=== PATIENT | female | born 1945 | race Caucasian/White ===

== ENCOUNTER 2017-07-11 11:38 | Emergency (ER) | payer MEDICARE, BC ==
[~2017-07-11] VITALS: Ht 154.9 cm; Wt 63.5 kg
--- NOTE | 2017-07-11 12:08 | ED Abdominal Pain ---
General Chief Complaint: Abdominal/GI Problems Stated Complaint: VOMITING/STOMACH PAIN Source of Information: Patient, Family (daughter) Exam Limitations: No Limitations History of Present Illness Time Seen By Provider: 11:56 Initial Comments Patient has ER by private conveyance with her daughter and a chief complaint that just yesterday she was feeling fine but this morning she woke up and started having a severe sudden onset of pain in her right upper quadrant radiating down to her right lower quadrant. She says that this also brought on nausea because of the severe pain and she vomited yellow liquid but no blood in it. She's had no diarrhea she had a small bowel movement this morning and yesterday as well. She does have problems with chronic constipation but no irritable bowel or inflammatory bowel disease. She's had colonoscopies in the past where they found polyps but because of her emphysema they're not offering her colonoscopies electively anymore. She is not sure she's had diverticulosis. She says she had pain similar to this several years ago that was colitis and she had spent 3 days in the hospital getting IV antibiotics for it. She denies any fevers chills or rash. She does not have shortness of breath although she is feeling a burning sensation in her mid chest that she equates with heartburn after she threw up. Patient still smokes but does not have any history of heart disease. Allergies and Home Medications Allergies Coded Allergies: atropine (Verified Allergy, Unknown, 07/11/17) codeine (Verified Allergy, Unknown, 07/11/17) diphenoxylate (Verified Allergy, Unknown, 07/11/17) meperidine (Verified Allergy, Unknown, 07/11/17) Home Medications Budesonide/Formoterol Fumarate 10.2 Gm Hfa.aer.ad, 2 PUFF IH BID, (Reported) Omeprazole 20 Mg Capsule.dr, 20 MG PO, (Reported) Review of Systems Constitutional: No chills, No fever, No malaise EENTM: No Blurred Vision, No Double Vision Respiratory: Denies Cough, Denies Shortness of Air Cardiovascular: See HPI, Chest Pain (burning midline), Denies Edema, Denies Palpitations, Denies Syncope Gastrointestinal: Denies Abdomen Distended, Abdominal Pain, Constipated, Denies Diarrhea, Denies Difficulty Swallowing, Nausea, Vomiting Genitourinary: Denies Burning, Denies Discharge Musculoskeletal: No back pain, No joint pain Skin: No pruritus, No rash Psychiatric/Neurological: Denies Headache, Denies Numbness, Denies Paresthesia Past Ujcckdi-Uytaqo-Ecswro Hx Patient Social History Alcohol Use: Regular Use Alcohol Beverage of Choice: Beer Recreational Drug Use: No Smoking Status: Current Everyday Smoker Type Used: Cigarettes Recent Foreign Travel: No Contact w/Someone Who Travel: No Recent Hopitalizations: No Physical Abuse: No Sexual Abuse: No Mistreated: No Fear: No Seasonal Allergies Seasonal Allergies: No Surgeries History of Surgeries: Yes (hemrroid) Surgeries: Section Respiratory History of Respiratory Disorde: Yes Respiratory Disorders: Emphysema Currently Using CPAP: No Cardiovascular History of Cardiac Disorders: No Neurological History of Neurological Disord: No Genitourinary History of Genitourinary Disor: No Gastrointestinal History of Gastrointestinal Di: Yes Gastrointestinal Disorders: Colitis Musculoskeletal History of Musculoskeletal Dis: No Endocrine History of Endocrine Disorders: No HEENT History of HEENT Disorders: No Cancer History of Cancer: No Psychosocial History of Psychiatric Problem: No Suicide Risk Score: 0 Blood Transfusions History of Blood Disorders: No Physical Exam Vital Signs VS - Last 72 Hours, by Label 07/11/17 11:58 Temp 97.2 Pulse 53 Resp 20 B/P (MAP) 146/93 (110) Pulse Ox 99 Capillary Refill : General Appearance: WD/WN, moderate distress HEENT: PERRL/EOMI, normal ENT inspection, TMs normal, pharynx normal Neck: full range of motion, normal inspection Respiratory: chest non-tender, lungs clear, normal breath sounds, no respiratory distress, no accessory muscle use Cardiovascular: normal peripheral pulses, regular rate, rhythm, no edema, no murmur Peripheral Pulses: 2+ Radial Pulses (R), 2+ Radial Pulses (L) Gastrointestinal: normal bowel sounds, no organomegaly, no pulsatile mass, guarding, No rebound, tenderness (diffuse tenderness on the right side than left but none over McBurney's point, no rebound tenderness and negative for Barger sign.) Extremities: normal range of motion, non-tender, normal inspection, no pedal edema, normal capillary refill Back: normal inspection, CVA tenderness (L) (mild) Neurologic/Psychiatric: alert, normal mood/affect, oriented x 3 Skin: normal color, warm/dry Progress/Results/Core Measures Results/Orders Lab Results Laboratory Tests Test 12/24/17 11:54 07/11/17 13:58 Range/Units White Blood Count 11.1 H 4.3-11.0 10^3/uL Red Blood Count 5.99 H 4.35-5.85 10^6/uL Hemoglobin 14.9 11.5-16.0 G/DL Hematocrit 46 35-52 % Mean Corpuscular Volume 77 L 80-99 FL Mean Corpuscular Hemoglobin 25 25-34 PG Mean Corpuscular Hemoglobin Concent 33 32-36 G/DL Red Cell Distribution Width 20.1 H 10.0-14.5 % Platelet Count 732 H 130-400 10^3/uL Mean Platelet Volume 10.9 H 7.4-10.4 FL Neutrophils (%) (Auto) 52 42-75 % Lymphocytes (%) (Auto) 34 12-44 % Monocytes (%) (Auto) 12 0-12 % Eosinophils (%) (Auto) 2 0-10 % Basophils (%) (Auto) 1 0-10 % Neutrophils # (Auto) 5.7 1.8-7.8 X 10^3 Lymphocytes # (Auto) 3.7 1.0-4.0 X 10^3 Monocytes # (Auto) 1.3 H 0.0-1.0 X 10^3 Eosinophils # (Auto) 0.2 0.0-0.3 10^3/uL Basophils # (Auto) 0.1 0.0-0.1 10^3/uL Sodium Level 140 135-145 MMOL/L Potassium Level 3.9 3.6-5.0 MMOL/L Chloride Level 104 98-107 MMOL/L Carbon Dioxide Level 21 21-32 MMOL/L Anion Gap 15 H 5-14 MMOL/L Blood Urea Nitrogen 15 7-18 MG/DL Creatinine 0.75 0.60-1.30 MG/DL Estimat Glomerular Filtration Rate > 60 BUN/Creatinine Ratio 20 Glucose Level 102 70-105 MG/DL Calcium Level 9.7 8.5-10.1 MG/DL Magnesium Level 2.0 1.8-2.4 MG/DL Total Bilirubin 1.7 H 0.1-1.0 MG/DL Aspartate Amino Transf (AST/SGOT) 19 5-34 U/L Alanine Aminotransferase (ALT/SGPT) 15 0-55 U/L Alkaline Phosphatase 66 40-136 U/L Troponin I < 0.30 <0.30 NG/ML C-Reactive Protein High Sensitivity 0.12 0.00-0.50 MG/DL Total Protein 7.5 6.4-8.2 GM/DL Albumin 4.3 3.2-4.5 GM/DL Lipase 29 8-78 U/L Urine Color YELLOW Urine Clarity CLEAR Urine pH 6.5 5-9 Urine Specific [place] 1.010 L 1.016-1.022 Urine Protein 1+ H NEGATIVE Urine Glucose (UA) NEGATIVE NEGATIVE Urine Ketones 3+ H NEGATIVE Urine Nitrite NEGATIVE NEGATIVE Urine Bilirubin NEGATIVE NEGATIVE Urine Urobilinogen NORMAL NORMAL MG/DL Urine Leukocyte Esterase 1+ H NEGATIVE Urine RBC (Auto) NEGATIVE NEGATIVE Urine RBC NONE /HPF Urine WBC 5-10 H /HPF Urine Squamous Epithelial Cells 10-25 H /HPF Urine Crystals NONE /LPF Urine Bacteria TRACE /HPF Urine Casts NONE /LPF Urine Mucus NEGATIVE /LPF Urine Culture Indicated NO My Orders Orders - DOUG KAUR Ct Abd/Pelv W (Appendicitis) (07/11/17 12:08) Saline Lock/Iv-Start (07/11/17 12:08) Cbc With Automated Diff (07/11/17 12:08) Comprehensive Metabolic Panel (07/11/17 12:08) Hs C Reactive Protein (07/11/17 12:08) Lipase (07/11/17 12:08) Magnesium (07/11/17 12:08) Troponin I (07/11/17 12:08) Ua Culture If Indicated (07/11/17 12:08) Chest 1 View, Ap/Pa Only (07/11/17 12:08) Ekg Tracing (07/11/17 12:08) Fentanyl Injection (Sublimaze Injection (07/11/17 12:15) Ondansetron Injection (Zofran Injectio (07/11/17 12:15) Iohexol Injection (Omnipaque 350 Mg/Ml 1 (07/11/17 12:15) Ns (Ivpb) (Sodium Chloride 0.9% Ivpb Bag (07/11/17 12:15) Fentanyl Injection (Sublimaze Injection (07/11/17 13:45) Lidocaine 2% Viscous 15 Ml (Xylocaine Vi (07/11/17 14:15) Famotidine Tablet (Pepcid Tablet) (07/11/17 14:13) Antacid Suspension (Mylanta Suspension (07/11/17 14:15) Medications Given in ED Current Medications Medications Dose Ordered Sig/Aubrie Route Start Time Stop Time Status Last Admin Dose Admin Al Hydrox/Mg Hydrox/Simethicone 30 ml ONCE ONCE PO 07/11/17 14:15 07/11/17 14:16 DC 07/11/17 14:24 30 ML Fentanyl Citrate 50 mcg ONCE ONCE IVP 07/11/17 12:15 07/11/17 12:16 DC 07/11/17 12:40 50 MCG Fentanyl Citrate 50 mcg ONCE ONCE IVP 07/11/17 13:45 07/11/17 13:46 DC 07/11/17 13:39 50 MCG Iohexol 100 ml ONCE ONCE IV 07/11/17 12:15 07/11/17 12:23 DC 07/11/17 12:48 100 ML Lidocaine HCl 15 ml ONCE ONCE PO 07/11/17 14:15 07/11/17 14:16 DC 07/11/17 14:24 15 ML Ondansetron HCl 4 mg ONCE ONCE IVP 07/11/17 12:15 07/11/17 12:16 DC 07/11/17 12:40 4 MG Sodium Chloride 100 ml ONCE ONCE IV 07/11/17 12:15 07/11/17 12:23 DC 07/11/17 12:48 80 ML Vital Signs/I&O Vital Sign - Last 12Hours 07/11/17 11:58 Temp 97.2 Pulse 53 Resp 20 B/P (MAP) 146/93 (110) Pulse Ox 99 Progress Note #1: Time: 12:16 Progress Note Colitis/diverticulitis certainly could be in the differential. Appendicitis possible. She has no mesenteric signs. It is not a tearing sensation like a AAA and she does not seem to be a vasculopath despite being a smoker. It's all certain that the burning sensation she feels the middle of her chest probably more due to the after effects of having just vomited however we will go ahead and obtain an EKG and troponin given her age with for any cardiac involvement. She denies any prior cardiac history. Other possibilities would be a urinary tract infection or pyelonephritis or if we see a lot of blood in the UA we may think about a kidney stone given the severity of her pain and left CVA TTPerc. Progress Note #2: Time: 14:[address], x-ray unremarkable. Her CBC may show some hemoconcentration versus a mild nonspecific white count that is probably due just to her recent nausea and retching. Her nausea is better now that she's had some Zofran. She still having some pain but is improved after 100 g of fentanyl. Her CT may show a little ileus but this could be treated outpatient with some GI rest. We'll give her a GI cocktail to see if that helps the burning pain. Progress Note #3: Time: 15:21 Progress Note Urinalysis shows contamination versus possible UTI. We'll go ahead and treat her with an antibiotic however because of her symptoms seemed more upper and epigastric in nature and improved significantly after the GI cocktail we will treat her also with Carafate and have her set up with her primary care physician to do an upper endoscopy. We'll also send her some Bristow in case she has breakthrough pain. ECG Initial ECG Impression Date: Jul 11, 2017 Initial ECG Impression Time: 12:19 Initial ECG Rate: 51 Initial ECG Rhythm: Normal Sinus Initial ECG Intervals: Normal Initial ECG Impression: Nonspecific Changes (right bundle-branch block) Initial ECG Comparisson: Unchanged Comment No ST elevation or depression. Diagnostic Imaging Diagonstic Imaging: Xray Plain Films/CT/US/NM/MRI: chest (1v) Comments VIA [facility]. [place], [place] NAME: KACEY ANTONY [facility] REC#: [id number] PT STATUS: REG ER : 1945 PHYSICIAN: DOUG KAUR MD ADMIT DATE: 07/11/17/ER Draft Date of Exam:07/11/17 CHEST 1 VIEW, AP/PA ONLY Indication: Abdominal pain with nausea and vomiting Comparison: None Findings: Single frontal view of the chest is obtained. Heart size is normal. The pulmonary vessels appear unremarkable. There is moderate hiatal hernia. There is moderate elevation of the right hemidiaphragm. The lungs are clear. Impression: 1. Hiatal hernia and elevation of the right hemidiaphragm. 2. No additional significant abnormalities demonstrated. Dictated on workstation # [id number] Dict: 07/11/17 1304 Trans: 07/11/17 1307 [facility] [id number] Interpreted by: SHANDA CESAR DO Electronically signed by: Reviewed: Reviewed by Me Diagonstic Imaging: CT Plain Films/CT/US/NM/MRI: abdomen, pelvis Comments VIA [facility]. [place], [place] NAME: KACEY ANTONY [facility] REC#: [id number] PT STATUS: REG ER : 1945 PHYSICIAN: DOUG KAUR MD ADMIT DATE: 07/11/17/ER Draft Date of Exam:07/11/17 CT ABD/PELV W (APPENDICITIS) PROCEDURE: CT abdomen and pelvis with contrast, rule out appendicitis. TECHNIQUE: Multiple contiguous axial images were obtained through the abdomen and pelvis after the administration of intravenous contrast. INDICATION: Right lower quadrant pain. COMPARISON: None. FINDINGS: There is minimal atelectasis in the lung bases. There is a moderate hiatal hernia. There is an ill-defined low-density lesion in the inferior posterior left hepatic lobe measuring about 7 mm. This is too small to adequately characterize but probably represents a benign hemangioma. Portal vein enhances. The gallbladder appears unremarkable. The pancreas, spleen and adrenal glands appear unremarkable. Kidneys appear unremarkable. Ureters and bladder appear unremarkable. Uterus and adnexa appear unremarkable. There is diverticulosis without evidence of diverticulitis. Appendix appears normal. There is moderate amount of stool in the colon. There is some mildly distended fluid-filled small bowel in the mid and left upper abdomen which may be related to an ileus or enteritis. There is no free fluid, free air or adenopathy demonstrated. There is atherosclerosis of the abdominal aorta without aneurysm. No acute osseous abnormality is demonstrated. IMPRESSION: 1. There is some mild distended loops of small bowel in the mid and upper abdomen which is nonspecific but may be related to an enteritis or ileus. 2. Diverticulosis without evidence of diverticulitis. Appendix appears normal. 3. There is an indeterminate 7 mm low-density lesion in the liver, too small to characterize but probably a benign hemangioma. 4. Hiatal hernia. 5. No additional significant abnormality is demonstrated. Dictated on workstation # [id number] Dict: 07/11/17 1317 Trans: 07/11/17 1332 [facility] [id number] Interpreted by: SHANDA CESAR DO Electronically signed by: Reviewed: Reviewed by Me Departure Impression Impression: Primary Impression: Urinary tract infection Qualified Codes: N30.00 - Acute cystitis without hematuria Additional Impression: Epigastric abdominal pain Disposition: HOME, SELF-CARE Condition: Improved Departure-Patient Inst. Decision time for Depature: 15:22 Referrals: JULIO CESAR HAJI MD (PCP/Family) Primary Care Physician Patient Instructions: Urinary Tract Infection, Adult (DC) Add. Discharge Instructions: Drink plenty of fluids to flush her kidneys and we will culture urine and if the antibiotic that we have chosen for you is inappropriate we'll call you in 2- 3 days and change it up for you. Take the Keflex one capsule twice a day with food for 7 days. Your epigastric pain improved after you had a GI cocktail which may indicate ulcers or other disease of the stomach. We are going to put you on Carafate 1 tablet 4 times a day and I wanted to continue taking the omeprazole daily like you have been. Call your primary care physician Dr. Haji as soon as he is in the clinic and get set up to see him for a workup of your epigastric pain possibly to include an upper GI endoscopy. If you're having pain it's okay to use Tylenol 1000 mg every 8 hours as needed. Please avoid using NSAIDs such as ibuprofen, Motrin, Naprosyn, Aleve. If you have breakthrough pain you may use 1-2 Bristow every 6 hours as needed to control the pain. All discharge instructions reviewed with patient and/or family. Voiced understanding. Scripts Sucralfate (Carafate) 1 Gm Tablet 1 GM PO QID for 14 Days, #60 TAB 0 Refills Prov: DOUG KAUR 07/11/17 Cephalexin (Cephalexin) 500 Mg Tablet 500 MG PO BID for 7 Days, #14 TAB 0 Refills Prov: DOUG KAUR 07/11/17 Hydrocodone/Acetaminophen (Hydrocodon-Acetaminoph 7.5-325) 1 Each Tablet 1-2 EACH PO Q6H Y for BREAKTHROUGH PAIN, #20 TAB 0 Refills Prov: DOUG KAUR 07/11/17 Copy Copies To 1: JULIO CESAR HAJI MD, TITUS J Jul 11, 2017 12:08
[2017-07-11] MEDS ORDERED: OMEP20CA12 PO (12:09)
[2017-07-11] MEDS ORDERED: BUDE10.2 IH (12:09)
[2017-07-11] MEDS ORDERED: ONDANSETRON 4 MG/2 ML (SDV) Z0FRAN IVP ONE (12:15)
[2017-07-11] MEDS ORDERED: fentaNYL INJECTION 100 MCG/2 ML AMP IVP ONE ×2 (12:15→13:45)
[2017-07-11] MEDS ORDERED: IOHEXOL 350 MG/ML 100 ML (OMNIPAQUE 350) VIAL IV ONE (12:15)
[2017-07-11] MEDS ORDERED: NS 100 ML (IVPB) BAG IV ONE (12:15)
[2017-07-11 12:18] LABS: BASOPHILS # (AUTO) 0.1 10^3/uL (0.0-0.1); BASOPHILS % (AUTO) 1 % (0-10); EOSINOPHILS # (AUTO) 0.2 10^3/uL (0.0-0.3); EOSINOPHILS % (AUTO) 2 % (0-10); LYMPHOCYTES # (AUTO) 3.7 X 10^3 (1.0-4.0); LYMPHOCYTES % (AUTO) 34 % (12-44); MEAN CORPUSCULAR HEMOGLOBIN 25 PG (25-34); MEAN CORPUSCULAR HGB CONC 33 G/DL (32-36); MEAN CORPUSCULAR VOLUME 77 FL (80-99); MEAN PLATELET VOLUME 10.9 FL (7.4-10.4); MONOCYTES # (AUTO) 1.3 X 10^3 (0.0-1.0); MONOCYTES % (AUTO) 12 % (0-12); NEUTROPHILS # (AUTO) 5.7 X 10^3 (1.8-7.8); NEUTROPHILS % (AUTO) 52 % (42-75); PLATELET COUNT 732 10^3/uL (130-400); RED BLOOD COUNT 5.99 10^6/uL (4.35-5.85); RED CELL DISTRIBUTION WIDTH 20.1 % (10.0-14.5); WHITE BLOOD COUNT 11.1 10^3/uL (4.3-11.0)
[2017-07-11 12:33] LABS: ALANINE AMINOTRANSFERASE 15 U/L (0-55); ALBUMIN 4.3 GM/DL (3.2-4.5); ANION GAP 15 MMOL/L (5-14); ASPARTATE AMINO TRANSFERASE 19 U/L (5-34); BILIRUBIN,TOTAL 1.7 MG/DL (0.1-1.0); BLOOD UREA NITROGEN 15 MG/DL (7-18); BUN/CREATININE RATIO 20; CALCIUM 9.7 MG/DL (8.5-10.1); CARBON DIOXIDE 21 MMOL/L (21-32); CHLORIDE 104 MMOL/L (98-107); CREATININE SERUM 0.75 MG/DL (0.60-1.30); GFR ESTIMATED > 60; GLUCOSE 102 MG/DL (70-105); LIPASE 29 U/L (8-78); POTASSIUM 3.9 MMOL/L (3.6-5.0); SODIUM 140 MMOL/L (135-145); TOTAL PROTEIN 7.5 GM/DL (6.4-8.2); hs C REACTIVE PROTEIN 0.12 MG/DL (0.00-0.50)
[2017-07-11 12:39] LABS: TROPONIN I < 0.30 NG/ML (<0.30)
--- NOTE | 2017-07-11 13:08 | Diagnostic Imaging Report ---
Indication: Abdominal pain with nausea and vomiting Comparison: None Findings: Single frontal view of the chest is obtained. Heart size is normal. The pulmonary vessels appear unremarkable. There is moderate hiatal hernia. There is moderate elevation of the right hemidiaphragm. The lungs are clear. Impression: 1. Hiatal hernia and elevation of the right hemidiaphragm. 2. No additional significant abnormalities demonstrated. Dictated by: Dictated on workstation # [id number]
--- NOTE | 2017-07-11 13:33 | Diagnostic Imaging Report ---
PROCEDURE: CT abdomen and pelvis with contrast, rule out appendicitis. TECHNIQUE: Multiple contiguous axial images were obtained through the abdomen and pelvis after the administration of intravenous contrast. INDICATION: Right lower quadrant pain. COMPARISON: None. FINDINGS: There is minimal atelectasis in the lung bases. There is a moderate hiatal hernia. There is an ill-defined low-density lesion in the inferior posterior left hepatic lobe measuring about 7 mm. This is too small to adequately characterize but probably represents a benign hemangioma. Portal vein enhances. The gallbladder appears unremarkable. The pancreas, spleen and adrenal glands appear unremarkable. Kidneys appear unremarkable. Ureters and bladder appear unremarkable. Uterus and adnexa appear unremarkable. There is diverticulosis without evidence of diverticulitis. Appendix appears normal. There is moderate amount of stool in the colon. There is some mildly distended fluid-filled small bowel in the mid and left upper abdomen which may be related to an ileus or enteritis. There is no free fluid, free air or adenopathy demonstrated. There is atherosclerosis of the abdominal aorta without aneurysm. No acute osseous abnormality is demonstrated. IMPRESSION: 1. There is some mild distended loops of small bowel in the mid and upper abdomen which is nonspecific but may be related to an enteritis or ileus. 2. Diverticulosis without evidence of diverticulitis. Appendix appears normal. 3. There is an indeterminate 7 mm low-density lesion in the liver, too small to characterize but probably a benign hemangioma. 4. Hiatal hernia. 5. No additional significant abnormality is demonstrated. Dictated by: Dictated on workstation # [id number]
[2017-07-11 14:06] LABS: BILIRUBIN,URINE NEGATIVE (NEGATIVE); KETONES,URINE 3+ (NEGATIVE); LEUKOCYTE ESTERASE ,URINE 1+ (NEGATIVE); NITRITE,URINE NEGATIVE (NEGATIVE); PH,URINE 6.5 (5-9); PROTEIN,URINE 1+ (NEGATIVE); UROBILINOGEN,URINE NORMAL (NORMAL)
[2017-07-11] MEDS ORDERED: FAMOTIDINE 20 MG (PEPCID) TABLET PO STA (14:13)
[2017-07-11] MEDS ORDERED: LIDOCAINE 2% VISCOUS 15 ML UDC PO ONE (14:15)
[2017-07-11] MEDS ORDERED: ANTACID SUSP 30 ML UDC (MYLANTA) PO ONE (14:15)
[2017-07-11] MEDS ORDERED: CEPH500T PO (15:25)
[2017-07-11] MEDS ORDERED: SUCR1TAB36 PO (15:25)
[2017-07-11] MEDS ORDERED: HYDR-3816 PO (15:25)
[2017-07-11] MEDS ORDERED: HYDROcodone/APAP 7.5 MG/325 MG (LORTAB, LORCET PLUS) TABLET PO ONE (15:30)
[2017-07-11 15:35] VITALS: BP 162/78
== END 2017-07-11 15:35 | disposition home or self-care (01) ==
LOC: ER 11:42
DX: N39.0 Urinary tract infection, site not specified (principal); J43.9 Emphysema, unspecified; F17.210 Nicotine dependence, cigarettes, uncomplicated; Z87.59 Personal history of other complications of pregnancy, childbirth and the puerperium; Z87.19 Personal history of other diseases of the digestive system
CPT/HCPCS: 36415; 71010; 74177; 80053; 81000; 83690; 83735; 84484; 85025; 86141; 93005

== ENCOUNTER 2017-07-14 10:11 | Emergency (ER) | payer MEDICARE, BC ==
[~2017-07-14] VITALS: Ht 154.9 cm; Wt 63.5 kg
[~2017-07-14 10:11] MED LIST: BUDE10.2 IH; CEPH500T PO; HYDR-3816 PO; OMEP20CA12 PO; SUCR1TAB36 PO
[2017-07-14] MEDS ORDERED: NS IV 1000 ML 1,000 ML IV SCH (10:45)
[2017-07-14] MEDS ORDERED: ONDANSETRON 4 MG/2 ML (SDV) Z0FRAN IVP ONE (11:15)
[2017-07-14 11:22] LABS: BASOPHILS % (AUTO) 0 % (0-10); EOSINOPHILS # (AUTO) 0.1 10^3/uL (0.0-0.3); EOSINOPHILS % (AUTO) 1 % (0-10); LYMPHOCYTES # (AUTO) 1.3 X 10^3 (1.0-4.0); LYMPHOCYTES % (AUTO) 12 % (12-44); MEAN CORPUSCULAR HEMOGLOBIN 25 PG (25-34); MEAN CORPUSCULAR HGB CONC 33 G/DL (32-36); MEAN CORPUSCULAR VOLUME 75 FL (80-99); MEAN PLATELET VOLUME 11.1 FL (7.4-10.4); MONOCYTES # (AUTO) 2.3 X 10^3 (0.0-1.0); MONOCYTES % (AUTO) 21 % (0-12); NEUTROPHILS % (AUTO) 66 % (42-75); PLATELET COUNT 722 10^3/uL (130-400); RED BLOOD COUNT 6.75 10^6/uL (4.35-5.85); RED CELL DISTRIBUTION WIDTH 21.1 % (10.0-14.5); WHITE BLOOD COUNT 10.7 10^3/uL (4.3-11.0)
[2017-07-14 11:26] LABS: KETONES,URINE 3+ (NEGATIVE); LEUKOCYTE ESTERASE ,URINE 2+ (NEGATIVE); NITRITE,URINE NEGATIVE (NEGATIVE); PH,URINE 5 (5-9); PROTEIN,URINE 2+ (NEGATIVE); UROBILINOGEN,URINE 1 MG/DL (NORMAL)
[2017-07-14 11:36] LABS: BILIRUBIN,URINE 2+ (NEGATIVE); WBC,URINE 25-50 /HPF
[2017-07-14 11:37] LABS: SQUAMOUS EPITHELIAL CELL,UR 25-50 /HPF
[2017-07-14 11:44] LABS: BILIRUBIN,TOTAL 1.4 MG/DL (0.1-1.0); CALCIUM 10.3 MG/DL (8.5-10.1); CREATININE SERUM 1.04 MG/DL (0.60-1.30); POTASSIUM 4.5 MMOL/L (3.6-5.0); TOTAL PROTEIN 7.9 GM/DL (6.4-8.2)
[2017-07-14] MEDS ORDERED: NS IV 500 ML 500 ML IV SCH (11:45)
[2017-07-14] MEDS ORDERED: cefTRIAXone INJECTION 1,000 MG in NS (IVPB) 50 ML IV ONE (11:45)
[2017-07-14 11:49] LABS: BAND NEUTROPHILS 14 %; BASOPHILS % (MANUAL) 0 %; EOSINOPHILS % (MANUAL) 0 %; LYMPHOCYTES % (MANUAL) 15 %; NEUTROPHILS % (MANUAL) 52 %
[2017-07-14 11:50] LABS: ANISOCYTOSIS SLIGHT; MICROCYTOSIS SLIGHT
--- NOTE | 2017-07-14 11:56 | ED GI ---
General Chief Complaint: Abdominal/GI Problems Stated Complaint: N/V/D Nursing Triage Note: PT. WAS HERE ON WEDNESDAY BUT IS NOT GETTING BETTER. STATES SHE CAN'T TAKE HER MEDS THAT WERE PRESCRIBED FOR HER BECAUSE SHE CAN'T PUT ANYTHING ON HER STOMACH. C/O EMESIS EVERY 3-4 HRS. C/O SEVERE ABD PAIN. Sepsis Screen: Possible Sepsis Risk Source of Information: Patient Exam Limitations: No Limitations History of Present Illness Time Seen By Provider: 11:54 Initial Comments To ER with reports of nausea vomiting diarrhea and abdominal pain. She was seen here on 07/11 for the same. She did have a CT scan done and was diagnosed with a bladder infection. She has been unable to take the oral antibiotics because of nausea and vomiting. She complains of diffuse crampy abdominal pain. She's not had a bowel movement in 4 days but she is passing gas most recently this morning. No fevers or chills. She is unable to eat or drink because of the nausea Timing/Duration: 3-4 Days Severity/Quality: Moderate, Cramping Radiation: No Radiation, Back Activities at Onset: None Associated Symptoms: Nausea/Vomiting Allergies and Home Medications Allergies Coded Allergies: atropine (Verified Allergy, Unknown, 07/11/17) codeine (Verified Allergy, Unknown, 07/11/17) diphenoxylate (Verified Allergy, Unknown, 07/11/17) meperidine (Verified Allergy, Unknown, 07/11/17) Home Medications Budesonide/Formoterol Fumarate 10.2 Gm Hfa.aer.ad, 2 PUFF IH BID, (Reported) Cephalexin 500 Mg Tablet, 500 MG PO BID for 7 Days, #14 Ref 0 Prescribed by: DOUG KAUR on 07/11/17 1525 Hydrocodone/Acetaminophen 1 Each Tablet, 1-2 EACH PO Q6H PRN for BREAKTHROUGH PAIN, #20 Ref 0 Prescribed by: DOUG KAUR on 07/11/17 1525 Omeprazole 20 Mg Capsule.dr, 20 MG PO, (Reported) Sucralfate 1 Gm Tablet, 1 GM PO QID for 14 Days, #60 Ref 0 Prescribed by: DOUG KAUR on 07/11/17 1525 Review of Systems Constitutional: see HPI, No chills EENTM: No Symptoms Reported Respiratory: No Symptoms Reported Cardiovascular: No Symptoms Reported Gastrointestinal: See HPI, Abdominal Pain, Diarrhea, Nausea Genitourinary: No Symptoms Reported Musculoskeletal: no symptoms reported Skin: no symptoms reported Psychiatric/Neurological: No Symptoms Reported Endocrine: No Symptoms Reported Hematologic/Lymphatic: No Symptoms Reported Past Hsghgzv-Deuptn-Zpyozl Hx Patient Social History Alcohol Beverage of Choice: Beer Type Used: Cigarettes Recent Foreign Travel: No Contact w/Someone Who Travel: No Recent Infectious Disease Expo: No Recent Hopitalizations: No Seasonal Allergies Seasonal Allergies: No Surgeries History of Surgeries: Yes (hemrroid) Surgeries: Section Respiratory History of Respiratory Disorde: Yes Respiratory Disorders: Emphysema Currently Using CPAP: No Cardiovascular History of Cardiac Disorders: No Neurological History of Neurological Disord: No Genitourinary History of Genitourinary Disor: No Gastrointestinal History of Gastrointestinal Di: Yes Gastrointestinal Disorders: Colitis Musculoskeletal History of Musculoskeletal Dis: No Endocrine History of Endocrine Disorders: No HEENT History of HEENT Disorders: No Cancer History of Cancer: No Psychosocial History of Psychiatric Problem: No Blood Transfusions History of Blood Disorders: No Physical Exam Vital Signs VS - Last 72 Hours, by Label 07/14/17 10:35 Temp 98.1 Pulse 102 Resp 18 B/P (MAP) 149/79 (102) Pulse Ox 95 O2 Delivery Room Air Capillary Refill : Less Than 3 Seconds General Appearance: WD/WN, no apparent distress HEENT: PERRL/EOMI, normal ENT inspection Neck: non-tender, full range of motion Respiratory: normal breath sounds, no respiratory distress, no accessory muscle use Cardiovascular: regular rate, rhythm, no murmur Gastrointestinal: normal bowel sounds (hyperactive), non tender, soft, tenderness (diffuse crampy abdominal pain) Extremities: normal range of motion, non-tender Neurologic/Psychiatric: alert, normal mood/affect, oriented x 3 Skin: normal color, warm/dry Progress/Results/Core Measures Results/Orders Lab Results Laboratory Tests Test 07/14/17 11:12 07/14/17 11:19 Range/Units White Blood Count 10.7 4.3-11.0 10^3/uL Red Blood Count 6.75 H 4.35-5.85 10^6/uL Hemoglobin 16.6 H 11.5-16.0 G/DL Hematocrit 51 35-52 % Mean Corpuscular Volume 75 L 80-99 FL Mean Corpuscular Hemoglobin 25 25-34 PG Mean Corpuscular Hemoglobin Concent 33 32-36 G/DL Red Cell Distribution Width 21.1 H 10.0-14.5 % Platelet Count 722 H 130-400 10^3/uL Mean Platelet Volume 11.1 H 7.4-10.4 FL Neutrophils (%) (Auto) 66 42-75 % Lymphocytes (%) (Auto) 12 12-44 % Monocytes (%) (Auto) 21 H 0-12 % Eosinophils (%) (Auto) 1 0-10 % Basophils (%) (Auto) 0 0-10 % Neutrophils # (Auto) 7.0 1.8-7.8 X 10^3 Lymphocytes # (Auto) 1.3 1.0-4.0 X 10^3 Monocytes # (Auto) 2.3 H 0.0-1.0 X 10^3 Eosinophils # (Auto) 0.1 0.0-0.3 10^3/uL Basophils # (Auto) 0.0 0.0-0.1 10^3/uL Neutrophils % (Manual) 52 % Lymphocytes % (Manual) 15 % Monocytes % (Manual) 19 % Eosinophils % (Manual) 0 % Basophils % (Manual) 0 % Band Neutrophils 14 % Anisocytosis SLIGHT Microcytosis SLIGHT Sodium Level 137 135-145 MMOL/L Potassium Level 4.5 3.6-5.0 MMOL/L Chloride Level 100 98-107 MMOL/L Carbon Dioxide Level 22 21-32 MMOL/L Anion Gap 15 H 5-14 MMOL/L Blood Urea Nitrogen 36 H 7-18 MG/DL Creatinine 1.04 0.60-1.30 MG/DL Estimat Glomerular Filtration Rate 52 BUN/Creatinine Ratio 35 Glucose Level 126 H 70-105 MG/DL Calcium Level 10.3 H 8.5-10.1 MG/DL Total Bilirubin 1.4 H 0.1-1.0 MG/DL Aspartate Amino Transf (AST/SGOT) 15 5-34 U/L Alanine Aminotransferase (ALT/SGPT) 11 0-55 U/L Alkaline Phosphatase 57 40-136 U/L Total Protein 7.9 6.4-8.2 GM/DL Albumin 4.0 3.2-4.5 GM/DL Urine Color YELLOW Urine Clarity SLIGHTLY CLOUDY Urine pH 5 5-9 Urine Specific [place] 1.025 H 1.016-1.022 Urine Protein 2+ H NEGATIVE Urine Glucose (UA) NEGATIVE NEGATIVE Urine Ketones 3+ H NEGATIVE Urine Nitrite NEGATIVE NEGATIVE Urine Bilirubin 2+ H NEGATIVE Urine Urobilinogen 1 NORMAL MG/DL Urine Leukocyte Esterase 2+ H NEGATIVE Urine RBC (Auto) NEGATIVE NEGATIVE Urine RBC RARE /HPF Urine WBC 25-50 H /HPF Urine Squamous Epithelial Cells 25-50 H /HPF Urine Crystals NONE /LPF Urine Bacteria MODERATE H /HPF Urine Casts PRESENT /LPF Urine Hyaline Casts 5-10 H /LPF Urine Mucus NEGATIVE /LPF Urine Culture Indicated YES My Orders Orders - SHANICE AGUIAR APRN Cbc With Automated Diff (07/14/17 10:41) Comprehensive Metabolic Panel (07/14/17 10:41) Ua Culture If Indicated (07/14/17 10:41) Saline Lock/Iv-Start (07/14/17 10:42) Ns Iv 1000 Ml (Sodium Chloride 0.9%) (07/14/17 10:45) Ondansetron Injection (Zofran Injectio (07/14/17 11:15) Manual Differential (07/14/17 11:12) Urine Culture (07/14/17 11:19) Ceftriaxone Injection (Rocephin Injectio (07/14/17 11:45) Ns Iv 500 Ml (Sodium Chloride 0.9%) (07/14/17 11:45) Hyoscyamine Sl Tablet (Levsin Sl Tablet) (07/14/17 12:00) Medications Given in ED Current Medications Medications Dose Ordered Sig/Aubrie Route Start Time Stop Time Status Last Admin Dose Admin Ceftriaxone Sodium 1000 mg/ Sodium Chloride 50 ml @ 100 mls/hr ONCE ONCE IV 07/14/17 11:45 07/14/17 12:14 DC 07/14/17 12:13 100 MLS/HR Hyoscyamine Sulfate 0.25 mg ONCE ONCE PO 07/14/17 12:00 07/14/17 12:01 DC 07/14/17 12:12 0.25 MG Ondansetron HCl 4 mg ONCE ONCE IVP 07/14/17 11:15 07/14/17 11:16 DC 07/14/17 12:11 4 MG Vital Signs/I&O Vital Sign - Last 12Hours 07/14/17 10:35 Temp 98.1 Pulse 102 Resp 18 B/P (MAP) 149/79 (102) Pulse Ox 95 O2 Delivery Room Air Blood Pressure Mean: 102 Diagnostic Imaging Diagonstic Imaging: CT Comments CT FROM 07/11/17 NAME: KACEY ANTONY [facility] REC#: [id number] PHYSICIAN: DOUG KAUR MD CC: SHANDA CESAR DO; DOUG KAUR Page 2 of 2 RADIOLOGY REPORT VIA [facility], [facility]. [place], [place] CC: SHANDA CESAR DO; DOUG KAUR Page 1 of 2 RADIOLOGY REPORT IMPRESSION: 1. There is some mild distended loops of small bowel in the mid and upper abdomen which is nonspecific but may be related to an enteritis or ileus. 2. Diverticulosis without evidence of diverticulitis. Appendix appears normal. 3. There is an indeterminate 7 mm low-density lesion in the liver, too small to characterize but probably a benign hemangioma. 4. Hiatal hernia. 5. No additional significant abnormality is demonstrated. Dictated by: Dictated on workstation # [id number] Dict: 07/11/17 1317 Trans: 07/11/17 1539 Interpreted by: SHANDA CESAR DO Electronically signed by: SHANDA CESAR DO 07/11/17 1539 Departure Communication (Admissions) Progress Notes I discussed the case with Dr. Chris Haji. He recommends IV fluids in the emergency room, Rocephin, prescription for Zofran and discharged to home to continue oral antibiotics. He will follow up with her in the clinic later this week. Impression Impression: Primary Impression: Nausea and vomiting Additional Impression: Urinary tract infection Disposition: 01 HOME, SELF-CARE Condition: Stable Departure-Patient Inst. Decision time for Depature: 12:21 Referrals: CHRIS HAJI MD (PCP/Family) Primary Care Physician Patient Instructions: Urinary Tract Infection, Adult (DC) Add. Discharge Instructions: 1. Drink only clear liquids and have nothing to eat and her nausea is improved. This would include Gatorade, chicken broth, Jell-O. Return to ER for any high fevers or other concerns. Take nausea medication as needed control nausea and start your antibiotics tomorrow. All discharge instructions reviewed with patient and/or family. Voiced understanding. Scripts Ondansetron (Zofran Odt) 8 Mg Tab.rapdis 8 MG PO Q6H Y for NAUSEA/VOMITING-1ST LINE, #10 TAB Prov: SHANICE AGUIAR APRN 07/14/17 Copy Copies To 1: CHRIS HAJI MD, PETER J APRN Jul 14, 2017 11:56
[2017-07-14] MEDS ORDERED: HYOSCYAMINE 0.125 MG (LEVSIN) TAB PO ONE (12:00)
[2017-07-14] MEDS ORDERED: ONDA8TAB9 PO (12:23)
[2017-07-14 12:52] VITALS: BP 109/62
== END 2017-07-14 12:54 | disposition home or self-care (01) ==
LOC: EDUNIT# 10:11 → ER 10:13
DX: N39.0 Urinary tract infection, site not specified (principal); R11.2 Nausea with vomiting, unspecified; J43.9 Emphysema, unspecified; Z87.59 Personal history of other complications of pregnancy, childbirth and the puerperium; Z87.19 Personal history of other diseases of the digestive system
CPT/HCPCS: 36415; 80053; 81000; 85007; 85027; 87088; 96361; 96365; 96375

== ENCOUNTER → 2018-01-26 | Outpatient (CLI) | payer MEDICARE ==
[~2018-01-26] MED LIST changes: +HYDR-34 PO; -HYDR-3816 PO; +ONDA8TAB9 PO
[2018-01-26 13:24] LABS: CREATININE SERUM 1.26 MG/DL (0.60-1.30)
== END ==
LOC: LAB 12:45
PROVIDERS: ATTEND Internal Medicine Gastroenterology
DX: R10.11 Right upper quadrant pain (principal); R10.12 Left upper quadrant pain; R10.31 Right lower quadrant pain; R10.32 Left lower quadrant pain
CPT/HCPCS: 36415; 82565; 84520

== ENCOUNTER → 2018-01-27 | Outpatient (CLI) | payer MEDICARE ==
[~2018-01-27] MED LIST changes: +IOHEXOL 350 MG/ML 100 ML (OMNIPAQUE 350) VIAL IV ONE; +NS 250 ML (IVPB) BAG IV ONE
--- NOTE | 2018-01-27 13:17 | Diagnostic Imaging Report ---
PROCEDURE: CT abdomen and pelvis with contrast. TECHNIQUE: Multiple contiguous axial images were obtained through the abdomen and pelvis after administration of intravenous contrast. INDICATION: Diarrhea. FINDINGS: The previous CT abdomen/pelvis exam of 07/11/2017 did note fluid-filled segments of small bowel. It is not certain whether this finding was secondary to an ileus or enteritis. On this study, the dilated fluid-filled segments of small bowel are not as conspicuous as on the prior study. However, there are a few dilated fluid-filled segments of small bowel still present low in the pelvis. This appearance is nonspecific but could be secondary to enteritis. The appendix was visualized and is not abnormally thickened. There are numerous diverticula involving the sigmoid and descending colon, but there is no clear evidence for acute diverticulitis. There is no pelvic mass or free fluid collection evident. The urinary bladder and uterus are grossly unremarkable. The liver, spleen, pancreas, adrenals, aorta, and inferior vena cava show no sign of an acute abnormality. The stomach is filled with fluid and consequently difficult to assess. The large hiatal hernia seen previously is again evident and does not appear to have changed significantly. The lung bases are generally clear aside from mild compressive atelectasis due to the elevated right hemidiaphragm. The bone windows show no evidence for a fracture or for a destructive lesion. IMPRESSION: 1. There are a few fluid-filled segments of small bowel low in the pelvis. These findings are nonspecific but could be secondary to enteritis. 2. There is no acute pelvic abnormality noted otherwise. 3. The large hiatal hernia seen previously is again evident and no different. Dictated by: Dictated on workstation # [id number]
== END ==
LOC: RAD 07:57
PROVIDERS: ATTEND Internal Medicine Gastroenterology
DX: K44.9 Diaphragmatic hernia without obstruction or gangrene (principal); R19.7 Diarrhea, unspecified
CPT/HCPCS: 74177

== ENCOUNTER 2018-03-24 23:55 | Inpatient (IN) | payer MEDICARE ==
[~2018-03-24] VITALS: Ht 157.5 cm; Wt 62.3 kg
[~2018-03-24 23:55] MED LIST changes: -IOHEXOL 350 MG/ML 100 ML (OMNIPAQUE 350) VIAL IV ONE; -NS 250 ML (IVPB) BAG IV ONE
[2018-03-25] MEDS ORDERED: ONDANSETRON 4 MG/2 ML (SDV) Z0FRAN ONE (00:06)
[2018-03-25] MEDS ORDERED: NS IV 1000 ML 1,000 ML IV ONE (00:06)
[2018-03-25] MEDS ORDERED: ONDANSETRON 4 MG/2 ML (SDV) Z0FRAN IVP ONE (00:15)
[2018-03-25] MEDS: LIDOCAINE 2% VISCOUS 15 ML UDC PO ONE ×2 (00:15→00:23)
[2018-03-25] MEDS: ANTACID SUSP 30 ML UDC (MYLANTA) PO ONE ×2 (00:15→00:23)
[2018-03-25] MEDS ORDERED: raNItidine INJECTION 50 MG in NS (IVPB) 50 ML IV ONE (00:15)
[2018-03-25 00:21] LABS: BASOPHILS # (AUTO) 0.1 10^3/uL (0.0-0.1); BASOPHILS % (AUTO) 1 % (0-10); EOSINOPHILS # (AUTO) 0.2 10^3/uL (0.0-0.3); EOSINOPHILS % (AUTO) 2 % (0-10); HEMATOCRIT 52 % (35-52); LYMPHOCYTES % (AUTO) 15 % (12-44); MEAN CORPUSCULAR HEMOGLOBIN 26 PG (25-34); MEAN CORPUSCULAR HGB CONC 33 G/DL (32-36); MEAN CORPUSCULAR VOLUME 79 FL (80-99); MEAN PLATELET VOLUME 11.1 FL (7.4-10.4); MONOCYTES # (AUTO) 0.9 X 10^3 (0.0-1.0); MONOCYTES % (AUTO) 7 % (0-12); NEUTROPHILS # (AUTO) 10.4 X 10^3 (1.8-7.8); NEUTROPHILS % (AUTO) 76 % (42-75); PLATELET COUNT 710 10^3/uL (130-400); RED BLOOD COUNT 6.52 10^6/uL (4.35-5.85); RED CELL DISTRIBUTION WIDTH 19.9 % (10.0-14.5); WHITE BLOOD COUNT 13.6 10^3/uL (4.3-11.0)
[2018-03-25 00:35] LABS: ALBUMIN 4.3 GM/DL (3.2-4.5); BILIRUBIN,TOTAL 0.9 MG/DL (0.1-1.0); CALCIUM 10.3 MG/DL (8.5-10.1); CREATININE SERUM 1.02 MG/DL (0.60-1.30); MAGNESIUM 2.3 MG/DL (1.8-2.4); POTASSIUM 3.8 MMOL/L (3.6-5.0); TOTAL PROTEIN 7.5 GM/DL (6.4-8.2)
[2018-03-25 00:53] LABS: CLARITY,URINE CLEAR; COLOR,URINE YELLOW; GLUCOSE, URINE (UA) NEGATIVE (NEGATIVE); KETONES,URINE 1+ (NEGATIVE); LEUKOCYTE ESTERASE ,URINE 2+ (NEGATIVE); NITRITE,URINE NEGATIVE (NEGATIVE); PH,URINE 5 (5-9); PROTEIN,URINE 2+ (NEGATIVE); UROBILINOGEN,URINE 1 MG/DL (NORMAL)
[2018-03-25 00:55] LABS: BACTERIA,URINE MODERATE /HPF; BILIRUBIN,URINE 1+ (NEGATIVE); SQUAMOUS EPITHELIAL CELL,UR 0-2 /HPF; WBC,URINE 0-2 /HPF
[2018-03-25] MEDS ORDERED: PROMETHAZINE INJ 25 MG/ML (PHENERGAN) AMP IVP ONE (01:00)
[2018-03-25] MEDS ORDERED: fentaNYL INJECTION 100 MCG/2 ML AMP IVP ONE (01:00)
--- NOTE | 2018-03-25 02:46 | ED Abdominal Pain ---
General Chief Complaint: Abdominal/GI Problems Stated Complaint: ABD PAIN Nursing Triage Note: PT TO ROOM #7 [facility]IA [facility]. A&OX4. CO ABD PAIN WITH N/V/D. PT REPORTS SHE BEGAN TO HAVE ABD EARLY EVENING (03/24/18) WHICH PROGRESSIVELY GOT WORSE RESULTING IN N/V/D. [facility] REPORTS PT HAD REPETITIVE EMESIS IN TRANSIT EQUALLY TO 200 ML YELLOW VOMIT. PT NOTED TO BE GUARD ABD IN PAIN. PT REPORTS 30 DAYS PRIOR (02/22/18) PT HAD ABD SURGICAL LAP TO REMOVE ADHESIONS FOUND ON HER SMALL INTESTINE. EMS PLACED 20G IV TO LT AC IN TRANSIT TO ED AND REPORTS BS OF 136. Sepsis Screen: No Definite Risk Source of Information: Patient, EMS Exam Limitations: No Limitations History of Present Illness Date Seen by Provider: Mar 25, 2018 Time Seen by Provider: 23:56 Initial Comments This 73-year-old woman presents to the emergency room via EMS with a intense nausea and vomiting and upper abdominal pain. She received Zofran 4 mg by EMS. She has approximately 200 mL of brown emesis in an emesis bag. Fingerstick blood sugar was 136. Patient reports she had surgery for adhesional lysis performed at [facility] by Dr. Guy one month ago. She has also seen Dr. Ford for GI problems. Dr. Chris Haji is her primary care provider. She denies any fever. She has had multiple bowel movements at home today which were loose. Patient notes she has a large hiatal hernia. She had similar pain on the prior visit which resolved with GI cocktail. Allergies and Home Medications Allergies Coded Allergies: atropine (Verified Allergy, Unknown, 07/11/17) codeine (Verified Allergy, Unknown, 07/11/17) diphenoxylate (Verified Allergy, Unknown, 07/11/17) meperidine (Verified Allergy, Unknown, 07/11/17) Home Medications Budesonide/Formoterol Fumarate 10.2 Gm Hfa.aer.ad, 2 PUFF IH BID, (Reported) Cephalexin 500 Mg Tablet, 500 MG PO BID Prescribed by: DOUG KAUR on 07/11/17 1525 Hydrocodone Bit/Acetaminophen 1 Each Tablet, 1-2 EACH PO Q6H PRN for BREAKTHROUGH PAIN Prescribed by: DOUG KAUR on 07/11/17 1525 Ondansetron 8 Mg Tab.rapdis, 8 MG PO Q6H PRN for NAUSEA/VOMITING-1ST LINE Prescribed by: SHANICE AGUIAR on 07/14/17 1223 Sucralfate 1 Gm Tablet, 1 GM PO QID Prescribed by: DOUG KAUR on 07/11/17 1525 Patient Home Medication List Home Medication List Reviewed: Yes Review of Systems Review of Systems Constitutional: no symptoms reported EENTM: No Symptoms Reported Respiratory: No Symptoms Reported Cardiovascular: No Symptoms Reported Gastrointestinal: See HPI Genitourinary: No Symptoms Reported Musculoskeletal: no symptoms reported Skin: no symptoms reported Psychiatric/Neurological: No Symptoms Reported Endocrine: No Symptoms Reported Hematologic/Lymphatic: No Symptoms Reported Past Rgwpglz-Wdohgv-Xwsxqs Hx Patient Social History Alcohol Use: Occasionally Uses Number of Drinks Today: AA Alcohol Beverage of Choice: Beer Recreational Drug Use: No Smoking Status: Current Everyday Smoker Type Used: Cigarettes 2nd Hand Smoke Exposure: Yes Recent Foreign Travel: No Contact w/Someone Who Travel: No Recent Infectious Disease Expo: No Recent Hopitalizations: No Physical Abuse: No Sexual Abuse: No Seasonal Allergies Seasonal Allergies: No Past Medical History Surgeries: Yes (hemrroid,DNC,CERCLAGE) Abdominal (adhesiolysis), Section Respiratory: Yes COPD, Emphysema Currently Using CPAP: No Cardiac: No Neurological: No Genitourinary: No Gastrointestinal: Yes Colitis, Hiatal Hernia Musculoskeletal: No Endocrine: No HEENT: No Cancer: No Psychosocial: No Integumentary: No Blood Disorders: No Physical Exam Vital Signs Vital Signs - First Documented 03/24/18 03/25/18 23:55 00:58 Temp 98.4 Pulse 87 Resp 18 B/P (MAP) 137/83 (101) Pulse Ox 95 O2 Delivery Room Air O2 Flow Rate 2.00 Capillary Refill : Less Than 3 Seconds Height/Weight/BMI Height: 5'2.00" Weight: 137lbs. oz. 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4-10.4 FL Neutrophils (%) (Auto) 76 H 42-75 % Lymphocytes (%) (Auto) 15 12-44 % Monocytes (%) (Auto) 7 0-12 % Eosinophils (%) (Auto) 2 0-10 % Basophils (%) (Auto) 1 0-10 % Neutrophils # (Auto) 10.4 H 1.8-7.8 X 10^3 Lymphocytes # (Auto) 2.0 1.0-4.0 X 10^3 Monocytes # (Auto) 0.9 0.0-1.0 X 10^3 Eosinophils # (Auto) 0.2 0.0-0.3 10^3/uL Basophils # (Auto) 0.1 0.0-0.1 10^3/uL Sodium Level 139 135-145 MMOL/L Potassium Level 3.8 3.6-5.0 MMOL/L Chloride Level 104 98-107 MMOL/L Carbon Dioxide Level 22 21-32 MMOL/L Anion Gap 13 5-14 MMOL/L Blood Urea Nitrogen 15 7-18 MG/DL Creatinine 1.02 0.60-1.30 MG/DL Estimat Glomerular Filtration Rate 53 BUN/Creatinine Ratio 15 Glucose Level 137 H 70-105 MG/DL Calcium Level 10.3 H 8.5-10.1 MG/DL Corrected Calcium 10.1 8.5-10.1 MG/DL Magnesium Level 2.3 1.8-2.4 MG/DL Total Bilirubin 0.9 0.1-1.0 MG/DL Aspartate Amino Transf (AST/SGOT) 19 5-34 U/L Alanine Aminotransferase (ALT/SGPT) 17 0-55 U/L Alkaline Phosphatase 71 40-136 U/L Total Protein 7.5 6.4-8.2 GM/DL Albumin 4.3 3.2-4.5 GM/DL Lipase 29 8-78 U/L Urine Color YELLOW Urine Clarity CLEAR Urine pH 5 5-9 Urine Specific [place] 1.030 H 1.016-1.022 Urine Protein 2+ H NEGATIVE Urine Glucose (UA) NEGATIVE NEGATIVE Urine Ketones 1+ H NEGATIVE Urine Nitrite NEGATIVE NEGATIVE Urine Bilirubin 1+ H NEGATIVE Urine Urobilinogen 1 NORMAL MG/DL Urine Leukocyte Esterase 2+ H NEGATIVE Urine RBC (Auto) 1+ H NEGATIVE Urine RBC NONE /HPF Urine WBC 0-2 /HPF Urine Squamous Epithelial Cells 0-2 /HPF Urine Crystals NONE /LPF Urine Bacteria MODERATE H /HPF Urine Casts NONE /LPF Urine Mucus NEGATIVE /LPF Urine Culture Indicated YES My Orders Orders - HELLEN ANDERSON MD Saline Lock/Iv-Start (03/25/18 00:06) Cbc With Automated Diff (03/25/18 00:06) Comprehensive Metabolic Panel (03/25/18 00:06) Lipase (03/25/18 00:06) Magnesium (03/25/18 00:06) Ua Culture If Indicated (03/25/18 00:06) Saline Lock/Iv-Start (03/25/18 00:06) Ns Iv 1000 Ml (Sodium Chloride 0.9%) (03/25/18 00:06) Ondansetron Injection (Zofran Injectio (03/25/18 00:15) Ranitidine Injection (Zantac Injection) (03/25/18 00:15) Lidocaine 2% Viscous 15 Ml (Xylocaine Vi (03/25/18 00:15) Antacid Suspension (Mylanta Suspension (03/25/18 00:15) Ondansetron Injection (Zofran Injectio (03/25/18 00:06) Fentanyl Injection (Sublimaze Injection (03/25/18 01:00) Promethazine Injection (Phenergan Injec (03/25/18 01:00) Urine Culture (03/25/18 00:44) Ct Abdomen/Pelvis W (03/25/18 01:04) Medications Given in ED Current Medications Medications Dose Ordered Sig/Aubrie Route Start Time Stop Time Status Last Admin Dose Admin Fentanyl Citrate 50 mcg ONCE ONCE IVP 03/25/18 01:00 03/25/18 01:01 DC 03/25/18 00:51 50 MCG Ondansetron HCl 4 mg ONCE ONCE IVP 03/25/18 00:15 03/25/18 00:16 DC 03/25/18 00:10 4 MG Promethazine HCl 25 mg ONCE ONCE IVP 03/25/18 01:00 03/25/18 01:01 DC 03/25/18 00:51 25 MG Ranitidine HCl 50 mg/Sodium Chloride 52 ml @ 156 mls/hr ONCE ONCE IV 03/25/18 00:15 03/25/18 00:34 DC 03/25/18 00:23 156 MLS/HR Sodium Chloride 1,000 ml @ 0 mls/hr Q0M ONCE IV 03/25/18 00:06 03/25/18 00:09 DC 03/25/18 00:22 0 MLS/HR Vital Signs/I&O 03/24/18 03/25/18 23:55 00:58 Temp 98.4 Pulse 87 Resp 18 B/P (MAP) 137/83 (101) Pulse Ox 95 96 O2 Delivery Room Air Nasal Cannula O2 Flow Rate 2.00 03/25/18 00:00 Intake Total 0 ml Balance 0 ml Blood Pressure Mean: 101 Progress Progress Note : Progress Note Patient was given an additional 4 mg of Zofran. She then wanted to try a GI cocktail. However, her vomiting became refractory and she could not drink the GI cocktail. She was further treated with Phenergan. Fentanyl was used for pain control. Ranitidine was given for an antacid therapy. Patient was found to have a leukocytosis in the context of continued abdominal pain and refractory nausea and vomiting. CT scan was pursued. She was found to have a high-grade small bowel obstruction on CT imaging. She was given Rocephin for suspected urinary tract infection. Dr. Montero was consulted for surgical evaluation. Diagnostic Imaging Diagonstic Imaging: CT Plain Films/CT/US/NM/MRI: abdomen, pelvis Comments CT abdomen and pelvis viewed by me and stat rad report reviewed. There is a high-grade small bowel obstruction with probable transition near the terminal ileum. Appendix is normal. Elevation of the right hemidiaphragm. Large hiatal hernia. Marked sigmoid diverticulosis without diverticulitis. Trace fluid in the right subdiaphragmatic space in the pelvic cul-de-sac. Departure Communication (Admissions) Time/Spoke to Admitting Phy: 02:56 Dr. Chris Haji Time/Spoke to Consulting Phy: 02:55 Dr. Montero Impression Primary Impression: Small bowel obstruction Additional Impressions: Nausea and vomiting Qualified Codes: R11.2 - Nausea with vomiting, unspecified Abdominal pain Qualified Codes: R10.84 - Generalized abdominal pain Urinary tract infection Qualified Codes: N39.0 - Urinary tract infection, site not specified Hiatal hernia Disposition: ADMITTED INPATIENT Condition: Improved Admissions Decision to Admit Reason: Admit from ER (General) Decision to Admit/Date: Mar 25, 2018 Time/Decision to Admit Time: 02:50 Departure-Patient Inst. Referrals: CHRIS HAJI MD (PCP/Family) Primary Care Physician HELLEN ANDERSON MD Mar 25, 2018 02:46
[2018-03-25] MEDS ORDERED: cefTRIAXone FOR IV USE 1,000 MG in NS (IVPB) 50 ML IV ONE (03:15)
[2018-03-25] MEDS ORDERED: D5 1/2 NS W/KCL 20 MEQ/L 1,000 ML IV ONE (04:36)
[2018-03-25] MEDS: D5 1/2 NS W/KCL 20 MEQ/L 1,000 ML IV SCH ×3 (04:36→23:47)
[2018-03-25] MEDS ORDERED: fentaNYL INJECTION 100 MCG/2 ML AMP IV PRN (05:15)
[2018-03-25] MEDS ORDERED: ONDANSETRON 4 MG/2 ML (SDV) Z0FRAN IV PRN (05:15)
[2018-03-25] MEDS ORDERED: PROMETHAZINE INJ 25 MG/ML (PHENERGAN) AMP IV PRN (05:15)
--- NOTE | 2018-03-25 06:47 | Diagnostic Imaging Report ---
PROCEDURE: CT abdomen and pelvis with contrast. TECHNIQUE: Multiple contiguous axial images were obtained through the abdomen and pelvis after administration of intravenous contrast. INDICATION: Abdominal pain COMPARISON STUDY: CT scan from January the . FINDINGS: Large hiatal hernia is present. There is marked elevation of the right diaphragm. No infiltrates are present in the lung bases. There is a small right subdiaphragmatic effusion. The liver, gallbladder, spleen, pancreas, adrenal glands and kidneys appear normal. Small bowel loops are markedly dilated fluid-filled. Distal small bowel is decompressed. Small bowel loops measure up to 4 cm in size. No mass is present. The appendix appears normal. Small amount of ascites is present. The uterus is atrophied. Urinary bladder appears normal. A few colonic diverticula are present. IMPRESSION: 1. There is a distal small bowel obstruction. 2. Diverticulosis without inflammation. 3. There is a right subdiaphragmatic effusion and ascites in the pelvis. 4. There is a large hiatal hernia. 5. The right diaphragm is markedly elevated with questionable diaphragmatic paralysis. Findings agree with [facility] report. Dictated by: Dictated on workstation # [id number]
--- NOTE | 2018-03-25 07:05 | History & Physical ---
History of Present Illness History of Present Illness Reason for visit/HPI 73 yo F with history of diaphragmatic hernia, COPD, GERD admitted for a small bowel obstruction. She reports onset was last evening with vomiting and everytime she vomited she would have diarrhea. Of note she had lysis of adhesions surgery with Dr. Guy at [place] about 1 month ago. Pt has had loose bowel movements in the last 24hours. Abdominal pain and nausea did not go away with zofran in the ER. CT scan was done demonstrating the small bowel obstruction. Pt was admitted for further evaluation. Pt was given rocephin in ER to cover for possible UTI. Culture was sent. Dr. Montero was consulted for the admitting diagnosis of small bowel obstruction. Pt this AM reports she is doing much better; nausea nearly gone and abdominal pain significantly improved. She is disappointed though because the lysis surgery was suppose to resolve her GI issues along with Linzess. This is her first bout of SBO but wonders if all the other abdominal issues she has been seeing Dr. Patel about were also SBO. No history of Diabetes Mellitus. No fevers. Date of Admission Mar 25, 2018 at 03:04 Date Seen by Provider: Mar 25, 2018 Time Seen by Provider: 08:05 I consulted on this patient on 03/25/18 07:00 Attending Physician Chris Haji MD Admitting Physician Chris Haji MD Consult Dr. Montero Allergies and Home Medications Allergies Coded Allergies: atropine (Verified Allergy, Unknown, 07/11/17) codeine (Verified Allergy, Unknown, 07/11/17) diphenoxylate (Verified Allergy, Unknown, 07/11/17) meperidine (Verified Allergy, Unknown, 07/11/17) Home Medications Budesonide/Formoterol Fumarate 10.2 Gm Hfa.aer.ad, 2 PUFF IH BID, (Reported) Cephalexin 500 Mg Tablet, 500 MG PO BID Prescribed by: DOUG KAUR on 07/11/17 1525 Hydrocodone Bit/Acetaminophen 1 Each Tablet, 1-2 EACH PO Q6H PRN for BREAKTHROUGH PAIN Prescribed by: DOUG KAUR on 07/11/17 1525 Ondansetron 8 Mg Tab.rapdis, 8 MG PO Q6H PRN for NAUSEA/VOMITING-1ST LINE Prescribed by: SHANICE AGUIAR on 07/14/17 1223 Sucralfate 1 Gm Tablet, 1 GM PO QID Prescribed by: DOUG KAUR on 07/11/17 1525 Patient Home Medication List Home Medication List Reviewed: Yes Past Aturyhx-Spekxl-Gpurau Hx Patient Social History Alcohol Use: Occasionally Uses Number of Drinks Today: AA Alcohol Beverage of Choice: Beer Recreational Drug Use: No Smoking Status: Current Everyday Smoker Type Used: Cigarettes 2nd Hand Smoke Exposure: Yes Physical Abuse Screen: No Sexual Abuse: No Recent Foreign Travel: No Contact w/other who traveled: No Recent Hopitalizations: No Recent Infectious Disease Expo: No Seasonal Allergies Seasonal Allergies: No Surgeries Yes (hemrroid,DNC,CERCLAGE) Abdominal (adhesiolysis), Section Respiratory Yes Currently Using CPAP: No Cardiovascular No Neurological No Genitourinary No Gastrointestinal Yes Colitis, Hiatal Hernia Musculoskeletal No Endocrine History of Endocrine Disorders: No HEENT History of HEENT Disorders: No Cancer No Psychosocial History of Psychiatric Problem: No Integumentary History of Skin or Integumenta: No Blood Transfusions History of Blood Disorders: No Family Medical History Family Hx: Patient reports no known family medical history. Review of Systems Review of Systems General: No Chills, No Night Sweats HEENT: No Head Aches, No Visual Changes Pulmonary: No Dyspnea, No Cough Cardiovascular: No: Chest Pain, Palpitations, Orthopnea Gastrointestinal: Nausea (much improved), Vomiting, Abdominal Pain, Diarrhea Genitourinary: No Dysuria, No Frequency Musculoskeletal: No: neck pain, shoulder pain Neurological: Weakness; No: Confusion Physical Exam Vital Signs Vital Signs - First Documented 03/24/18 03/25/18 23:55 00:58 Temp 98.4 Pulse 87 Resp 18 B/P (MAP) 137/83 (101) Pulse Ox 95 O2 Delivery Room Air O2 Flow Rate 2.00 Capillary Refill : Less Than 3 Seconds Height, Weight, BMI Height: 5'2.00" Weight: 137lbs. 6.0oz. 62.779012bl; 25.1 BMI Method:Stated General Appearance: WD/WN, Mild Distress HEENT: PERRL/EOMI Neck: Full Range of Motion, Non Tender, Supple Respiratory: Chest Non Tender, Lungs Clear, Normal Breath Sounds, No Accessory Muscle Use, No Respiratory Distress, Decreased Breath Sounds (right lower base- ) Cardiovascular: Regular Rate, Rhythm, No Edema Gastrointestinal: Non Tender, Soft, Other (a few bowel sounds- no tinkling sound) Rectal: Deferred Back: No CVA Tenderness, No Vertebral Tenderness Extremity: Non Tender, No Calf Tenderness Neurologic/Psychiatric: Alert, Oriented x3, Normal Mood/Affect Skin: Warm/Dry Lymphatic: No Adenopathy Assessment/Plan Assessment/Plan Admission Dx Small bowel obstruction Admission Status: Inpatient Order (span 2 midnights) Reason for Inpatient Admission: Patient is vomiting repeatedly and was found to have a small bowel obstruction that will need close monitoring over the next few days (will span 2 midnights) Assessment and Plan 73 yo F Small bowel obstruction- Dr. Montero consulted, IVF, fentanyl for pain control prn, ambulation, bowel rest R11.2 nausea/vomiting- zofran, phenergan prn (J44.9) Chronic obstructive pulmonary disease- continue home inhalers. (K21.9) Gastro-esophageal reflux disease- (K44.9) Diaphragmatic hernia- aware of this, noted again on CT Dispo: IVFs, bowel rest, pain management- Surgery to see patient. Of note patient would like to be transferred to [place] for Dr. Guy and Veto to evaluate her if surgery becomes more likely. -Pt is improved- soft abdomen, bowel sounds noted- NTTP- Pt would like some coffee as she reports it usually does the trick of opening things up. Will await urine culture to before continuing rocephin for UTI as UA likely was not a clean catch. Problems: (1) Small bowel obstruction (2) Abdominal pain Qualifiers: Qualified Codes: R10.84 - Generalized abdominal pain (3) Nausea and vomiting Qualifiers: Qualified Codes: R11.2 - Nausea with vomiting, unspecified (4) Hiatal hernia Clinical Quality Measures DVT/VTE Risk/Contraindication: Risk Factor Score Per Nursin RFS Level Per Nursing on Admit: 4+=Very High CHRIS HAJI MD Mar 25, 2018 07:05
[2018-03-25 08:00] VITALS: BP 114/61
[2018-03-25] MEDS: PANTOPRAZOLE 40 MG (PROTONIX) VIAL IV SCH (09:08)
[2018-03-25] MEDS ORDERED: PANT40TA3 PO (09:29)
[2018-03-25] MEDS ORDERED: LINA145C PO (09:29)
[2018-03-25] MEDS ORDERED: RT-ADVAIR HFA 115/21 MCG PER PUFF IH SCH (10:47)
[2018-03-25 12:00] VITALS: BP 102/62
--- NOTE | 2018-03-25 12:14 | Consultation ---
History of Present Illness History of Present Illness Patient Consulted On(alden/time) 03/25/18 12:04 Date Seen by Provider: Mar 25, 2018 Time Seen by Provider: 10:50 History of Present Illness Surgery was consulted for management of SBO Per Dr. Arambula: 73 yo F with history of diaphragmatic hernia, COPD, GERD admitted for a small bowel obstruction. She reports onset was last evening with vomiting and everytime she vomited she would have diarrhea. Of note she had lysis of adhesions surgery with Dr. Guy at [facility] about 1 month ago. Pt has had loose bowel movements in the last 24hours. Abdominal pain and nausea did not go away with zofran in the ER. CT scan was done demonstrating the small bowel obstruction. Pt was admitted for further evaluation. Pt was given rocephin in ER to cover for possible UTI. Culture was sent. I went to see patient w/ Dr. Boss. She reports she is feeling much better this morning, has not vomited since being in the ER last night and her pain has improved. The patient reports she first started having symptoms around of 2016 which consisted of abdominal pain and when the pain was really bad, vomiting. She also experienced alternating diarrhea/constipation. She denies blood in her vomitus or stool. She ultimately had surgery one month ago for lysis of adhesions. Her symptoms resolved until yesterday when she had "the exact same" symptoms as before her surgery. She vomited several times and had several loose stools yesterday. She has not had a BM yet today. Truong Boss DO I did the exam with Moriah and the interview, he put all information into the note. Allergies and Home Medications Allergies Coded Allergies: atropine (Verified Allergy, Unknown, 07/11/17) codeine (Verified Allergy, Unknown, 07/11/17) diphenoxylate (Verified Allergy, Unknown, 07/11/17) meperidine (Verified Allergy, Unknown, 07/11/17) Home Medications Budesonide/Formoterol Fumarate 10.2 Gm Hfa.aer.ad, 2 PUFF IH BID, (Reported) Linaclotide 145 Mcg Capsule, 145 MCG PO DAILY, (Reported) Pantoprazole Sodium 40 Mg Tablet.dr, 40 MG PO DAILY, (Reported) Patient Home Medication List Home Medication List Reviewed: Yes Past Svlrtns-Hutdan-Eazxiz Hx Patient Social History Alcohol Use: Occasionally Uses Number of Drinks Today: AA Recreational Drug Use: No Smoking Status: Current Everyday Smoker Type Used: Cigarettes 2nd Hand Smoke Exposure: Yes Recent Foreign Travel: No Contact w/Someone Who Travel: No Recent Infectious Disease Expo: No Recent Hopitalizations: No Physical Abuse Screen: No Sexual Abuse: No Seasonal Allergies Seasonal Allergies: No Surgeries History of Surgeries: Yes (hemrroid,DNC,CERCLAGE) Surgeries: Abdominal (adhesiolysis), Section Respiratory History of Respiratory Disorde: Yes Respiratory Disorders: COPD, Emphysema Cardiovascular History of Cardiac Disorders: No Neurological History of Neurological Disord: No Reproductive System : No Female Reproductive Disorders: Denies Genitourinary History of Genitourinary Disor: No Gastrointestinal History of Gastrointestinal Di: Yes Gastrointestinal Disorders: Colitis, Obstructive Bowel, Hiatal Hernia Musculoskeletal History of Musculoskeletal Dis: No Endocrine History of Endocrine Disorders: No HEENT History of HEENT Disorders: No Cancer History of Cancer: No Psychosocial History of Psychiatric Problem: No Integumentary History of Skin or Integumenta: No Blood Transfusions History of Blood Disorders: No Family Medical History Significant Family History: Heart Disease Family Medial History: Cardiovascular disease 19 FATHER Review of Systems-General Constitutional: No chills, No diaphoresis, No fever; weight gain (states sometimes she'll gain 8-9 pounds in a day when she's constipated) EENTM: No eye pain, No vision loss Respiratory: cough; No hemoptysis Cardiovascular: No chest pain, No edema, No Hx of Intervention Gastrointestinal: abdominal pain, constipation, diarrhea; No hematemesis, No melena; nausea, vomiting Genitourinary: No dysuria, No hematuria : No Musculoskeletal: No back pain, No muscle pain Skin: No change in color, No rash Psychiatric/Neurological: Denies Anxiety, Denies Depressed, Denies Headache, Denies Paresthesia Other No bruising or bleeding. Physical Exam-General Problems Physical Exam Vital Signs Vital Signs - First Documented 03/24/18 03/25/18 23:55 00:58 Temp 98.4 Pulse 87 Resp 18 B/P (MAP) 137/83 (101) Pulse Ox 95 O2 Delivery Room Air O2 Flow Rate 2.00 Capillary Refill : Less Than 3 Seconds General Appearance: WD/WN, no apparent distress Eyes: Bilateral Eye PERRL, Bilateral Eye EOMI HEENT: No scleral icterus (R), No scleral icterus (L), No photophobia Neck: full range of motion, supple; No thyromegaly Respiratory: no respiratory distress, no accessory muscle use, crackles ( diffusely) Cardiovascular: regular rate, rhythm, no edema, no gallop, no JVD, no murmur Gastrointestinal: normal bowel sounds, non tender, soft, no organomegaly, no pulsatile mass; No distended Rectal: deferred Back: no vertebral tenderness; No decreased range of motion Extremities: normal range of motion, non-tender, no pedal edema, no calf tenderness Neurologic/Psychiatric: router setter II-XII nml as tested, no motor/sensory deficits, alert, normal mood/affect, oriented x 3 Skin: normal color, warm/dry Lymphatic: no adenopathy (cervical, axillary, inguinal) Data Review Labs Laboratory Tests 03/24/18 23:58: White Blood Count 13.6H, Red Blood Count 6.52H, Hemoglobin 17.0H, Hematocrit 52 , Mean Corpuscular Volume 79L, Mean Corpuscular Hemoglobin 26, Mean Corpuscular Hemoglobin Concent 33, Red Cell Distribution Width 19.9H, Platelet Count 710H, Mean Platelet Volume 11.1H, Neutrophils (%) (Auto) 76H, Lymphocytes (%) (Auto) 15, Monocytes (%) (Auto) 7, Eosinophils (%) (Auto) 2, Basophils (%) (Auto) 1, Neutrophils # (Auto) 10.4H, Lymphocytes # (Auto) 2.0, Monocytes # (Auto) 0.9, Eosinophils # (Auto) 0.2, Basophils # (Auto) 0.1, Sodium Level 139, Potassium Level 3.8, Chloride Level 104, Carbon Dioxide Level 22, Anion Gap 13, Blood Urea Nitrogen 15, Creatinine 1.02, Estimat Glomerular Filtration Rate 53, BUN/ Creatinine Ratio 15, Glucose Level 137H, Calcium Level 10.3H, Corrected Calcium 10.1, Magnesium Level 2.3, Total Bilirubin 0.9, Aspartate Amino Transf (AST/SGOT ) 19, Alanine Aminotransferase (ALT/SGPT) 17, Alkaline Phosphatase 71, Total Protein 7.5, Albumin 4.3, Lipase 29 03/25/18 00:44: Urine Color YELLOW, Urine Clarity CLEAR, Urine pH 5, Urine Specific [place] 1.030H, Urine Protein 2+H, Urine Glucose (UA) NEGATIVE, Urine Ketones 1+H, Urine Nitrite NEGATIVE, Urine Bilirubin 1+H, Urine Urobilinogen 1, Urine Leukocyte Esterase 2+H, Urine RBC (Auto) 1+H, Urine RBC NONE, Urine WBC 0-2, Urine Squamous Epithelial Cells 0-2, Urine Crystals NONE, Urine Bacteria MODERATEH, Urine Casts NONE, Urine Mucus NEGATIVE, Urine Culture Indicated YES Radiology Date of Exam: 03/25/18 CT ABDOMEN/PELVIS W PROCEDURE: CT abdomen and pelvis with contrast. TECHNIQUE: Multiple contiguous axial images were obtained through the abdomen and pelvis after administration of intravenous contrast. INDICATION: Abdominal pain COMPARISON STUDY: CT scan from January the . FINDINGS: Large hiatal hernia is present. There is marked elevation of the right diaphragm. No infiltrates are present in the lung bases. There is a small right subdiaphragmatic effusion. The liver, gallbladder, spleen, pancreas, adrenal glands and kidneys appear normal. Small bowel loops are markedly dilated fluid-filled. Distal small bowel is decompressed. Small bowel loops measure up to 4 cm in size. No mass is present. The appendix appears normal. Small amount of ascites is present. The uterus is atrophied. Urinary bladder appears normal. A few colonic diverticula are present. IMPRESSION: 1. There is a distal small bowel obstruction. 2. Diverticulosis without inflammation. 3. There is a right subdiaphragmatic effusion and ascites in the pelvis. 4. There is a large hiatal hernia. 5. The right diaphragm is markedly elevated with questionable diaphragmatic paralysis. Findings agree with [facility] report. Dictated by: Dictated on workstation # [id number] Dict: 03/25/1829 Trans: 03/25/18 0951 Interpreted by: SHAYLA GOLDBERG MD Electronically signed by: SHAYLA GOLDBERG MD 03/25/18 0951 Assessment/Plan Assessment/Plan Assessment/Plan Partial small bowel obstruction R11.2 nausea/vomiting- zofran, phenergan prn (J44.9) Chronic obstructive pulmonary disease- continue home inhalers. (K21.9) Gastro-esophageal reflux disease- (K44.9) Diaphragmatic hernia- aware of this, noted again on CT Plan: Continue pt on NPO. If she continues to be asymptomatic, she can have ice chips and some coffee today. If she remains asymptomatic this weekend we can consider D/C home. If she has more pain or n/v then we will likely perform a small bowel follow through to r/o a complete SBO. Truong Boss DO I did the physical exam on this pt and directed Moriah on the assesment and plan. I agree with all information put into this note. Clinical Quality Measures DVT/VTE Risk/Contraindication: Risk Factor Score Per Nursin RFS Level Per Nursing on Admit: 4+=Very High MORIAH ELLISON MEDICAL STUDENT Mar 25, 2018 12:14 TRUONG BOSS DO Mar 25, 2018 12:51
[2018-03-25 15:30] VITALS: BP 119/67
[2018-03-25] MEDS: RT-ADVAIR HFA 115/21 MCG PER PUFF IH SCH ×2 (15:35→19:38)
[2018-03-25 20:00] VITALS: BP 125/60
[2018-03-26] VITALS: BP 111/70
[2018-03-26 04:00] VITALS: BP 129/69
[2018-03-26] MEDS: D5 1/2 NS W/KCL 20 MEQ/L 1,000 ML IV SCH ×3 (06:49→18:16)
[2018-03-26 08:00] VITALS: BP 126/70
[2018-03-26] MEDS: PANTOPRAZOLE 40 MG (PROTONIX) VIAL IV SCH (08:30)
--- NOTE | 2018-03-26 10:31 | Progress Note-Hospitalist ---
SMILEY AGUIAR MEDICAL STUDENT 03/26/18 1031: Subjective HPI/CC On Admission Date Seen by Provider: Mar 26, 2018 Time Seen by Provider: 09:00 Abdominal pain Subjective/Events-last exam No acute events overnight. Overall, feeling worse today due to light-headedness, headache, apathy. Pt states abdominal pain is essentially gone. Passing flatus, but no BM since afternoon. No problems with urination. No questions or concerns at this time. Focused Exam Respiratory: Lungs Clear, Normal Breath Sounds Cardiovascular: Regular Rate, Rhythm, No Edema Skin: normal color, warm/dry Objective Exam Vital Signs Vital Signs Date Time Temp Pulse Resp B/P (MAP) Pulse Ox O2 Delivery O2 Flow Rate FiO2 03/26/18 08:00 98.2 52 20 126/70 (88) 93 Room Air 03/25/18 08:00 2.00 Capillary Refill : Less Than 3 Seconds Gastrointestinal: Normal Bowel Sounds, Distended, Tenderness (In RUQ) Results/Procedures Lab Patient resulted labs reviewed. Assessment/Plan Assessment and Plan Assess & Plan/Chief Complaint 73 year old F with history of diaphragmatic hernia, COPD, GERD, admitted yesterday for partial SBO found on CT one month after having lysis of abdominal adhesions. SBO -NPO -Surgery consulted, has recommended small bowel follow through if worsening pain Potential UTI -Received Rocephin in ED -Urine culture pending. Dispo: Likely home tomorrow if abdominal pain still improved, passing gas and she has a BM. Clinical Quality Measures DVT/VTE Risk/Contraindication: Risk Factor Score Per Nursin RFS Level Per Nursing on Admit: 4+=Very High FERNANDO VERA DO 03/26/18 1451: Subjective HPI/CC On Admission Time Seen by Provider: 11:00 Subjective/Events-last exam Patient doing well UA abnl but UCx contaminant so will DC Rocephin Flatus+ Pain is controlled Review of Systems General: Fatigue Gastrointestinal: Abdominal Pain Objective Exam General Appearance: No Apparent Distress, WD/WN, Chronically ill Respiratory: Chest Non Tender, Lungs Clear, Normal Breath Sounds, No Accessory Muscle Use, No Respiratory Distress Cardiovascular: Regular Rate, Rhythm, No Edema, No Gallop, No JVD, No Murmur, Normal Peripheral Pulses Gastrointestinal: Normal Bowel Sounds, No Organomegaly, No Pulsatile Mass, Non Tender, Soft Neurologic/Psychiatric: Alert, Oriented x3, No Motor/Sensory Deficits, Normal Mood/Affect Skin: Normal Color, Warm/Dry Lymphatic: No Adenopathy Assessment/Plan Assessment and Plan Assess & Plan/Chief Complaint DC Abx Monitor for bowel function return Dispo soon Diagnosis/Problems Diagnosis/Problems (1) Small bowel obstruction Status: Acute (2) Abdominal pain Status: Acute Qualifiers: Abdominal location: generalized Qualified Codes: R10.84 - Generalized abdominal pain (3) Nausea and vomiting Status: Acute Qualifiers: Vomiting type: unspecified Vomiting Intractability: non-intractable Qualified Codes: R11.2 - Nausea with vomiting, unspecified SMILEY AGUIAR MEDICAL STUDENT Mar 26, 2018 10:31 FERNANDO VERA DO Mar 26, 2018 14:51
[2018-03-26] MEDS: RT-ADVAIR HFA 115/21 MCG PER PUFF IH SCH ×2 (11:23→19:40)
--- NOTE | 2018-03-26 11:46 | Progress Note (SOAP) ---
Subjective Date Seen by Provider: Mar 26, 2018 Time Seen by Provider: 10:30 Subjective/Events-last exam passed flatus. No abdominal pain. No nausea. Reports feeling better. Review of Systems General: No Chills, No Night Sweats, No Fatigue, No Malaise HEENT: No Head Aches, No Eye Pain, No Ear Pain, No Dysphasia, No Sinus Congestion, No Post Nasal Drip, No Sore Throat Pulmonary: No Dyspnea, No Cough, No Pleuritic Chest Pain Cardiovascular: No: Chest Pain, Palpitations, Orthopnea, Paroxysmal Noc. Dyspnea, Edema, Lt Headedness Gastrointestinal: No: Nausea, Vomiting, Abdominal Pain, Diarrhea, Constipation , Melena, Hematochezia Genitourinary: No Dysuria, No Frequency, No Incontinence, No Hematuria, No Retention Musculoskeletal: No: other, neck pain, shoulder pain, arm pain, back pain, hand pain, leg pain, foot pain Neurological: No: Weakness, Numbness, Incoordination, Change in speech, Confusion, Seizures, Other Objective Exam Vital Signs Date Time Temp Pulse Resp B/P (MAP) Pulse Ox O2 Delivery O2 Flow Rate FiO2 03/26/18 08:00 Room Air 03/26/18 08:00 98.2 52 20 126/70 (88) 93 Room Air 03/26/18 04:00 97.3 51 20 129/69 (89) 94 Room Air 03/26/18 00:00 96.9 54 20 111/70 (84) 93 Room Air 03/25/18 20:00 98.2 75 24 125/60 (81) 95 Room Air 03/25/18 19:41 94 Room Air 03/25/18 19:40 Room Air 03/25/18 15:30 97.0 67 16 119/67 (84) 93 Room Air 03/25/18 12:00 99.0 70 20 102/62 (75) 94 Room Air I & O 03/26/18 07:00 Intake Total 1000 ml Balance 1000 ml Capillary Refill : Less Than 3 Seconds General Appearance: No Apparent Distress Respiratory: Lungs Clear Cardiovascular: Regular Rate, Rhythm Gastrointestinal: non tender, soft, other Neurologic/Psychiatric: Alert, Oriented x3 Other comments laparoscopic incisions with no cellulitis. Results Lab Microbiology 03/25/18 Urine Culture - Final, Complete See Comments Assessment/Plan Assessment/Plan Assess & Plan/Chief Complaint sedated with resolving postoperative ileus. Will advance diet. Clinical Quality Measures DVT/VTE Risk/Contraindication: Risk Factor Score Per Nursin RFS Level Per Nursing on Admit: 4+=Very High LUZ MARINA GONZALES MD Mar 26, 2018 11:46
[2018-03-26 16:45] VITALS: BP 131/67
[2018-03-26 20:25] VITALS: BP 113/59
[2018-03-27] VITALS: BP 124/58
[2018-03-27] MEDS: D5 1/2 NS W/KCL 20 MEQ/L 1,000 ML IV SCH (04:09)
[2018-03-27 08:00] VITALS: BP 121/72
[2018-03-27] MEDS: PANTOPRAZOLE 40 MG (PROTONIX) VIAL IV SCH (09:07)
--- NOTE | 2018-03-27 09:54 | Progress Note-Hospitalist ---
SMILEY AGUIAR MEDICAL STUDENT 03/27/18 0954: Subjective HPI/CC On Admission Date Seen by Provider: Mar 27, 2018 Time Seen by Provider: 08:46 CC: Abdominal pain HPI: Presented to ED 1 month after surgery for lysis of adhesions found to have partial SBO. Subjective/Events-last exam Pt had no acute events overnight. Tolerating a clear liquid diet. Passed more gas yesterday than the day prior, still no BM. Has been up and walking regularly. Pain well controlled - states she has occasional pain but not constant or severe. Focused Exam Respiratory: Chest Non Tender, Lungs Clear, Normal Breath Sounds Cardiovascular: Regular Rate, Rhythm, No Edema Skin: normal color, warm/dry Objective Exam Vital Signs Vital Signs Date Time Temp Pulse Resp B/P (MAP) Pulse Ox O2 Delivery O2 Flow Rate FiO2 03/27/18 08:16 Room Air 03/27/18 08:00 98.9 52 20 121/72 (88) 94 03/25/18 08:00 2.00 Capillary Refill : Less Than 3 Seconds Gastrointestinal: Normal Bowel Sounds, Soft, Distended Results/Procedures Lab Patient resulted labs reviewed. Assessment/Plan Assessment and Plan Assess & Plan/Chief Complaint 73 year old F with history of diaphragmatic hernia, COPD, GERD, admitted yesterday for partial SBO found on CT one month after having lysis of abdominal adhesions. SBO -Passing more flatus, will continue to monitor -Tolerating clear liquid diet -Surgery consulted, has recommended small bowel follow through if worsening pain Potential UTI -Received Rocephin in ED -Urine cultureshowed likely contamination. Dispo: Home after having BM. Clinical Quality Measures DVT/VTE Risk/Contraindication: Risk Factor Score Per Nursin RFS Level Per Nursing on Admit: 4+=Very High FERNANDO VERA DO 03/27/18 1221: Subjective HPI/CC On Admission Time Seen by Provider: 11:00 Subjective/Events-last exam Changing ICS to home Symbicort No BM yet CLD tolerated Ambulating well Review of Systems General: Fatigue Pulmonary: Cough Objective Exam General Appearance: No Apparent Distress, WD/WN Respiratory: Chest Non Tender, Lungs Clear, Normal Breath Sounds, No Accessory Muscle Use, No Respiratory Distress, Other (coarse upper airway cough lungs are clear) Cardiovascular: Regular Rate, Rhythm, No Edema, No Gallop, No JVD, No Murmur, Normal Peripheral Pulses Gastrointestinal: Normal Bowel Sounds, No Organomegaly, No Pulsatile Mass, Non Tender, Soft Skin: Normal Color, Warm/Dry Assessment/Plan Assessment and Plan Assess & Plan/Chief Complaint Symbicort No abx Diagnosis/Problems Diagnosis/Problems (1) Small bowel obstruction Status: Acute (2) COPD (chronic obstructive pulmonary disease) Status: Chronic SMILEY AGUIAR MEDICAL STUDENT Mar 27, 2018 09:54 FERNANDO VERA DO Mar 27, 2018 12:21
[2018-03-27] MEDS: RT-ADVAIR HFA 115/21 MCG PER PUFF IH SCH (11:02)
--- NOTE | 2018-03-27 11:20 | Progress Note-Standard ---
Standard Progress Note Progress Notes/Assess & Plan Date Seen by Provider: Mar 27, 2018 Time Seen by Provider: 09:58 Progress/Assessment & Plan no abdominal pain. No nausea. Passing flatus. Abdomen soft and nontender. Could be discharged home Final Diagnosis resolved partial small bowel obstruction LUZ MARINA GONZALES MD Mar 27, 2018 11:20
[2018-03-27] MEDS ORDERED: PATIENT MAY USE OWN MED,SINGLE MED PO SCH (11:45)
[2018-03-27 16:45] VITALS: BP 132/73
[2018-03-28 00:04] VITALS: BP 140/69
[2018-03-28 06:13] LABS: BASOPHILS % (AUTO) 0 % (0-10); EOSINOPHILS # (AUTO) 0.3 10^3/uL (0.0-0.3); EOSINOPHILS % (AUTO) 4 % (0-10); HEMATOCRIT 44 % (35-52); LYMPHOCYTES # (AUTO) 2.2 X 10^3 (1.0-4.0); LYMPHOCYTES % (AUTO) 29 % (12-44); MEAN CORPUSCULAR HEMOGLOBIN 26 PG (25-34); MEAN CORPUSCULAR HGB CONC 32 G/DL (32-36); MEAN CORPUSCULAR VOLUME 80 FL (80-99); MONOCYTES % (AUTO) 13 % (0-12); NEUTROPHILS # (AUTO) 3.9 X 10^3 (1.8-7.8); NEUTROPHILS % (AUTO) 53 % (42-75); PLATELET COUNT 457 10^3/uL (130-400); RED BLOOD COUNT 5.41 10^6/uL (4.35-5.85); RED CELL DISTRIBUTION WIDTH 18.3 % (10.0-14.5); WHITE BLOOD COUNT 7.4 10^3/uL (4.3-11.0)
[2018-03-28 06:32] LABS: ALBUMIN 3.3 GM/DL (3.2-4.5); BUN/CREATININE RATIO 8; CALCIUM 9.3 MG/DL (8.5-10.1); CARBON DIOXIDE 23 MMOL/L (21-32); CHLORIDE 108 MMOL/L (98-107); CREATININE SERUM 0.75 MG/DL (0.60-1.30); GFR ESTIMATED > 60; GLUCOSE 87 MG/DL (70-105); PHOSPHORUS 4.1 MG/DL (2.3-4.7); POTASSIUM 4.1 MMOL/L (3.6-5.0); SODIUM 139 MMOL/L (135-145)
[2018-03-28 08:00] VITALS: BP 105/56
[2018-03-28] MEDS: PANTOPRAZOLE 40 MG (PROTONIX) VIAL IV SCH (08:21)
--- NOTE | 2018-03-28 11:00 | Progress Note ---
Subjective Time Seen by Provider: 10:43 Subjective/Events-last exam Pt seen and examined; she denies abdominal pain and had a BM. Wants to go home , asked if this will happen again. Review of Systems General: No Chills, No Night Sweats Pulmonary: No Dyspnea, No Cough Cardiovascular: No: Chest Pain Gastrointestinal: No: Nausea, Vomiting, Abdominal Pain Objective Exam Vital Signs Date Time Temp Pulse Resp B/P (MAP) Pulse Ox O2 Delivery O2 Flow Rate FiO2 03/28/18 08:00 97.9 61 20 105/56 (72) 93 Room Air 03/28/18 00:04 97.5 53 18 140/69 (92) 94 Room Air 03/27/18 19:17 95 Room Air 03/27/18 16:45 98.5 53 16 132/73 (92) 93 Room Air I & O 03/28/18 06:59 Intake Total 2640 ml Balance 2640 ml Capillary Refill : Less Than 3 Seconds General Appearance: No Apparent Distress, WD/WN HEENT: PERRL/EOMI Neck: Full Range of Motion, Non Tender, Supple Respiratory: Chest Non Tender, Lungs Clear, Normal Breath Sounds, No Accessory Muscle Use, No Respiratory Distress, Other (coarse upper airway cough lungs are clear) Cardiovascular: Regular Rate, Rhythm, No Edema, No Murmur, Normal Peripheral Pulses Gastrointestinal: non tender, soft, no organomegaly Extremity: Non Tender, No Calf Tenderness Neurologic/Psychiatric: Alert, Oriented x3, No Motor/Sensory Deficits, Normal Mood/Affect Skin: Normal Color, Warm/Dry Results Lab Laboratory Tests 03/28/18 05:48: White Blood Count 7.4, Red Blood Count 5.41, Hemoglobin 14.0, Hematocrit 44, Mean Corpuscular Volume 80, Mean Corpuscular Hemoglobin 26, Mean Corpuscular Hemoglobin Concent 32, Red Cell Distribution Width 18.3H, Platelet Count 457H, Mean Platelet Volume 11.0H, Neutrophils (%) (Auto) 53, Lymphocytes (%) (Auto) 29 , Monocytes (%) (Auto) 13H, Eosinophils (%) (Auto) 4, Basophils (%) (Auto) 0, Neutrophils # (Auto) 3.9, Lymphocytes # (Auto) 2.2, Monocytes # (Auto) 1.0, Eosinophils # (Auto) 0.3, Basophils # (Auto) 0.0, Sodium Level 139, Potassium Level 4.1, Chloride Level 108H, Carbon Dioxide Level 23, Anion Gap 8, Blood Urea Nitrogen 6L, Creatinine 0.75, Estimat Glomerular Filtration Rate > 60, BUN/ Creatinine Ratio 8, Glucose Level 87, Calcium Level 9.3, Phosphorus Level 4.1, Albumin 3.3 Microbiology 03/25/18 Urine Culture - Final, Complete See Comments Assessment/Plan Assessment/Plan Assessment/Plan PSBO - resolved, ok to D/C home. Pt was told that unfortunately she will probably have a recurrence of this. There is no way to get rid of adhesions, surgical lysing of adhesions just causes more adhesions. She does not always need to come to hospital; severe or unresolved pain, increasing bloating, inability to keep liquids down or dehydration, and high fever should bring her back in. She can follow up with the surgeon who did her recent HEMANT. She had no questions. Clinical Quality Measures DVT/VTE Risk/Contraindication: Risk Factor Score Per Nursin RFS Level Per Nursing on Admit: 4+=Very High TRUONG BOSS DO Mar 28, 2018 11:00
--- NOTE | 2018-03-28 23:48 | Discharge Summary ---
Diagnosis/Chief Complaint Date of Admission Mar 25, 2018 at 03:04 Date of Discharge Mar 28, 2018 at 12:25 Admission Diagnosis Admission Diagnosis Small bowel obstruction- R11.2 nausea/vomiting- (J44.9) Chronic obstructive pulmonary disease- (K21.9) Gastro-esophageal reflux disease- (K44.9) Diaphragmatic hernia- Discharge Diagnosis K56.600 partial small bowel obstruction R11.2 nausea/vomiting- (J44.9) Chronic obstructive pulmonary disease- (K21.9) Gastro-esophageal reflux disease- (K44.9) Diaphragmatic hernia- Reason Hospital Visit 73 yo F with history of diaphragmatic hernia, COPD, GERD admitted for a small bowel obstruction. She reports onset was last evening with vomiting and everytime she vomited she would have diarrhea. Of note she had lysis of adhesions surgery with Dr. Guy at [place] about 1 month ago. Pt has had loose bowel movements in the last 24hours. Abdominal pain and nausea did not go away with zofran in the ER. CT scan was done demonstrating the small bowel obstruction. Pt was admitted for further evaluation. Pt was given rocephin in ER to cover for possible UTI. Culture was sent. Dr. Montero was consulted for the admitting diagnosis of small bowel obstruction. Pt this AM reports she is doing much better; nausea nearly gone and abdominal pain significantly improved. She is disappointed though because the lysis surgery was suppose to resolve her GI issues along with Linzess. This is her first bout of SBO but wonders if all the other abdominal issues she has been seeing Dr. Patel about were also SBO. No history of Diabetes Mellitus. No fevers. Discharge Summary Hospital Course Hospital Course 73 yo female admitted for small bowel obstruction. She was placed on bowel rest, IVF, pain management. Pain improve significantly as the last time she used any fentanyl was day of discharge- -by day 2 of admission she has been passing gas and abdominal pain improved. She finally had a bowel movement on Wednesday morning 03/28/18 and is feeling even better. She would like to go home as her diet has been advanced. She has another appointment with Dr. Guy in early April. Of note pt has recently been leaving the floor to go outside and smoke cigarettes. So she seems to be doing much better and she was deemed stable for discharge on 03/28/18. Partial small bowel obstruction resolved No new issues with COPD during this hospitalization- recommend smoking cessation for her respiratory status and other health issues (such as her GI issues). Labs Laboratory Tests 03/28/18 05:48: Red Cell Distribution Width 18.3H, Platelet Count 457H, Mean Platelet Volume 11.0H, Monocytes (%) (Auto) 13H, Chloride Level 108H, Blood Urea Nitrogen 6L Procedures None. Consultations Dr. Montero Discharge Physical Examination Allergies: Coded Allergies: atropine (Verified Allergy, Unknown, 07/11/17) codeine (Verified Allergy, Unknown, 07/11/17) diphenoxylate (Verified Allergy, Unknown, 07/11/17) meperidine (Verified Allergy, Unknown, 07/11/17) Vitals & I&Os Vital Signs Date Time Temp Pulse Resp B/P (MAP) Pulse Ox O2 Delivery O2 Flow Rate FiO2 03/28/18 08:00 Room Air 03/28/18 08:00 97.9 61 20 105/56 (72) 93 03/25/18 08:00 2.00 General Appearance: Alert, Oriented X3, Cooperative HEENT: Atraumatic Respiratory: Clear to Auscultation Cardiovascular: Regular Rate Abdominal: Normal Bowel Sounds, Soft, No Tenderness Extremities: No Clubbing Skin: No Rashes Neuro: Normal Speech, Strength at 5/5 X4 Ext Psych/Mental Status: Mental Status NL, Mood NL Discharge Home Medications Reviewed and agree with Discharge Medication list on patient's Discharge Instruction sheet Condition at Discharge improved, stable Instructions to Patient/Family Please see electronic discharge instructions given to patient. Clinical Quality Measures DVT/VTE Risk/Contraindication: Risk Factor Score Per Nursin RFS Level Per Nursing on Admit: 4+=Very High JULIO CESAR HAJI MD Mar 28, 2018 23:47
== END 2018-03-28 12:25 | disposition home or self-care (01) | DRG 389 ==
LOC: EDUNIT# 23:55 → ER 23:56 → 4TH 03-25 03:04
PROVIDERS: ADMIT Family Medicine; ATTEND Family Medicine
DX: K56.600 Partial intestinal obstruction, unspecified as to cause (principal); N39.0 Urinary tract infection, site not specified; F17.210 Nicotine dependence, cigarettes, uncomplicated; J43.9 Emphysema, unspecified; K44.9 Diaphragmatic hernia without obstruction or gangrene; K21.9 Gastro-esophageal reflux disease without esophagitis
CPT/HCPCS: 36415; 74177; 80053; 80069; 81000; 83690; 83735; 85025; 87088; 94640; 94664; 94760; 96361; 96365; 96367; 96375

== ENCOUNTER 2018-05-25 15:34 | Inpatient (IN) | payer MEDICARE, OTHER ==
[~2018-05-25] VITALS: Ht 154.9 cm; Wt 65.4 kg
[~2018-05-25 15:34] MED LIST changes: +LINA145C PO; +PANT40TA3 PO
--- NOTE | 2018-05-25 16:10 | ED Abdominal Pain ---
General Stated Complaint: ABD PAIN Source of Information: Patient Exam Limitations: No Limitations History of Present Illness Date Seen by Provider: May 25, 2018 Time Seen by Provider: 16:00 Initial Comments Patient is a 73-year-old female who presents to the emergency room with complaints of right lower quadrant abdominal pain. She has a history of small bowel obstructions and adhesions. She sees Dr. Ford and Dr. Guy in [place] for gastroenterology and she's been admitted here with a small bowel obstruction to Dr. Montero. She reports that she has an appointment with Dr. Guy tomorrow and was trying to drive to [place] today but her pain, nausea and vomiting became worse and she did not think she could make it to [place]. Last bowel movement was this morning and was small but normal. Timing/Duration: 1-2 Days Severity/Quality: Mild Location: RLQ Radiation: No Radiation Associated Symptoms: Nausea/Vomiting Allergies and Home Medications Allergies Coded Allergies: atropine (Verified Allergy, Unknown, 07/11/17) codeine (Verified Allergy, Unknown, 07/11/17) diphenoxylate (Verified Allergy, Unknown, 07/11/17) meperidine (Verified Allergy, Unknown, 07/11/17) Home Medications Budesonide/Formoterol Fumarate 10.2 Gm Hfa.aer.ad, 2 PUFF IH BID, (Reported) Linaclotide 145 Mcg Capsule, 145 MCG PO DAILY, (Reported) Pantoprazole Sodium 40 Mg Tablet.dr, 40 MG PO DAILY, (Reported) Patient Home Medication List Home Medication List Reviewed: Yes Review of Systems Review of Systems Constitutional: no symptoms reported, see HPI Gastrointestinal: See HPI, Abdominal Pain, Nausea, Vomiting All Other Systems Reviewed Negative Unless Noted: Yes Past Uhrfyma-Qsjvhc-Qrboxo Hx Past Med/Social Hx: Reviewed Nursing Past Med/Soc Hx Patient Social History Alcohol Beverage of Choice: Beer Type Used: Cigarettes 2nd Hand Smoke Exposure: Yes Recent Foreign Travel: No Contact w/Someone Who Travel: No Recent Hopitalizations: No Seasonal Allergies Seasonal Allergies: No Past Medical History Surgeries: Yes (hemrroid,DNC,CERCLAGE) Abdominal, Section Respiratory: Yes COPD, Emphysema Currently Using CPAP: No Cardiac: No Neurological: No Female Reproductive Disorders: Denies Genitourinary: No Gastrointestinal: Yes Colitis, Obstructive Bowel, Hiatal Hernia Musculoskeletal: No Endocrine: No HEENT: No Cancer: No Psychosocial: No Integumentary: No Blood Disorders: No Family Medical History Reviewed Nursing Family Hx Cardiovascular disease 19 FATHER Heart Disease Physical Exam Vital Signs Vital Signs - First Documented 05/25/18 15:50 Temp 97.3 Pulse 65 Resp 16 B/P (MAP) 186/67 (106) Pulse Ox 94 Capillary Refill : Height/Weight/BMI Height: 5'2.00" Weight: 137lbs. 6.0oz. [id number]; 25.1 BMI Method:Stated General Appearance: WD/WN, no apparent distress Respiratory: chest non-tender, lungs clear, normal breath sounds, no respiratory distress, no accessory muscle use Cardiovascular: normal peripheral pulses, regular rate, rhythm, no edema, no gallop, no JVD, no murmur Gastrointestinal: normal bowel sounds, soft, no organomegaly, no pulsatile mass , tenderness (right lower quadrant tenderness no distention noted.) Neurologic/Psychiatric: alert, oriented x 3 Skin: normal color, warm/dry Progress/Results/Core Measures Results/Orders Lab Results Laboratory Tests Test 05/25/18 16:02 05/25/18 17:22 Range/Units White Blood Count 13.1 H 4.3-11.0 10^3/uL Red Blood Count 6.39 H 4.35-5.85 10^6/uL Hemoglobin 17.0 H 11.5-16.0 G/DL Hematocrit 51 35-52 % Mean Corpuscular Volume 80 80-99 FL Mean Corpuscular Hemoglobin 27 25-34 PG Mean Corpuscular Hemoglobin Concent 33 32-36 G/DL Red Cell Distribution Width 20.0 H 10.0-14.5 % Platelet Count 689 H 130-400 10^3/uL Mean Platelet Volume 10.6 H 7.4-10.4 FL Neutrophils (%) (Auto) 72 42-75 % Lymphocytes (%) (Auto) 16 12-44 % Monocytes (%) (Auto) 10 0-12 % Eosinophils (%) (Auto) 2 0-10 % Basophils (%) (Auto) 1 0-10 % Neutrophils # (Auto) 9.5 H 1.8-7.8 X 10^3 Lymphocytes # (Auto) 2.0 1.0-4.0 X 10^3 Monocytes # (Auto) 1.2 H 0.0-1.0 X 10^3 Eosinophils # (Auto) 0.3 0.0-0.3 10^3/uL Basophils # (Auto) 0.1 0.0-0.1 10^3/uL Sodium Level 141 135-145 MMOL/L Potassium Level 4.2 3.6-5.0 MMOL/L Chloride Level 106 98-107 MMOL/L Carbon Dioxide Level 25 21-32 MMOL/L Anion Gap 10 5-14 MMOL/L Blood Urea Nitrogen 16 7-18 MG/DL Creatinine 0.87 0.60-1.30 MG/DL Estimat Glomerular Filtration Rate > 60 BUN/Creatinine Ratio 18 Glucose Level 94 70-105 MG/DL Calcium Level 10.6 H 8.5-10.1 MG/DL Corrected Calcium 8.5-10.1 MG/DL Total Bilirubin 1.4 H 0.1-1.0 MG/DL Aspartate Amino Transf (AST/SGOT) 22 5-34 U/L Alanine Aminotransferase (ALT/SGPT) 19 0-55 U/L Alkaline Phosphatase 72 40-136 U/L Total Protein 8.3 H 6.4-8.2 GM/DL Albumin 4.7 H 3.2-4.5 GM/DL Amylase Level 46 25-125 U/L Lipase 38 8-78 U/L Urine Color YELLOW Urine Clarity CLEAR Urine pH 5 5-9 Urine Specific [place] 1.020 1.016-1.022 Urine Protein NEGATIVE NEGATIVE Urine Glucose (UA) NEGATIVE NEGATIVE Urine Ketones NEGATIVE NEGATIVE Urine Nitrite NEGATIVE NEGATIVE Urine Bilirubin NEGATIVE NEGATIVE Urine Urobilinogen NORMAL NORMAL MG/DL Urine Leukocyte Esterase 2+ H NEGATIVE Urine RBC (Auto) NEGATIVE NEGATIVE Urine RBC NONE /HPF Urine WBC 5-10 H /HPF Urine Squamous Epithelial Cells 5-10 /HPF Urine Crystals NONE /LPF Urine Bacteria FEW H /HPF Urine Casts NONE /LPF Urine Mucus NEGATIVE /LPF Urine Culture Indicated YES My Orders Orders - DARLENE LEVY Ua Culture If Indicated (05/25/18 15:39) Comprehensive Metabolic Panel (05/25/18 16:04) Lipase (05/25/18 16:04) Amylase (05/25/18 16:04) Saline Lock/Iv-Start (05/25/18 16:04) Cbc With Automated Diff (05/25/18 16:04) Ct Abdomen/Pelvis W (05/25/18 16:04) Fentanyl Injection (Sublimaze Injection (05/25/18 16:15) Promethazine Injection (Phenergan Injec (05/25/18 16:15) Ns Iv 1000 Ml (Sodium Chloride 0.9%) (05/25/18 16:15) Iohexol Injection (Omnipaque 350 Mg/Ml 1 (05/25/18 16:45) Contrast Received (Contrast Received) (05/25/18 16:45) Ns (Ivpb) (Sodium Chloride 0.9%) (05/25/18 16:45) Fentanyl Injection (Sublimaze Injection (05/25/18 17:15) Medications Given in ED Current Medications Medications Dose Ordered Sig/Aubrie Route Start Time Stop Time Status Last Admin Dose Admin Fentanyl Citrate 50 mcg ONCE ONCE IVP 05/25/18 16:15 05/25/18 16:16 DC 05/25/18 16:14 50 MCG Fentanyl Citrate 50 mcg ONCE ONCE IVP 05/25/18 17:15 05/25/18 17:16 DC 05/25/18 17:20 50 MCG Iohexol 100 ml ONCE ONCE IV 05/25/18 16:45 05/25/18 16:46 DC 05/25/18 16:57 100 ML Promethazine HCl 25 mg ONCE ONCE IVP 05/25/18 16:15 05/25/18 16:16 DC 05/25/18 16:14 25 MG Sodium Chloride 250 ml ONCE ONCE IV 05/25/18 16:45 05/25/18 16:46 DC 05/25/18 16:57 80 ML Vital Signs/I&O 05/25/18 15:50 Temp 97.3 Pulse 65 Resp 16 B/P (MAP) 186/67 (106) Pulse Ox 94 Progress Progress Note : Time: 17:55 Progress Note I have seen and evaluated the patient. I've informed her of her imaging studies and the need for admission. I spoke to Dr. Montero at this time and he agrees to accept the patient to his services. He recommends putting an NG tube down for comfort. Patient agrees with plan of care. Diagnostic Imaging Diagonstic Imaging: CT Plain Films/CT/US/NM/MRI: abdomen, c-spine Comments VIA [facility], [facility]. [place], [place] NAME: KACEY ANTONY [facility] REC#: [id number] PT STATUS: REG ER : 1945 PHYSICIAN: DARLENE LEVY ADMIT DATE: 05/25/18/ER Draft Date of Exam:05/25/18 CT ABDOMEN/PELVIS W PROCEDURE: CT abdomen and pelvis with contrast. TECHNIQUE: Multiple contiguous axial images were obtained through the abdomen and pelvis after administration of intravenous contrast. INDICATION: Mid abdominal pain. COMPARISON: Comparison is made to study of 03/25/2018. FINDINGS: There is mild atelectasis and/or scarring in the right lung base. Moderate hiatal hernia is noted similar to the previous study. There is low density throughout the liver indicating steatosis. No gallbladder, pancreatic, or splenic lesion is identified. Respiratory motion limits study; however, no definite adrenal gland lesion or change from previous study is noted. Kidneys are also unremarkable. There is diffuse fluid distention of small bowel which appears to involve jejunum to greatest extent. There does appear to be a transition point in the supravesicular region to the right of midline. No definite free fluid is seen. There is no evidence of organized fluid collection to indicate an abscess. IMPRESSION: Findings are highly suggestive of small bowel obstruction likely in region of distal jejunum or proximal ileum in the right lower quadrant. This may be on the basis of adhesion and clinical correlation is recommended. Otherwise, no other significant change is seen on the limited examination. Dictated on workstation # [id number] Dict: 05/25/18 1720 Trans: 05/25/18 1731 [id number] Interpreted by: JANEL ANDERSEN MD Electronically signed by: Reviewed: Reviewed by Me Departure Communication (Admissions) Time/Spoke to Admitting Phy: 17:55 Dr. Montero Impression Primary Impression: Partial small bowel obstruction Disposition: ADMITTED INPATIENT Condition: Stable Admissions Decision to Admit Reason: Admit from ER (General) Decision to Admit/Date: May 25, 2018 Time/Decision to Admit Time: 17:55 Departure-Patient Inst. Referrals: JULIO CESAR HAJI MD (PCP/Family) Primary Care Physician DARLENE LEVY May 25, 2018 16:10
[2018-05-25 16:11] LABS: BASOPHILS # (AUTO) 0.1 10^3/uL (0.0-0.1); BASOPHILS % (AUTO) 1 % (0-10); EOSINOPHILS # (AUTO) 0.3 10^3/uL (0.0-0.3); EOSINOPHILS % (AUTO) 2 % (0-10); HEMATOCRIT 51 % (35-52); LYMPHOCYTES % (AUTO) 16 % (12-44); MEAN CORPUSCULAR HEMOGLOBIN 27 PG (25-34); MEAN CORPUSCULAR HGB CONC 33 G/DL (32-36); MEAN CORPUSCULAR VOLUME 80 FL (80-99); MEAN PLATELET VOLUME 10.6 FL (7.4-10.4); MONOCYTES # (AUTO) 1.2 X 10^3 (0.0-1.0); MONOCYTES % (AUTO) 10 % (0-12); NEUTROPHILS # (AUTO) 9.5 X 10^3 (1.8-7.8); NEUTROPHILS % (AUTO) 72 % (42-75); PLATELET COUNT 689 10^3/uL (130-400); RED BLOOD COUNT 6.39 10^6/uL (4.35-5.85); WHITE BLOOD COUNT 13.1 10^3/uL (4.3-11.0)
[2018-05-25] MEDS ORDERED: PROMETHAZINE INJ 25 MG/ML (PHENERGAN) AMP IVP ONE (16:15)
[2018-05-25] MEDS ORDERED: fentaNYL INJECTION 100 MCG/2 ML AMP IVP ONE ×3 (16:15→18:45)
[2018-05-25] MEDS ORDERED: NS IV 1000 ML 1,000 ML IV SCH (16:15)
[2018-05-25 16:30] LABS: ALANINE AMINOTRANSFERASE 19 U/L (0-55); ALBUMIN 4.7 GM/DL (3.2-4.5); ALKALINE PHOSPHATASE 72 U/L (40-136); AMYLASE 46 U/L (25-125); BILIRUBIN,TOTAL 1.4 MG/DL (0.1-1.0); BUN/CREATININE RATIO 18; CALCIUM 10.6 MG/DL (8.5-10.1); CARBON DIOXIDE 25 MMOL/L (21-32); CHLORIDE 106 MMOL/L (98-107); CREATININE SERUM 0.87 MG/DL (0.60-1.30); GFR ESTIMATED > 60; GLUCOSE 94 MG/DL (70-105); LIPASE 38 U/L (8-78); POTASSIUM 4.2 MMOL/L (3.6-5.0); SODIUM 141 MMOL/L (135-145); TOTAL PROTEIN 8.3 GM/DL (6.4-8.2)
[2018-05-25] MEDS ORDERED: NS 250 ML (IVPB) BAG IV ONE (16:45)
[2018-05-25] MEDS ORDERED: RECEIVED CONTRAST (Hold Metformin) IV SCH (16:45)
[2018-05-25] MEDS ORDERED: IOHEXOL 350 MG/ML 100 ML (OMNIPAQUE 350) VIAL IV ONE (16:45)
[2018-05-25 17:30] LABS: BILIRUBIN,URINE NEGATIVE (NEGATIVE); CLARITY,URINE CLEAR; COLOR,URINE YELLOW; GLUCOSE, URINE (UA) NEGATIVE (NEGATIVE); KETONES,URINE NEGATIVE (NEGATIVE); LEUKOCYTE ESTERASE ,URINE 2+ (NEGATIVE); NITRITE,URINE NEGATIVE (NEGATIVE); PH,URINE 5 (5-9); PROTEIN,URINE NEGATIVE (NEGATIVE); UROBILINOGEN,URINE NORMAL (NORMAL)
--- NOTE | 2018-05-25 17:31 | Diagnostic Imaging Report ---
PROCEDURE: CT abdomen and pelvis with contrast. TECHNIQUE: Multiple contiguous axial images were obtained through the abdomen and pelvis after administration of intravenous contrast. INDICATION: Mid abdominal pain. COMPARISON: Comparison is made to study of 03/25/2018. FINDINGS: There is mild atelectasis and/or scarring in the right lung base. Moderate hiatal hernia is noted similar to the previous study. There is low density throughout the liver indicating steatosis. No gallbladder, pancreatic, or splenic lesion is identified. Respiratory motion limits study; however, no definite adrenal gland lesion or change from previous study is noted. Kidneys are also unremarkable. There is diffuse fluid distention of small bowel which appears to involve jejunum to greatest extent. There does appear to be a transition point in the supravesicular region to the right of midline. No definite free fluid is seen. There is no evidence of organized fluid collection to indicate an abscess. IMPRESSION: Findings are highly suggestive of small bowel obstruction likely in region of distal jejunum or proximal ileum in the right lower quadrant. This may be on the basis of adhesion and clinical correlation is recommended. Otherwise, no other significant change is seen on the limited examination. Dictated by: Dictated on workstation # [id number]
[2018-05-25 17:59] LABS: BACTERIA,URINE FEW /HPF
[2018-05-25] MEDS ORDERED: ONDANSETRON 4 MG/2 ML (SDV) Z0FRAN IVP ONE (18:45)
[2018-05-25 19:08] VITALS: BP 148/72
[2018-05-25] MEDS ORDERED: CATHETER FLUSH 10 ML SYR IV PRN (19:30)
[2018-05-25] MEDS: NS IV 1000 ML 1,000 ML IV SCH (20:17)
[2018-05-25] MEDS: ONDANSETRON 4 MG/2 ML (SDV) Z0FRAN IV PRN (20:21)
[2018-05-25] MEDS: fentaNYL INJECTION 100 MCG/2 ML AMP IV PRN (20:22)
--- NOTE | 2018-05-25 21:17 | Diagnostic Imaging Report ---
INDICATION: Nasogastric tube evaluation. EXAMINATION: Portable upright AP view of the chest was obtained. COMPARISON: Study of 07/11/2017. FINDINGS: There is continued significant elevation of the right hemidiaphragm. Overall heart size and pulmonary vascularity are stable and within normal limits. Nasogastric tube passes below the diaphragm with tip in the region of the gastric outlet. IMPRESSION: Tip of nasogastric tube projects over the gastric outlet. There is continued elevation of the right hemidiaphragm with probable mild basilar scarring. Otherwise, no acute abnormality is identified. Dictated by: Dictated on workstation # [id number]
[2018-05-26] VITALS: BP 142/80
[2018-05-26] MEDS: fentaNYL INJECTION 100 MCG/2 ML AMP IV PRN ×6 (00:09→22:02)
[2018-05-26] MEDS: PROMETHAZINE INJ 25 MG/ML (PHENERGAN) AMP IV PRN ×2 (00:16→11:07)
[2018-05-26] MEDS: NS IV 1000 ML 1,000 ML IV SCH ×2 (03:53→14:07)
[2018-05-26 04:00] VITALS: BP 143/83
[2018-05-26] MEDS: ONDANSETRON 4 MG/2 ML (SDV) Z0FRAN IV PRN (07:03)
[2018-05-26] MEDS ORDERED: FLU QUADRIvalent (5+ YOA) 2018-2019 (AFLURIA) 0.5 ML IM ONE (07:30)
[2018-05-26 08:00] VITALS: BP 132/68
[2018-05-26 08:45] LABS: BASOPHILS % (AUTO) 0 % (0-10); EOSINOPHILS # (AUTO) 0.1 10^3/uL (0.0-0.3); EOSINOPHILS % (AUTO) 1 % (0-10); HEMATOCRIT 51 % (35-52); HEMOGLOBIN 16.7 G/DL (11.5-16.0); LYMPHOCYTES # (AUTO) 1.1 X 10^3 (1.0-4.0); LYMPHOCYTES % (AUTO) 7 % (12-44); MEAN CORPUSCULAR HGB CONC 33 G/DL (32-36); MEAN CORPUSCULAR VOLUME 81 FL (80-99); MEAN PLATELET VOLUME 10.5 FL (7.4-10.4); MONOCYTES # (AUTO) 1.7 X 10^3 (0.0-1.0); MONOCYTES % (AUTO) 11 % (0-12); NEUTROPHILS # (AUTO) 12.5 X 10^3 (1.8-7.8); NEUTROPHILS % (AUTO) 81 % (42-75); PLATELET COUNT 603 10^3/uL (130-400); RED BLOOD COUNT 6.31 10^6/uL (4.35-5.85); WHITE BLOOD COUNT 15.4 10^3/uL (4.3-11.0)
[2018-05-26 08:48] LABS: MEAN CORPUSCULAR HEMOGLOBIN 26 PG (25-34)
[2018-05-26 09:07] LABS: ALANINE AMINOTRANSFERASE 18 U/L (0-55); ALBUMIN 3.9 GM/DL (3.2-4.5); ALKALINE PHOSPHATASE 59 U/L (40-136); BILIRUBIN,TOTAL 1.8 MG/DL (0.1-1.0); BUN/CREATININE RATIO 16; CALCIUM 9.7 MG/DL (8.5-10.1); CARBON DIOXIDE 19 MMOL/L (21-32); CHLORIDE 108 MMOL/L (98-107); CREATININE SERUM 0.77 MG/DL (0.60-1.30); GFR ESTIMATED > 60; GLUCOSE 110 MG/DL (70-105); SODIUM 141 MMOL/L (135-145); TOTAL PROTEIN 6.8 GM/DL (6.4-8.2)
--- NOTE | 2018-05-26 09:20 | Consultation ---
History of Present Illness History of Present Illness Patient Consulted On(alden/time) 05/26/18 09:14 Time Seen by Provider: 08:43 History of Present Illness Surgery asked to consult regarding PSBO. HPI per ER: Patient is a 73-year-old female who presents to the emergency room with complaints of right lower quadrant abdominal pain. She has a history of small bowel obstructions and adhesions. She sees Dr. Ford and Dr. Guy in [place] for gastroenterology and she's been admitted here with a small bowel obstruction to Dr. Boss. She reports that she has an appointment with Dr. Guy tomorrow and was trying to drive to [place] today but her pain, nausea and vomiting became worse and she did not think she could make it to [place]. Last bowel movement was this morning and was small but normal. Timing/Duration: 1-2 Days Severity/Quality: Mild Location: RLQ Radiation: No Radiation Associated Symptoms: Nausea/Vomiting When seen this am pt describes severe pain that started yesterday; "I knew it was same thing as last time and started heading to hospital". Pt states usually she waits longer to come in, but couldn't this time because pain was at least 8 out of 10. She is worried this morning because pain usually starts getting better, but admits she has come in earlier than normal. She states the pain comes in waves and then nausea and vomiting follow. She thinks her abdomen is softer today, but pain not better. She is not really sure what brings the pain on, not necessarily with movement. She states pain when I saw her was maybe 2 or 3 out of 10. She is scared because she thinks this is different. She has basically gone 2 months without pain, since last admission to hospital. She had a BM yesterday, nothing today and no flatus. Allergies and Home Medications Allergies Coded Allergies: atropine (Verified Allergy, Unknown, 07/11/17) codeine (Verified Allergy, Unknown, 07/11/17) diphenoxylate (Verified Allergy, Unknown, 07/11/17) meperidine (Verified Allergy, Unknown, 07/11/17) Home Medications Budesonide/Formoterol Fumarate 10.2 Gm Hfa.aer.ad, 2 PUFF IH BID, (Reported) Pantoprazole Sodium 40 Mg Tablet.dr, 40 MG PO DAILY, (Reported) Patient Home Medication List Home Medication List Reviewed: Yes Past Fffvadv-Agtuee-Bittgv Hx Patient Social History Alcohol Use: Occasionally Uses Number of Drinks Today: AA Recreational Drug Use: No Smoking Status: Current Everyday Smoker Type Used: Cigarettes 2nd Hand Smoke Exposure: Yes Recent Foreign Travel: No Contact w/Someone Who Travel: No Recent Infectious Disease Expo: No Recent Hopitalizations: No Physical Abuse Screen: No Sexual Abuse: No Seasonal Allergies Seasonal Allergies: No Surgeries History of Surgeries: Yes (hemrroid,DNC,CERCLAGE) Surgeries: Abdominal, Section Respiratory History of Respiratory Disorde: Yes Respiratory Disorders: COPD, Emphysema Cardiovascular History of Cardiac Disorders: No Neurological History of Neurological Disord: No Reproductive System : No Female Reproductive Disorders: Denies Genitourinary History of Genitourinary Disor: No Gastrointestinal History of Gastrointestinal Di: Yes Gastrointestinal Disorders: Colitis, Obstructive Bowel, Hiatal Hernia Musculoskeletal History of Musculoskeletal Dis: No Endocrine History of Endocrine Disorders: No HEENT History of HEENT Disorders: No Loss of Vision: Denies Hearing Impairment: Denies Cancer History of Cancer: No Psychosocial History of Psychiatric Problem: No Integumentary History of Skin or Integumenta: No Blood Transfusions History of Blood Disorders: No Family Medical History Significant Family History: Heart Disease Family Medial History: Cardiovascular disease 19 FATHER Review of Systems-General Constitutional: diaphoresis, malaise EENTM: No blurred vision, No mouth pain, No mouth swelling, No throat pain, No throat swelling Respiratory: No cough, No dyspnea on exertion, No hemoptysis Cardiovascular: No chest pain, No edema, No Hx of Intervention Gastrointestinal: abdominal pain, loss of appetite; No melena; nausea, vomiting Genitourinary: No dysuria; frequency; No hematuria; other (Just treated last week for UTI) Musculoskeletal: joint pain, joint swelling, muscle stiffness Skin: No change in color, No change in hair/nails Psychiatric/Neurological: Denies Anxiety, Denies Depressed, Denies Headache, Denies Seizure Other pt denies any abnormal bleeding or bruising, denies heat or cold intolerance Physical Exam-General Problems Physical Exam Vital Signs Vital Signs - First Documented 05/25/18 05/25/18 15:50 19:08 Temp 97.3 Pulse 65 Resp 16 B/P (MAP) 186/67 (106) Pulse Ox 94 O2 Delivery Room Air O2 Flow Rate 2.00 Capillary Refill : Less Than 3 Seconds General Appearance: WD/WN, moderate distress Eyes: Bilateral Eye PERRL, Bilateral Eye EOMI HEENT: pharynx normal; No scleral icterus (R), No scleral icterus (L); other ( NGT in place) Neck: non-tender, supple; No thyromegaly Respiratory: chest non-tender, lungs clear, normal breath sounds, no respiratory distress, no accessory muscle use Cardiovascular: regular rate, rhythm, no edema, no murmur Gastrointestinal: soft, no organomegaly, abnormal bowel sounds, tenderness ( suprapubic and RUQ, minimal LUQ) Back: no CVA tenderness, no vertebral tenderness Extremities: normal range of motion, non-tender, normal inspection, no pedal edema, no calf tenderness Neurologic/Psychiatric: editor II-XII nml as tested, no motor/sensory deficits, alert, normal mood/affect, oriented x 3 Skin: normal color, warm/dry Lymphatic: no adenopathy (neck, axilla or groin) Data Review Labs Laboratory Tests 05/25/18 16:02: White Blood Count 13.1H, Red Blood Count 6.39H, Hemoglobin 17.0H, Hematocrit 51 , Mean Corpuscular Volume 80, Mean Corpuscular Hemoglobin 27, Mean Corpuscular Hemoglobin Concent 33, Red Cell Distribution Width 20.0H, Platelet Count 689H, Mean Platelet Volume 10.6H, Neutrophils (%) (Auto) 72, Lymphocytes (%) (Auto) 16 , Monocytes (%) (Auto) 10, Eosinophils (%) (Auto) 2, Basophils (%) (Auto) 1, Neutrophils # (Auto) 9.5H, Lymphocytes # (Auto) 2.0, Monocytes # (Auto) 1.2H, Eosinophils # (Auto) 0.3, Basophils # (Auto) 0.1, Sodium Level 141, Potassium Level 4.2, Chloride Level 106, Carbon Dioxide Level 25, Anion Gap 10, Blood Urea Nitrogen 16, Creatinine 0.87, Estimat Glomerular Filtration Rate > 60, BUN/ Creatinine Ratio 18, Glucose Level 94, Calcium Level 10.6H, Corrected Calcium , Total Bilirubin 1.4H, Aspartate Amino Transf (AST/SGOT) 22, Alanine Aminotransferase (ALT/SGPT) 19, Alkaline Phosphatase 72, Total Protein 8.3H, Albumin 4.7H, Amylase Level 46, Lipase 38 05/25/18 17:22: Urine Color YELLOW, Urine Clarity CLEAR, Urine pH 5, Urine Specific [place] 1.020, Urine Protein NEGATIVE, Urine Glucose (UA) NEGATIVE, Urine Ketones NEGATIVE, Urine Nitrite NEGATIVE, Urine Bilirubin NEGATIVE, Urine Urobilinogen NORMAL, Urine Leukocyte Esterase 2+H, Urine RBC (Auto) NEGATIVE, Urine RBC NONE , Urine WBC 5-10H, Urine Squamous Epithelial Cells 5-10, Urine Crystals NONE, Urine Bacteria FEWH, Urine Casts NONE, Urine Mucus NEGATIVE, Urine Culture Indicated YES 05/26/18 07:47: White Blood Count 15.4H, Red Blood Count 6.31H, Hemoglobin 16.7H, Hematocrit 51 , Mean Corpuscular Volume 81, Mean Corpuscular Hemoglobin 26, Mean Corpuscular Hemoglobin Concent 33, Red Cell Distribution Width 20.0H, Platelet Count 603H, Mean Platelet Volume 10.5H, Neutrophils (%) (Auto) 81H, Lymphocytes (%) (Auto) 7L, Monocytes (%) (Auto) 11, Eosinophils (%) (Auto) 1, Basophils (%) (Auto) 0, Neutrophils # (Auto) 12.5H, Lymphocytes # (Auto) 1.1, Monocytes # (Auto) 1.7H, Eosinophils # (Auto) 0.1, Basophils # (Auto) 0.0, Sodium Level 141, Potassium Level 4.0, Chloride Level 108H, Carbon Dioxide Level 19L, Anion Gap 14, Blood Urea Nitrogen 12, Creatinine 0.77, Estimat Glomerular Filtration Rate > 60, BUN/ Creatinine Ratio 16, Glucose Level 110H, Calcium Level 9.7, Corrected Calcium 9.8, Total Bilirubin 1.8H, Aspartate Amino Transf (AST/SGOT) 20, Alanine Aminotransferase (ALT/SGPT) 18, Alkaline Phosphatase 59, Total Protein 6.8, Albumin 3.9 Radiology PROCEDURE: CT abdomen and pelvis with contrast. TECHNIQUE: Multiple contiguous axial images were obtained through the abdomen and pelvis after administration of intravenous contrast. INDICATION: Mid abdominal pain. COMPARISON: Comparison is made to study of 03/25/2018. FINDINGS: There is mild atelectasis and/or scarring in the right lung base. Moderate hiatal hernia is noted similar to the previous study. There is low density throughout the liver indicating steatosis. No gallbladder, pancreatic, or splenic lesion is identified. Respiratory motion limits study; however, no definite adrenal gland lesion or change from previous study is noted. Kidneys are also unremarkable. There is diffuse fluid distention of small bowel which appears to involve jejunum to greatest extent. There does appear to be a transition point in the supravesicular region to the right of midline. No definite free fluid is seen. There is no evidence of organized fluid collection to indicate an abscess. IMPRESSION: Findings are highly suggestive of small bowel obstruction likely in region of distal jejunum or proximal ileum in the right lower quadrant. This may be on the basis of adhesion and clinical correlation is recommended. Otherwise, no other significant change is seen on the limited examination. Assessment/Plan Assessment/Plan Assessment/Plan 1. PSBO 2. N/V secondary to above 3. COPD/Emphysema Plan is NPO, NGT, IV fluids, pain control and anti-emetics. Zofran 4mg not working, will increase to 8mg. I talked with pt regarding her CT and plan of care. Same as when she came in in March; we are trying to avoid surgery if we can, because it only causes more adhesions. Fixes the short problem, but basically can still have same problem in the future. I think she may need a SBFT, but unsure how well it will work with her vomiting. Will monitor her and see if she gets better or worse; may either do SBFT later today or tomorrow, depending on her progression or lack thereof. She understands and doesn't want surgery unless she has to have; just hates the NGT right now. Her WBC did increase slightly today but the CT is not worse than last time; Radiologist thinks the PSBO may be in different place than last time. All questions answered to pt's satisfaction. Clinical Quality Measures DVT/VTE Risk/Contraindication: Risk Factor Score Per Nursin RFS Level Per Nursing on Admit: 3=High TRUONG BOSS DO May 26, 2018 09:20
[2018-05-26 09:24] LABS: BAND NEUTROPHILS 17 %; BASOPHILS % (MANUAL) 0 %; EOSINOPHILS % (MANUAL) 1 %; LYMPHOCYTES % (MANUAL) 3 %; MONOCYTES % (MANUAL) 9 %; NEUTROPHILS % (MANUAL) 61 %; POIKILOCYTOSIS MODERATE; REACTIVE LYMPHOCYTES 9 %
[2018-05-26 09:25] LABS: ELLIPT/OVALOCYTES SLIGHT; MICROCYTOSIS SLIGHT; STOMATOCYTES SLIGHT; TARGET CELLS SLIGHT; TOXIC GRANULATION/VACUOLAZATIO 1+
[2018-05-26 09:26] LABS: ANISOCYTOSIS SLIGHT
[2018-05-26] MEDS ORDERED: ONDANSETRON 4 MG/2 ML (SDV) Z0FRAN IVP PRN (09:30)
[2018-05-26] MEDS: PANTOPRAZOLE 40 MG (PROTONIX) VIAL IV SCH (10:37)
[2018-05-26 12:00] VITALS: BP 119/72
[2018-05-26 16:01] VITALS: BP 122/65
[2018-05-26 20:13] VITALS: BP 126/67
--- NOTE | 2018-05-26 23:00 | History & Physical ---
History of Present Illness History of Present Illness Reason for visit/HPI 73 yo F admitted with a partial small bowel obstruction noted on CT- Last episode was March. She feels like she has some sort of episode monthly. This abdominal pain started yesterday and has quickly gotten worse. She usually waits longer but it is a little different this time as she has not improved and she is vomiting still with the NGT in place. -She is more concerned. Last bowel movement was yesterday. Pt admitted for further evaluation. She follows with Dr. Patel and Dr. Guy in [place], [place] and was actually going to go there but the abdominal pain was severe enough she decided to go to [place]. Denies any fevers. Date of Admission May 25, 2018 Date Seen by a Provider: May 26, 2018 Time Seen by a Provider: 08:30 I consulted on this patient on 05/26/18 22:55 Attending Physician Juan Ramon Montero DO Admitting Physician Chris Haji MD Consult Allergies and Home Medications Allergies Coded Allergies: atropine (Verified Allergy, Unknown, 07/11/17) codeine (Verified Allergy, Unknown, 07/11/17) diphenoxylate (Verified Allergy, Unknown, 07/11/17) meperidine (Verified Allergy, Unknown, 07/11/17) Home Medications Budesonide/Formoterol Fumarate 10.2 Gm Hfa.aer.ad, 2 PUFF IH BID, (Reported) Pantoprazole Sodium 40 Mg Tablet.dr, 40 MG PO DAILY, (Reported) Patient Home Medication List Home Medication List Reviewed: Yes Past Ljreyba-Lnajbx-Yooehg Hx Patient Social History Alcohol Use: Occasionally Uses Number of Drinks Today: AA Alcohol Beverage of Choice: Beer Recreational Drug Use: No Smoking Status: Current Everyday Smoker Type Used: Cigarettes 2nd Hand Smoke Exposure: Yes Physical Abuse Screen: No Sexual Abuse: No Recent Foreign Travel: No Contact w/other who traveled: No Recent Hopitalizations: No Recent Infectious Disease Expo: No Seasonal Allergies Seasonal Allergies: No Surgeries Yes (hemrroid,DNC,CERCLAGE) Abdominal, Section Respiratory Yes Currently Using CPAP: No Currently Using BIPAP: No Cardiovascular No Neurological No Reproductive System : No Female Reproductive Disorders: Denies Genitourinary No Gastrointestinal Yes Colitis, Obstructive Bowel, Hiatal Hernia Musculoskeletal No Endocrine History of Endocrine Disorders: No HEENT History of HEENT Disorders: No Loss of Vision: Denies Hearing Impairment: Denies Cancer No Psychosocial History of Psychiatric Problem: No Integumentary History of Skin or Integumenta: No Blood Transfusions History of Blood Disorders: No Family Medical History Significant Family History: Heart Disease Family Hx: Cardiovascular disease 19 FATHER Review of Systems Review of Systems General: No Chills, No Night Sweats HEENT: No Head Aches, No Visual Changes Pulmonary: No Dyspnea, No Cough Cardiovascular: No: Chest Pain, Palpitations Gastrointestinal: Nausea, Vomiting, Abdominal Pain Genitourinary: No Dysuria; Frequency Musculoskeletal: No: neck pain, shoulder pain Neurological: Weakness All Other Systems Reviewed All Other Systems Reviewed: Yes Physical Exam Vital Signs Vital Signs - First Documented 05/25/18 05/25/18 15:50 19:08 Temp 97.3 Pulse 65 Resp 16 B/P (MAP) 186/67 (106) Pulse Ox 94 O2 Delivery Room Air O2 Flow Rate 2.00 Capillary Refill : Less Than 3 Seconds Height, Weight, BMI Height: 5'1.00" Weight: 144lbs. 3.0oz. [id number]; 27.2 BMI Method:Stated General Appearance: Moderate Distress HEENT: PERRL/EOMI Neck: Non Tender, Supple Respiratory: Chest Non Tender, Lungs Clear, Normal Breath Sounds, No Accessory Muscle Use, No Respiratory Distress Cardiovascular: Regular Rate, Rhythm, No Edema Gastrointestinal: Soft, Abnormal Bowel Sounds, Tenderness Rectal: Deferred Back: No CVA Tenderness Extremity: Normal Range of Motion, Non Tender Neurologic/Psychiatric: Alert, Oriented x3, Normal Mood/Affect Skin: Warm/Dry Assessment/Plan Assessment/Plan Admission Dx partial small bowel obstruction Admission Status: Inpatient Order (span 2 midnights) Reason for Inpatient Admission: patient again has a small bowel obstruction- noted on CT- It will take at least 2 midnights minimally monitoring- possibly may need surgical intervention. Assessment and Plan K56.6 partial small bowel obstruction- Dr. Montero consulted, IVF, ambulation , bowel rest, NGT R11.2 nausea/vomiting- zofran prn (J44.9) Chronic obstructive pulmonary disease- controlled ; continue home inhalers. (K21.9) Gastro-esophageal reflux disease- monitor (K44.9) Diaphragmatic hernia- likely contributes to GERD Dispo: close monitoring- Dr. Montero considering SBFT- will need to improve in the n/v Clinical Quality Measures DVT/VTE Risk/Contraindication: Risk Factor Score Per Nursin RFS Level Per Nursing on Admit: 3=High CHRIS HAJI MD May 26, 2018 23:00
[2018-05-27] MEDS: NS IV 1000 ML 1,000 ML IV SCH ×3 (00:10→20:37)
[2018-05-27 00:35] VITALS: BP 117/70
[2018-05-27] MEDS: fentaNYL INJECTION 100 MCG/2 ML AMP IV PRN (02:27)
[2018-05-27 04:03] VITALS: BP 133/71
[2018-05-27 08:00] VITALS: BP 154/80
[2018-05-27 08:04] LABS: BASOPHILS # (AUTO) 0.1 10^3/uL (0.0-0.1); BASOPHILS % (AUTO) 1 % (0-10); EOSINOPHILS # (AUTO) 0.2 10^3/uL (0.0-0.3); EOSINOPHILS % (AUTO) 2 % (0-10); HEMATOCRIT 47 % (35-52); HEMOGLOBIN 14.7 G/DL (11.5-16.0); LYMPHOCYTES # (AUTO) 1.8 X 10^3 (1.0-4.0); LYMPHOCYTES % (AUTO) 17 % (12-44); MEAN CORPUSCULAR HEMOGLOBIN 27 PG (25-34); MEAN CORPUSCULAR HGB CONC 31 G/DL (32-36); MEAN CORPUSCULAR VOLUME 85 FL (80-99); MEAN PLATELET VOLUME 10.5 FL (7.4-10.4); MONOCYTES # (AUTO) 1.4 X 10^3 (0.0-1.0); MONOCYTES % (AUTO) 13 % (0-12); NEUTROPHILS % (AUTO) 67 % (42-75); PLATELET COUNT 464 10^3/uL (130-400); RED BLOOD COUNT 5.55 10^6/uL (4.35-5.85); RED CELL DISTRIBUTION WIDTH 19.4 % (10.0-14.5); WHITE BLOOD COUNT 10.5 10^3/uL (4.3-11.0)
[2018-05-27] MEDS: PANTOPRAZOLE 40 MG (PROTONIX) VIAL IV SCH (08:09)
[2018-05-27 08:25] LABS: ALANINE AMINOTRANSFERASE 12 U/L (0-55); ALBUMIN 3.4 GM/DL (3.2-4.5); ALKALINE PHOSPHATASE 47 U/L (40-136); BILIRUBIN,TOTAL 1.6 MG/DL (0.1-1.0); BUN/CREATININE RATIO 13; CALCIUM 8.9 MG/DL (8.5-10.1); CARBON DIOXIDE 22 MMOL/L (21-32); CHLORIDE 111 MMOL/L (98-107); GFR ESTIMATED > 60; GLUCOSE 88 MG/DL (70-105); SODIUM 141 MMOL/L (135-145); TOTAL PROTEIN 5.8 GM/DL (6.4-8.2)
--- NOTE | 2018-05-27 10:56 | Progress Note ---
Subjective Time Seen by a Provider: 10:29 Subjective/Events-last exam Pt seen and examined, states she does not have any nausea or vomiting. However , she states she doesn't feel as good as she thought she would or should. She complains of a "soarness" all over the stomach. She also has "congestion" and believes it is due to the NGT; she really wants the tube out. She has had some flatus and a small BM. Review of Systems General: No Chills, No Night Sweats HEENT: No Head Aches, No Visual Changes Pulmonary: No Dyspnea, No Cough; Other Cardiovascular: No: Chest Pain, Palpitations Gastrointestinal: Abdominal Pain; No: Nausea, Vomiting Objective Exam Vital Signs Date Time Temp Pulse Resp B/P (MAP) Pulse Ox O2 Delivery O2 Flow Rate FiO2 05/27/18 08:45 91 Nasal Cannula 2.00 05/27/18 08:14 91 Nasal Cannula 2.00 05/27/18 08:00 98.0 87 22 154/80 (104) 92 Nasal Cannula 2.00 05/27/18 04:03 98.6 71 18 133/71 (91) 95 Nasal Cannula 2.00 05/27/18 03:08 95 Nasal Cannula 2.00 05/27/18 00:35 97.9 77 16 117/70 (86) 95 Nasal Cannula 2.00 05/26/18 20:13 98.1 80 16 126/67 (86) 95 Nasal Cannula 2.00 05/26/18 19:33 96 Nasal Cannula 2.00 05/26/18 16:01 96.8 84 20 122/65 (84) 90 Nasal Cannula 2.00 05/26/18 12:00 99.4 90 16 119/72 (88) 97 Nasal Cannula 2.00 05/26/18 10:57 94 Nasal Cannula 2.00 I & O 05/27/18 07:00 Intake Total 2000 ml Output Total 1900 ml Balance 100 ml Capillary Refill : Less Than 3 Seconds General Appearance: WD/WN, Mild Distress HEENT: PERRL/EOMI, Other (NGT in place) Neck: Non Tender, Supple Respiratory: Chest Non Tender, No Accessory Muscle Use, No Respiratory Distress , Crackles (mostly upper, could just be URI); No Wheezing Cardiovascular: Regular Rate, Rhythm, No Edema Gastrointestinal: soft, no organomegaly, tenderness (suprapubic and mid- epigastric, minimal LUQ; does not seem to be as bad as yesterday) Extremity: Normal Range of Motion, Non Tender Neurologic/Psychiatric: Alert, Oriented x3, Normal Mood/Affect Skin: Normal Color, Warm/Dry Results Lab Laboratory Tests 05/26/18 11:00: Lab Scanned Report Referred Lab Report 05/27/18 07:55: White Blood Count 10.5, Red Blood Count 5.55, Hemoglobin 14.7, Hematocrit 47, Mean Corpuscular Volume 85, Mean Corpuscular Hemoglobin 27, Mean Corpuscular Hemoglobin Concent 31L, Red Cell Distribution Width 19.4H, Platelet Count 464H, Mean Platelet Volume 10.5H, Neutrophils (%) (Auto) 67, Lymphocytes (%) (Auto) 17 , Monocytes (%) (Auto) 13H, Eosinophils (%) (Auto) 2, Basophils (%) (Auto) 1, Neutrophils # (Auto) 7.0, Lymphocytes # (Auto) 1.8, Monocytes # (Auto) 1.4H, Eosinophils # (Auto) 0.2, Basophils # (Auto) 0.1, Sodium Level 141, Potassium Level 4.0, Chloride Level 111H, Carbon Dioxide Level 22, Anion Gap 8, Blood Urea Nitrogen 9, Creatinine 0.70, Estimat Glomerular Filtration Rate > 60, BUN/ Creatinine Ratio 13, Glucose Level 88, Calcium Level 8.9, Corrected Calcium 9.4 , Total Bilirubin 1.6H, Aspartate Amino Transf (AST/SGOT) 14, Alanine Aminotransferase (ALT/SGPT) 12, Alkaline Phosphatase 47, Total Protein 5.8L, Albumin 3.4 Microbiology 05/25/18 Urine Culture - Final, Complete NO GROWTH Assessment/Plan Assessment/Plan Assessment/Plan PSBO N/V COPD GERD Plan to clamp NGT and allow sips of clears, will hook NGT back up to suction in 6 hours and if she has less fluid than what she took in then can D/C NGT. Pt has some "junky" upper respiratory sounds; will have RT do some treatments and work with pt (add IS use). Pt abdomen is not distended so hopefully she is slowly improving. No need to do SBFT at this time as it looks like she is getting better, WBC normal at 10.5. Pt encouraged to ambulate as this will help with return of bowel fxn. Clinical Quality Measures DVT/VTE Risk/Contraindication: Risk Factor Score Per Nursin RFS Level Per Nursing on Admit: 3=High TRUONG BOSS DO May 27, 2018 10:56
[2018-05-27 12:00] VITALS: BP 122/71
--- NOTE | 2018-05-27 12:35 | Progress Note (SOAP) ---
Subjective Subjective Date Seen by Provider: May 27, 2018 Time Seen by Provider: 12:29 73 yo F admitted for pSBO doing better now- nausea/vomiting have improved. passed some flatus and a small bowel movement She would like the NGT taken out. Denies fevers. Has increased phlegm. Review of Systems General: No Chills, No Night Sweats HEENT: No Head Aches, No Visual Changes Pulmonary: No Dyspnea, No Cough; Other Cardiovascular: No: Chest Pain, Palpitations Gastrointestinal: Abdominal Pain; No: Nausea, Vomiting Genitourinary: No Dysuria; Frequency Musculoskeletal: No: neck pain, shoulder pain Neurological: Weakness All Other Systems Reviewed All Other Systems Reviewed: Yes Objective Exam Vital Signs Vital Signs Date Time Temp Pulse Resp B/P (MAP) Pulse Ox O2 Delivery O2 Flow Rate FiO2 05/27/18 08:45 91 Nasal Cannula 2.00 05/27/18 08:14 91 Nasal Cannula 2.00 05/27/18 08:00 98.0 87 22 154/80 (104) 92 Nasal Cannula 2.00 05/27/18 04:03 98.6 71 18 133/71 (91) 95 Nasal Cannula 2.00 05/27/18 03:08 95 Nasal Cannula 2.00 05/27/18 00:35 97.9 77 16 117/70 (86) 95 Nasal Cannula 2.00 05/26/18 20:13 98.1 80 16 126/67 (86) 95 Nasal Cannula 2.00 05/26/18 19:33 96 Nasal Cannula 2.00 05/26/18 16:01 96.8 84 20 122/65 (84) 90 Nasal Cannula 2.00 I & O 05/27/18 07:00 Intake Total 2000 ml Output Total 1900 ml Balance 100 ml General Appearance: WD/WN Eyes: Bilateral Eye PERRL, Bilateral Eye EOMI HEENT: PERRL/EOMI, Other (NGT in place) Neck: Non Tender, Supple Respiratory: Chest Non Tender, No Accessory Muscle Use, No Respiratory Distress , Crackles (improves with coughing); No Wheezing Cardiovascular: Regular Rate, Rhythm, No Edema Gastrointestinal: Soft, Abnormal Bowel Sounds (improved bowel sounds), Tenderness Rectal: Deferred Back: No CVA Tenderness Extremity: Normal Range of Motion, Non Tender Neurologic/Psychiatric: Alert, Oriented x3, Normal Mood/Affect Skin: Normal Color, Warm/Dry Results Lab Laboratory Tests 05/27/18 07:55: White Blood Count 10.5, Red Blood Count 5.55, Hemoglobin 14.7, Hematocrit 47, Mean Corpuscular Volume 85, Mean Corpuscular Hemoglobin 27, Mean Corpuscular Hemoglobin Concent 31L, Red Cell Distribution Width 19.4H, Platelet Count 464H, Mean Platelet Volume 10.5H, Neutrophils (%) (Auto) 67, Lymphocytes (%) (Auto) 17 , Monocytes (%) (Auto) 13H, Eosinophils (%) (Auto) 2, Basophils (%) (Auto) 1, Neutrophils # (Auto) 7.0, Lymphocytes # (Auto) 1.8, Monocytes # (Auto) 1.4H, Eosinophils # (Auto) 0.2, Basophils # (Auto) 0.1, Sodium Level 141, Potassium Level 4.0, Chloride Level 111H, Carbon Dioxide Level 22, Anion Gap 8, Blood Urea Nitrogen 9, Creatinine 0.70, Estimat Glomerular Filtration Rate > 60, BUN/ Creatinine Ratio 13, Glucose Level 88, Calcium Level 8.9, Corrected Calcium 9.4 , Total Bilirubin 1.6H, Aspartate Amino Transf (AST/SGOT) 14, Alanine Aminotransferase (ALT/SGPT) 12, Alkaline Phosphatase 47, Total Protein 5.8L, Albumin 3.4 Microbiology 05/25/18 Urine Culture - Final, Complete NO GROWTH Assessment/Plan Assessment/Plan Admission Dx partial small bowel obstruction Assessment and Plan K56.6 partial small bowel obstruction- Dr. Montero consulted, IVF, ambulation , bowel rest, R11.2 nausea/vomiting- zofran prn (J44.9) Chronic obstructive pulmonary disease- controlled ; continue home inhalers. duoneb treatment for her congestion. (K21.9) Gastro-esophageal reflux disease- monitor (K44.9) Diaphragmatic hernia- likely contributes to GERD Dispo: pSBO has improved. close monitoring- monitor NGT -clamped for 6 hours - may remove if residual is less than intake after the 6 hours. Admission Dx partial small bowel obstruction Clinical Quality Measures Admission Status Admission Dx partial small bowel obstruction DVT/VTE Risk/Contraindication: Risk Factor Score Per Nursin RFS Level Per Nursing on Admit: 3=High JULIO CESAR HAJI MD May 27, 2018 12:35
[2018-05-27] MEDS: RT-ALBUTEROL/IPRATROPIUM 3 ML (DUONEB) VIAL INH SCH ×3 (14:29→22:36)
[2018-05-27 15:55] VITALS: BP 123/70
[2018-05-27] MEDS ORDERED: ENOXAPARIN 80 MG/0.8 ML (LOVENOX) SYR SC NR (19:00)
[2018-05-27 19:20] VITALS: BP 121/68
[2018-05-27] MEDS: RT-ADVAIR HFA 115/21 MCG PER PUFF IH SCH (19:27)
[2018-05-27] MEDS ORDERED: NON-FORMULARY MEDICATION 1 EA EA (Budesonide/Formoterol Fumarate (Symbicort 160-4.5 Mcg In IH SCH (21:00)
[2018-05-28] VITALS: BP 112/56
[2018-05-28] MEDS: RT-ALBUTEROL/IPRATROPIUM 3 ML (DUONEB) VIAL INH SCH ×6 (02:48→22:50)
[2018-05-28 04:00] VITALS: BP 110/65
[2018-05-28] MEDS: NS IV 1000 ML 1,000 ML IV SCH ×2 (06:25→18:16)
[2018-05-28] MEDS ORDERED: ENOXAPARIN 80 MG/0.8 ML (LOVENOX) SYR SC SCH (07:00)
[2018-05-28] MEDS: RT-ADVAIR HFA 115/21 MCG PER PUFF IH SCH ×2 (07:20→18:58)
[2018-05-28 08:11] VITALS: BP 131/63
[2018-05-28] MEDS: PANTOPRAZOLE 40 MG (PROTONIX) VIAL IV SCH (09:07)
--- NOTE | 2018-05-28 10:59 | Diagnostic Imaging Report ---
Exam: Right upper extremity venous Doppler ultrasound. Date: May 28, 2018. Indication: 73-year-old female, evaluation for right upper extremity deep venous thrombosis. Swelling of the right upper extremity. Comparison: None. Findings: The right internal jugular vein, right subclavian vein, and right axillary vein are patent. The right brachial vein is patent. There is echogenic material in the right basilic vein which does not demonstrate internal blood flow compatible with occlusive thrombus. The right radial vein is patent. The right ulnar vein is patent. Impression: 1. Occlusive thrombus in the basilic vein. 2. No additional right upper terminate venous thrombosis demonstrated. Dictated by: Dictated on workstation # [id number]
[2018-05-28 12:00] VITALS: BP 133/60
--- NOTE | 2018-05-28 12:06 | Progress Note (SOAP) ---
Subjective Date Seen by a Provider: May 28, 2018 Time Seen by a Provider: 10:10 Subjective/Events-last exam no nausea or vomiting. Passing flatus. Reports passing a small pellet of fecal material Review of Systems General: No Chills, No Night Sweats, No Fatigue, No Malaise HEENT: No Head Aches, No Eye Pain, No Ear Pain, No Dysphasia, No Sinus Congestion, No Post Nasal Drip, No Sore Throat Pulmonary: No Dyspnea, No Cough, No Pleuritic Chest Pain Cardiovascular: No: Chest Pain, Palpitations, Orthopnea, Paroxysmal Noc. Dyspnea, Edema, Lt Headedness Gastrointestinal: No: Nausea, Vomiting, Abdominal Pain, Diarrhea, Constipation , Melena, Hematochezia Genitourinary: No Dysuria, No Frequency, No Incontinence, No Hematuria, No Retention Musculoskeletal: No: other, neck pain, shoulder pain, arm pain, back pain, hand pain, leg pain, foot pain Neurological: No: Weakness, Numbness, Incoordination, Change in speech, Confusion, Seizures, Other Objective Exam Vital Signs Date Time Temp Pulse Resp B/P (MAP) Pulse Ox O2 Delivery O2 Flow Rate FiO2 05/28/18 11:36 92 Room Air 05/28/18 08:11 97.6 76 20 131/63 (85) 92 Room Air 05/28/18 08:00 Nasal Cannula 2.00 05/28/18 07:20 90 Room Air 05/28/18 04:00 99.3 81 18 110/65 (80) 93 Room Air 05/28/18 02:48 90 Room Air 05/28/18 00:00 99.6 83 18 112/56 (74) 90 Room Air 05/27/18 22:37 91 Room Air 05/27/18 20:00 Nasal Cannula 2.00 05/27/18 19:27 90 Room Air 05/27/18 19:20 99.3 77 18 121/68 (85) 92 Room Air 05/27/18 15:55 98.6 78 18 123/70 (87) 91 Nasal Cannula 2.00 05/27/18 14:30 91 Room Air I & O 05/28/18 07:00 Intake Total 1350 ml Output Total 550 ml Balance 800 ml Capillary Refill : Less Than 3 Seconds General Appearance: Anxious Neck: Normal Inspection Respiratory: Lungs Clear Cardiovascular: Regular Rate, Rhythm Gastrointestinal: non tender, soft Neurologic/Psychiatric: Alert, Oriented x3 Skin: Warm/Dry Results Lab Microbiology 05/25/18 Urine Culture - Final, Complete NO GROWTH Assessment/Plan Assessment/Plan Assess & Plan/Chief Complaint lady with recurrent partial small bowel obstruction, currently resolved. Will advance diet and possibly discharge tomorrow Final Diagnosis recurrent, partial small bowel obstruction Clinical Quality Measures DVT/VTE Risk/Contraindication: Risk Factor Score Per Nursin RFS Level Per Nursing on Admit: 3=High LUZ MARINA GONZALES MD May 28, 2018 12:06
--- NOTE | 2018-05-28 12:19 | Progress Note-Hospitalist ---
Subjective HPI/CC On Admission Date Seen by Provider: May 28, 2018 Time Seen by Provider: 11:15 Subjective/Events-last exam Last night RN had called me about the right arm that was significantly edematous and tender to touch Placed her on empiric Lovenox 1 MG/KG Q12 hrs and ordered a venous Doppler ultrasound for the morning biomedical equipment tech called me this am reporting extensive basilic vein with thrombosis and considering the extensive nature of this although it's not in the deep venous system I went ahead and discontinue the Lovenox but started Eliquis 5 MG twice daily Patient feels much better and the arm is much improved No bowel movement but passing gas IV fluids maintained but will decrease rate to 70 from 100 mL an hour Coarse breath sounds noted and she doesn't have a history of any bronchitis but she does have COPD on inhalers and does not use oxygen but she is requiring oxygen due to low O2 sat Will check chest x-ray to make sure this is not a pneumonia She is a smoker Recommended to use incentive spirometer more Receiving nebulizer treatments Will initiate very low dose IV steroids for exacerbation of COPD along with giving 1 dose of Lasix in case volume overload is a factor Review of Systems General: Fatigue Pulmonary: Cough Gastrointestinal: Abdominal Pain, Constipation Musculoskeletal: arm pain Objective Exam Vital Signs Vital Signs Date Time Temp Pulse Resp B/P (MAP) Pulse Ox O2 Delivery O2 Flow Rate FiO2 05/28/18 11:36 92 Room Air 05/28/18 08:11 97.6 76 20 131/63 (85) 05/28/18 08:00 2.00 Capillary Refill : Less Than 3 Seconds General Appearance: No Apparent Distress, WD/WN, Chronically ill Respiratory: Chest Non Tender, No Accessory Muscle Use, No Respiratory Distress , Crackles, Decreased Breath Sounds, Wheezing Cardiovascular: Regular Rate, Rhythm, No Edema, No Gallop, No JVD, No Murmur, Normal Peripheral Pulses Extremity: Normal Capillary Refill, Normal Inspection, Normal Range of Motion, Non Tender, No Calf Tenderness, No Pedal Edema, Swelling (right arm edematous but improved but no erythema) Results/Procedures Lab Patient resulted labs reviewed. Assessment/Plan Assessment and Plan Assess & Plan/Chief Complaint Assessment: Small bowel obstruction managing conservatively appreciate general surgery recommendations Acute right extensive basilic vein thrombosis right arm confirmed on ultrasound placed on Lovenox then transitioned to Eliquis Coarse breath sounds on exam today with history of COPD on inhaled corticosteroid requiring oxygen and nebulized treatments we'll check chest x-ray Recent UTI with antibiotic Smoker Plan: Check chest x-ray Continue nebulizer treatments Smoking cessation Low dose of IV steroids for exacerbation of COPD DC Lovenox Start Eliquis twice daily 1 dose of Lasix in case volume overload is a factor with coarse breath sounds today Diagnosis/Problems Diagnosis/Problems (1) Partial small bowel obstruction Status: Acute (2) COPD exacerbation Status: Acute (3) Acute thrombosis of right basilic vein Status: Acute (4) Arm pain, right Status: Acute (5) Smoker Status: Chronic Clinical Quality Measures DVT/VTE Risk/Contraindication: Risk Factor Score Per Nursin RFS Level Per Nursing on Admit: 3=High FERNANDO VERA DO May 28, 2018 12:19
[2018-05-28] MEDS ORDERED: FUROSEMIDE 40 MG/4 ML INJ (LASIX) IVP NR (12:29)
[2018-05-28] MEDS ORDERED: methylPREDNISolone 125 MG (Solu-MEDROL) VIAL IVP NR (12:30)
--- NOTE | 2018-05-28 15:21 | Diagnostic Imaging Report ---
EXAMINATION: PA and lateral chest at 02:41 p.m. INDICATION: Cough. FINDINGS: In the interval since the prior exam of 05/25/2018, the NG line has been removed. The elevated right hemidiaphragm and the compressive atelectasis in the right mid lung seen previously are again evident and no different; however, there has been an increase in the density in the left retrocardiac region since the prior study and I suspect that there is now an element of pneumonia/atelectasis in this region. The upper lungs are clear. The mediastinum is not widened. The heart is stable in size. The osseous structures are intact. IMPRESSION: 1. The appearance of the chest has worsened since the prior study as left lower lobe pneumonia/atelectasis has developed. A follow-up exam will be recommended for continued evaluation. 2. The NG line seen previously has been removed. Dictated by: Dictated on workstation # [id number]
[2018-05-28 15:48] VITALS: BP 117/59
[2018-05-28] MEDS: methylPREDNISolone 125 MG (Solu-MEDROL) VIAL IVP SCH ×2 (18:15→23:47)
[2018-05-28 19:15] VITALS: BP 127/60
[2018-05-28] MEDS: APIXABAN 5 MG (ELIQUIS) TABLET PO SCH (21:03)
[2018-05-29 00:25] VITALS: BP 128/89
[2018-05-29] MEDS: RT-ALBUTEROL/IPRATROPIUM 3 ML (DUONEB) VIAL INH SCH ×6 (02:16→22:44)
[2018-05-29 04:22] VITALS: BP 137/71
[2018-05-29 04:39] LABS: BASOPHILS % (AUTO) 0 % (0-10); EOSINOPHILS % (AUTO) 0 % (0-10); HEMATOCRIT 42 % (35-52); HEMOGLOBIN 13.5 G/DL (11.5-16.0); LYMPHOCYTES # (AUTO) 0.6 X 10^3 (1.0-4.0); LYMPHOCYTES % (AUTO) 7 % (12-44); MEAN CORPUSCULAR HEMOGLOBIN 26 PG (25-34); MEAN CORPUSCULAR HGB CONC 32 G/DL (32-36); MEAN CORPUSCULAR VOLUME 83 FL (80-99); MEAN PLATELET VOLUME 11.1 FL (7.4-10.4); MONOCYTES # (AUTO) 0.4 X 10^3 (0.0-1.0); MONOCYTES % (AUTO) 4 % (0-12); NEUTROPHILS # (AUTO) 7.9 X 10^3 (1.8-7.8); NEUTROPHILS % (AUTO) 89 % (42-75); PLATELET COUNT 412 10^3/uL (130-400); RED BLOOD COUNT 5.11 10^6/uL (4.35-5.85); WHITE BLOOD COUNT 8.9 10^3/uL (4.3-11.0)
[2018-05-29 04:47] LABS: SMEAR SCAN COMMENT YES
[2018-05-29 04:57] LABS: ALANINE AMINOTRANSFERASE 22 U/L (0-55); ALBUMIN 3.6 GM/DL (3.2-4.5); ALKALINE PHOSPHATASE 52 U/L (40-136); BILIRUBIN,TOTAL 0.9 MG/DL (0.1-1.0); BUN/CREATININE RATIO 14; CALCIUM 9.5 MG/DL (8.5-10.1); CARBON DIOXIDE 18 MMOL/L (21-32); CHLORIDE 109 MMOL/L (98-107); CREATININE SERUM 0.65 MG/DL (0.60-1.30); GFR ESTIMATED > 60; GLUCOSE 155 MG/DL (70-105); POTASSIUM 3.5 MMOL/L (3.6-5.0); SODIUM 139 MMOL/L (135-145); TOTAL PROTEIN 6.3 GM/DL (6.4-8.2)
[2018-05-29] MEDS: methylPREDNISolone 125 MG (Solu-MEDROL) VIAL IVP SCH ×3 (06:27→20:51)
[2018-05-29] MEDS: RT-ADVAIR HFA 115/21 MCG PER PUFF IH SCH ×2 (07:24→19:23)
[2018-05-29 08:00] VITALS: BP 156/71
[2018-05-29] MEDS: PANTOPRAZOLE 40 MG (PROTONIX) TAB PO SCH (08:48)
[2018-05-29] MEDS: APIXABAN 5 MG (ELIQUIS) TABLET PO SCH ×2 (08:48→20:52)
[2018-05-29] MEDS: NS IV 1000 ML 1,000 ML IV SCH (10:45)
--- NOTE | 2018-05-29 11:28 | Progress Note-Hospitalist ---
Subjective HPI/CC On Admission Date Seen by Provider: May 29, 2018 Time Seen by Provider: 11:00 Subjective/Events-last exam No BM yet except for a few flecks Less abdominal pain Reviewed chest x-ray and since there is no fever and no elevated white count this is indeed atelectasis Overall lungs are much improved due to steroid effect Maintained on Eliquis and no bleeding issues Review of Systems Pulmonary: Cough Objective Exam Vital Signs Vital Signs Date Time Temp Pulse Resp B/P (MAP) Pulse Ox O2 Delivery O2 Flow Rate FiO2 05/29/18 11:26 95 Nasal Cannula 2.00 05/29/18 08:00 97.8 50 18 156/71 (99) Capillary Refill : Less Than 3 Seconds General Appearance: No Apparent Distress, WD/WN, Chronically ill Respiratory: Chest Non Tender, No Accessory Muscle Use, No Respiratory Distress , Crackles (subtle and much improved) Neurologic/Psychiatric: Alert, Oriented x3, No Motor/Sensory Deficits, Normal Mood/Affect Results/Procedures Lab Laboratory Tests 05/29/18 02:45 05/29/18 03:40 Patient resulted labs reviewed. Assessment/Plan Assessment and Plan Assess & Plan/Chief Complaint Assessment: Small bowel obstruction managing conservatively appreciate general surgery recommendations Acute right extensive basilic vein thrombosis right arm confirmed on ultrasound placed on Lovenox then transitioned to Eliquis Coarse breath sounds on exam yesterday with history of COPD on inhaled corticosteroid requiring oxygen and nebulized treatments and ATX on CXR w/o fever or elevated wbc Recent UTI with antibiotic Smoker Plan: Check chest x-ray in am Continue nebulizer treatments Smoking cessation Low dose of IV steroids for exacerbation of COPD DC Lovenox Start Eliquis twice daily Diagnosis/Problems Diagnosis/Problems (1) Partial small bowel obstruction Status: Acute (2) COPD exacerbation Status: Acute (3) Acute thrombosis of right basilic vein Status: Acute (4) Arm pain, right Status: Acute (5) Smoker Status: Chronic Clinical Quality Measures DVT/VTE Risk/Contraindication: Risk Factor Score Per Nursin RFS Level Per Nursing on Admit: 3=High FERNANDO VERA DO May 29, 2018 11:28
[2018-05-29 12:00] VITALS: BP 149/71
[2018-05-29] MEDS: BENZONATATE 100 MG (TESSALON) CAPSULE PO SCH ×2 (12:13→20:52)
--- NOTE | 2018-05-29 13:39 | Progress Note (SOAP) ---
Subjective Date Seen by a Provider: May 29, 2018 Time Seen by a Provider: 11:25 Subjective/Events-last exam reports a few more bowel movements and passing flatus. No nausea or abdominal pain. Review of Systems General: No Chills, No Night Sweats, No Fatigue, No Malaise HEENT: No Head Aches, No Eye Pain, No Ear Pain, No Dysphasia, No Sinus Congestion, No Post Nasal Drip, No Sore Throat Pulmonary: No Dyspnea, No Cough, No Pleuritic Chest Pain Cardiovascular: No: Chest Pain, Palpitations, Orthopnea, Paroxysmal Noc. Dyspnea, Edema, Lt Headedness, Other Gastrointestinal: No: Nausea, Vomiting, Abdominal Pain, Diarrhea, Constipation , Melena, Hematochezia Genitourinary: No Dysuria, No Frequency, No Incontinence, No Hematuria, No Retention Musculoskeletal: No: other, neck pain, shoulder pain, arm pain, back pain, hand pain, leg pain, foot pain Neurological: No: Weakness, Numbness, Incoordination, Change in speech, Confusion, Seizures, Other Objective Exam Vital Signs Date Time Temp Pulse Resp B/P (MAP) Pulse Ox O2 Delivery O2 Flow Rate FiO2 05/29/18 12:00 98.1 59 20 149/71 (97) 93 Room Air 05/29/18 11:26 95 Nasal Cannula 2.00 05/29/18 08:00 97.8 50 18 156/71 (99) 94 Room Air 05/29/18 08:00 Nasal Cannula 1.50 05/29/18 07:24 93 Room Air 05/29/18 04:22 98.7 62 18 137/71 (93) 92 Room Air 05/29/18 00:25 97.2 71 18 128/89 (102) 93 Room Air 05/28/18 20:00 Nasal Cannula 1.50 05/28/18 19:15 97.8 90 20 127/60 (82) 90 Nasal Cannula 1.50 05/28/18 18:58 93 Nasal Cannula 1.50 05/28/18 15:48 97.8 86 20 117/59 (78) 88 Nasal Cannula 1.50 05/28/18 14:36 90 Room Air I & O 05/29/18 07:00 Intake Total 2820 ml Output Total 3050 ml Balance -230 ml Capillary Refill : Less Than 3 Seconds General Appearance: Anxious Neck: Normal Inspection Respiratory: Lungs Clear Cardiovascular: Regular Rate, Rhythm Gastrointestinal: non tender, soft Neurologic/Psychiatric: Alert, Oriented x3 Skin: Warm/Dry Results Lab Laboratory Tests 05/29/18 02:45: Sodium Level 139, Potassium Level 3.5L, Chloride Level 109H, Carbon Dioxide Level 18L, Anion Gap 12, Blood Urea Nitrogen 9, Creatinine 0.65, Estimat Glomerular Filtration Rate > 60, BUN/Creatinine Ratio 14, Glucose Level 155H, Calcium Level 9.5, Corrected Calcium 9.8, Total Bilirubin 0.9, Aspartate Amino Transf (AST/SGOT) 32, Alanine Aminotransferase (ALT/SGPT) 22, Alkaline Phosphatase 52, Total Protein 6.3L, Albumin 3.6 05/29/18 03:40: White Blood Count 8.9, Red Blood Count 5.11, Hemoglobin 13.5, Hematocrit 42, Mean Corpuscular Volume 83, Mean Corpuscular Hemoglobin 26, Mean Corpuscular Hemoglobin Concent 32, Red Cell Distribution Width 18.0H, Platelet Count 412H, Mean Platelet Volume 11.1H, Neutrophils (%) (Auto) 89H, Lymphocytes (%) (Auto) 7L, Monocytes (%) (Auto) 4, Eosinophils (%) (Auto) 0, Basophils (%) (Auto) 0, Neutrophils # (Auto) 7.9H, Lymphocytes # (Auto) 0.6L, Monocytes # (Auto) 0.4, Eosinophils # (Auto) 0.0, Basophils # (Auto) 0.0, Smear Scan YES Microbiology 05/25/18 Urine Culture - Final, Complete NO GROWTH Assessment/Plan Assessment/Plan Assess & Plan/Chief Complaint lady with recurrent partial small bowel obstruction, currently resolved. Will advance diet and possibly discharge tomorrow. lady with a resolved partial small bowel obstruction. Dye couldn't be advanced and she could be discharged Final Diagnosis recurrent partial small bowel obstruction, resolved. Clinical Quality Measures DVT/VTE Risk/Contraindication: Risk Factor Score Per Nursin RFS Level Per Nursing on Admit: 3=High LUZ MARINA GONZALES MD May 29, 2018 13:39
[2018-05-29 15:15] VITALS: BP 127/73
[2018-05-29 19:10] VITALS: BP 135/66
[2018-05-30] VITALS: BP 134/59
[2018-05-30] MEDS: RT-ALBUTEROL/IPRATROPIUM 3 ML (DUONEB) VIAL INH SCH ×3 (02:37→11:16)
[2018-05-30 04:00] VITALS: BP 137/65
[2018-05-30 06:07] LABS: BASOPHILS % (AUTO) 0 % (0-10); EOSINOPHILS % (AUTO) 0 % (0-10); HEMATOCRIT 42 % (35-52); HEMOGLOBIN 13.9 G/DL (11.5-16.0); LYMPHOCYTES # (AUTO) 0.9 X 10^3 (1.0-4.0); LYMPHOCYTES % (AUTO) 6 % (12-44); MEAN CORPUSCULAR HEMOGLOBIN 27 PG (25-34); MEAN CORPUSCULAR HGB CONC 33 G/DL (32-36); MEAN CORPUSCULAR VOLUME 82 FL (80-99); MEAN PLATELET VOLUME 11.1 FL (7.4-10.4); MONOCYTES # (AUTO) 1.4 X 10^3 (0.0-1.0); MONOCYTES % (AUTO) 9 % (0-12); NEUTROPHILS # (AUTO) 12.9 X 10^3 (1.8-7.8); NEUTROPHILS % (AUTO) 85 % (42-75); PLATELET COUNT 440 10^3/uL (130-400); RED BLOOD COUNT 5.15 10^6/uL (4.35-5.85); WHITE BLOOD COUNT 15.1 10^3/uL (4.3-11.0)
[2018-05-30 06:27] LABS: ALANINE AMINOTRANSFERASE 47 U/L (0-55); ALBUMIN 3.6 GM/DL (3.2-4.5); ALKALINE PHOSPHATASE 60 U/L (40-136); BILIRUBIN,TOTAL 0.7 MG/DL (0.1-1.0); BUN/CREATININE RATIO 17; CALCIUM 9.6 MG/DL (8.5-10.1); CARBON DIOXIDE 21 MMOL/L (21-32); CHLORIDE 108 MMOL/L (98-107); GFR ESTIMATED > 60; GLUCOSE 128 MG/DL (70-105); POTASSIUM 3.8 MMOL/L (3.6-5.0); SODIUM 139 MMOL/L (135-145); TOTAL PROTEIN 6.1 GM/DL (6.4-8.2)
[2018-05-30 06:40] LABS: LYMPHOCYTES % (MANUAL) 5 %; MONOCYTES % (MANUAL) 5 %; NEUTROPHILS % (MANUAL) 90 %
[2018-05-30] MEDS: RT-ADVAIR HFA 115/21 MCG PER PUFF IH SCH (07:28)
--- NOTE | 2018-05-30 08:17 | Diagnostic Imaging Report ---
PATIENT HISTORY: Shortness of breath, rales. TECHNIQUE: Two views of the chest. COMPARISON: 05/28/2018. FINDINGS: There is stable elevation of the right hemidiaphragm which appears unchanged. Airspace opacities in the left lung base appear improved compared to the prior exam, with linear bibasilar opacities which likely represent atelectasis. There is a trace left pleural effusion. The cardiac silhouette appears stable in size. No pneumothorax is seen. There are degenerative changes in the shoulders and spine. IMPRESSION: 1. Bibasilar linear opacities, most likely atelectasis. Aeration appears significantly improved in the left lung base. 2. Trace left pleural effusion. Dictated by: Dictated on workstation # [id number]
[2018-05-30 08:20] VITALS: BP 157/74
[2018-05-30] MEDS: APIXABAN 5 MG (ELIQUIS) TABLET PO SCH (08:45)
[2018-05-30] MEDS: PANTOPRAZOLE 40 MG (PROTONIX) TAB PO SCH (08:45)
[2018-05-30] MEDS: methylPREDNISolone 125 MG (Solu-MEDROL) VIAL IVP SCH (08:45)
[2018-05-30] MEDS: BENZONATATE 100 MG (TESSALON) CAPSULE PO SCH ×2 (08:45→13:40)
[2018-05-30 12:00] VITALS: BP 149/72
[2018-05-30] MEDS ORDERED: APIX5TAB PO (12:55)
[2018-05-30] MEDS ORDERED: NITR100C PO (12:55)
[2018-05-30] MEDS ORDERED: DEXA4TAB PO (12:55)
--- NOTE | 2018-05-30 12:58 | Discharge Inst-Simple/Standard ---
Discharge Inst-Standard Patient Instructions/Follow Up Plan of Care/Instructions/FU: follow up with surgeon in 1-2 weeks starting nitrofurantoin to cover for uti for 7 days complete 3 days of dexamethasone for respiratory continue eliquis for 1 month for right upper arm venous thrombosis Activity as Tolerated: Yes Discharge Diet: No Restrictions, Eat Small Frequent Meals Return to The Hospital For: new concerns. Planned Outpatient Orders/Ref. Pneu Vac Indicated: Yes JULIO CESAR HAJI MD May 30, 2018 12:58
--- NOTE | 2018-05-30 13:09 | Discharge Summary ---
Diagnosis/Chief Complaint Date of Admission May 26, 2018 at 11:00 Date of Discharge May 30, 2018 Reason Hospital Visit 73 yo F admitted with a partial small bowel obstruction noted on CT- Last episode was March. She feels like she has some sort of episode monthly. This abdominal pain started yesterday and has quickly gotten worse. She usually waits longer but it is a little different this time as she has not improved and she is vomiting still with the NGT in place. -She is more concerned. Last bowel movement was yesterday. Pt admitted for further evaluation. She follows with Dr. Patel and Dr. Guy in [place], [place] and was actually going to go there but the abdominal pain was severe enough she decided to go to [facility]. Denies any fevers. Discharge Summary Hospital Course Hospital Course 73 yo F admitted for pSBO which has resolved with conservatory measures. She has developed a right arm superficial venous thrombosis- Her respiratory status improved with breathing treatments and steroids- she is back to room air. This AM she reports she was ready to go home yesterday but hospitalist would not make it back in to the hospital to discharge her. Over the weekend patient was leaving the floor to smoke - pt was informed not to do this as it is not safe and not good for her overall health specifically for this admit respiratory, GI, and vascular. follow up with surgeon in 1-2 weeks starting nitrofurantoin to cover for uti for 7 days complete 3 days of dexamethasone for respiratory- COPD exacerbation. continue eliquis for 1 month for right upper arm venous thrombosis Patient is considering switching to Dr. Montero as her surgeon as he has done such a good job her last 2 admits. Labs Laboratory Tests 05/29/18 02:45: Potassium Level 3.5L, Chloride Level 109H, Carbon Dioxide Level 18L, Glucose Level 155H, Total Protein 6.3L 05/29/18 03:40: Red Cell Distribution Width 18.0H, Platelet Count 412H, Mean Platelet Volume 11.1H, Neutrophils (%) (Auto) 89H, Lymphocytes (%) (Auto) 7L, Neutrophils # ( Auto) 7.9H, Lymphocytes # (Auto) 0.6L 05/30/18 05:25: Chloride Level 108H, Glucose Level 128H, Total Protein 6.1L, Red Cell Distribution Width 19.0H, Platelet Count 440H, Mean Platelet Volume 11.1H, Neutrophils (%) (Auto) 85H, Lymphocytes (%) (Auto) 6L, Neutrophils # (Auto) 12.9H, Lymphocytes # (Auto) 0.9L, White Blood Count 15.1H, Monocytes # (Auto) 1.4H, Aspartate Amino Transf (AST/SGOT) 46H Procedures None. Discharge Physical Examination Allergies: Coded Allergies: atropine (Verified Allergy, Unknown, 07/11/17) codeine (Verified Allergy, Unknown, 07/11/17) diphenoxylate (Verified Allergy, Unknown, 07/11/17) meperidine (Verified Allergy, Unknown, 07/11/17) Vitals & I&Os Vital Signs Date Time Temp Pulse Resp B/P (MAP) Pulse Ox O2 Delivery O2 Flow Rate FiO2 05/30/18 08:20 97.7 58 20 157/74 (101) 94 Room Air 05/29/18 20:00 1.50 General Appearance: Alert, Oriented X3, Cooperative HEENT: Atraumatic Respiratory: Clear to Auscultation Cardiovascular: Regular Rate Abdominal: Normal Bowel Sounds, Soft Extremities: Other (right arm firm cord in arm- superficial venous thrombosis.) Skin: No Rashes Discharge Home Medications Reviewed and agree with Discharge Medication list on patient's Discharge Instruction sheet Instructions to Patient/Family Please see electronic discharge instructions given to patient. Clinical Quality Measures DVT/VTE Risk/Contraindication: Risk Factor Score Per Nursin RFS Level Per Nursing on Admit: 3=High JULIO CESAR HAJI MD May 30, 2018 13:09
--- NOTE | 2018-05-30 14:14 | Progress Note ---
Subjective Time Seen by a Provider: 12:03 Subjective/Events-last exam Pt seen and examined about to go home. She states having some small BM's and flatus, still rates it as "so-so". No N/V. She is asking if I can take over her care. Review of Systems General: No Chills, No Night Sweats Pulmonary: No Dyspnea, No Cough Cardiovascular: No: Chest Pain Gastrointestinal: No: Nausea, Vomiting, Diarrhea, Hematochezia Objective Exam Vital Signs Date Time Temp Pulse Resp B/P (MAP) Pulse Ox O2 Delivery O2 Flow Rate FiO2 05/30/18 12:00 96.6 71 18 149/72 (97) 91 Room Air 05/30/18 08:20 97.7 58 20 157/74 (101) 94 Room Air 05/30/18 08:00 Room Air 05/30/18 04:00 98.0 58 20 137/65 (89) 94 Room Air 05/30/18 00:00 97.3 55 18 134/59 (84) 92 Room Air 05/29/18 22:44 93 Room Air 05/29/18 20:00 Nasal Cannula 1.50 05/29/18 19:24 94 Room Air 05/29/18 19:10 97.9 56 20 135/66 (89) 93 Room Air 05/29/18 15:15 98.3 60 20 127/73 (91) 92 Room Air I & O 05/30/18 07:00 Intake Total 15863 ml Output Total 1725 ml Balance 9654 ml Capillary Refill : Less Than 3 Seconds General Appearance: No Apparent Distress, WD/WN HEENT: PERRL/EOMI Neck: Normal Inspection Respiratory: Lungs Clear, Normal Breath Sounds Cardiovascular: Regular Rate, Rhythm, No Murmur Gastrointestinal: non tender, soft Extremity: Normal Capillary Refill, Normal Inspection, Normal Range of Motion, Non Tender, No Calf Tenderness, No Pedal Edema, Swelling (right arm edematous but improved but no erythema) Neurologic/Psychiatric: Alert, Oriented x3 Skin: Warm/Dry Results Lab Laboratory Tests 05/30/18 05:25: White Blood Count 15.1H, Red Blood Count 5.15, Hemoglobin 13.9, Hematocrit 42, Mean Corpuscular Volume 82, Mean Corpuscular Hemoglobin 27, Mean Corpuscular Hemoglobin Concent 33, Red Cell Distribution Width 19.0H, Platelet Count 440H, Mean Platelet Volume 11.1H, Neutrophils (%) (Auto) 85H, Lymphocytes (%) (Auto) 6L, Monocytes (%) (Auto) 9, Eosinophils (%) (Auto) 0, Basophils (%) (Auto) 0, Neutrophils # (Auto) 12.9H, Lymphocytes # (Auto) 0.9L, Monocytes # (Auto) 1.4H, Eosinophils # (Auto) 0.0, Basophils # (Auto) 0.0, Neutrophils % (Manual) 90, Lymphocytes % (Manual) 5, Monocytes % (Manual) 5, Sodium Level 139, Potassium Level 3.8, Chloride Level 108H, Carbon Dioxide Level 21, Anion Gap 10, Blood Urea Nitrogen 12, Creatinine 0.70, Estimat Glomerular Filtration Rate > 60, BUN/ Creatinine Ratio 17, Glucose Level 128H, Calcium Level 9.6, Corrected Calcium 9.9, Total Bilirubin 0.7, Aspartate Amino Transf (AST/SGOT) 46H, Alanine Aminotransferase (ALT/SGPT) 47, Alkaline Phosphatase 60, Total Protein 6.1L, Albumin 3.6 Microbiology 05/25/18 Urine Culture - Final, Complete NO GROWTH Assessment/Plan Assessment/Plan Assessment/Plan PSBO -resolved Pt will be D/C'd and follow up in my office in 2 weeks. I told her I would be happy to take over her care. We went over UTI, renal function, and PSBO; she is concerned about being in the hospital once a month with same problems. Once she comes to office and signs records release we will get all old studies (may need to do SBFT because she hasn't had one with these 2 admissions) and then go over them with her and discuss next step. Clinical Quality Measures DVT/VTE Risk/Contraindication: Risk Factor Score Per Nursin RFS Level Per Nursing on Admit: 3=High TRUONG BOSS DO May 30, 2018 14:14
[2018-05-30 14:20] VITALS: BP 149/72
== END 2018-05-30 14:20 | disposition home or self-care (01) | DRG 389 ==
LOC: EDUNIT# 15:34 → ER 15:35 → UNDOADMOB 17:57 → 4TH 17:57 → INTOOBSV 05-26 11:00 → OBSVTOIN 05-26 11:00 → UNDODISIN 05-30 14:20
PROVIDERS: ADMIT Surgery; ATTEND Surgery
PROC: 0D9670Z Drainage of Stomach with Drainage Device, Via Natural or Artificial Opening (ICD-10-PCS; principal; 2018-05-26)
DX: K56.690 Other partial intestinal obstruction (principal); I82.611 Acute embolism and thrombosis of superficial veins of right upper extremity; J98.11 Atelectasis; J43.9 Emphysema, unspecified; K44.9 Diaphragmatic hernia without obstruction or gangrene; K21.9 Gastro-esophageal reflux disease without esophagitis; F17.210 Nicotine dependence, cigarettes, uncomplicated; Z87.19 Personal history of other diseases of the digestive system
CPT/HCPCS: 36415; 71045; 71046; 74177; 80053; 81000; 82150; 83690; 85007; 85025; 85027; 87088; 94640; 94664; 94760; 96361; 96374; 96375; 96376; G0378

== ENCOUNTER → 2018-06-08 | Outpatient (CLI) | payer MEDICARE, OTHER ==
[~2018-06-08] MED LIST changes: +APIX5TAB PO; +BARIUM SUSPENSION 105% (LIQUID POLIBAR PLUS) 240 ML/DOSE PO ONE; +DEXA4TAB PO; +NITR100C PO
--- NOTE | 2018-06-10 09:35 | Diagnostic Imaging Report ---
EXAM: Small bowel exam INDICATION: Abdominal pain The preliminary film was unremarkable for an acute abnormality. The patient swallowed the contrast material without difficulty. The transit time through the small bowel was approximately 3 hours (normal 30 minutes to 3 hours). There is no focal area of narrowing or dilatation and there is no sign of any mass effect on the small bowel. The terminal ileum, where visualized is unremarkable. There does appear to be a large roughly 6 x 7 CM hiatal hernia. IMPRESSION: 1. There is no evidence for obstruction of the small bowel. The small bowel motility is somewhat sluggish, however. 2. There is no focal abnormality involving the small bowel. 3. There is a large hiatal hernia. Dictated by: Dictated on workstation # [id number]
== END ==
LOC: RAD 07:52
PROVIDERS: ATTEND Internal Medicine Gastroenterology
DX: K44.9 Diaphragmatic hernia without obstruction or gangrene (principal)
CPT/HCPCS: 74250

== ENCOUNTER 2019-12-26 17:30 | Emergency (ER) | payer MEDICARE, OTHER ==
[~2019-12-26] VITALS: Ht 160 cm; Wt 63.6 kg
[~2019-12-26 17:30] MED LIST changes: -BARIUM SUSPENSION 105% (LIQUID POLIBAR PLUS) 240 ML/DOSE PO ONE; -OMEP20CA12 PO; +OMEP20CA18 PO
--- NOTE | 2019-12-26 17:38 | ED Upper Extremity ---
General Stated Complaint: FINGER LACERATION Source: patient Exam Limitations: no limitations History of Present Illness Date Seen by Provider: Dec 26, 2019 Time Seen by Provider: 17:38 Initial Comments Laceration to the pad of the left pointer finger from a knife just prior to arrival at home. Tetanus is up-to-date Onset: this evening Severity: moderate Pain/Injury Location: left 2nd finger Method of Injury: unknown Modifying Factors: Worse With Movement Allergies and Home Medications Allergies Coded Allergies: atropine (Verified Allergy, Unknown, 07/11/17) codeine (Verified Allergy, Unknown, 07/11/17) diphenoxylate (Verified Allergy, Unknown, 07/11/17) meperidine (Verified Allergy, Unknown, 07/11/17) Home Medications Apixaban 5 Mg Tablet, 5 MG PO BID Prescribed by: JULIO CESAR HAJI on 05/30/18 1255 Budesonide/Formoterol Fumarate 10.2 Gm Hfa.aer.ad, 2 PUFF IH BID, (Reported) Dexamethasone 4 Mg Tablet, 8 MG PO DAILY Prescribed by: JULIO CESAR HAJI on 05/30/18 1255 Nitrofurantoin Macrocrystal 100 Mg Capsule, 100 MG PO BID Prescribed by: JULIO CESAR HAJI on 05/30/18 1255 Pantoprazole Sodium 40 Mg Tablet.dr, 40 MG PO DAILY, (Reported) Patient Home Medication List Home Medication List Reviewed: Yes Review of Systems Constitutional: see HPI EENTM: see HPI Respiratory: no symptoms reported Cardiovascular: no symptoms reported Genitourinary: no symptoms reported Musculoskeletal: no symptoms reported Skin: no symptoms reported Psychiatric/Neurological: No Symptoms Reported Past Rosrons-Cdcxdm-Wbzejw Hx Patient Social History Alcohol Beverage of Choice: Beer Type Used: Cigarettes 2nd Hand Smoke Exposure: Yes Recent Foreign Travel: No Contact w/Someone Who Travel: No Recent Hopitalizations: No Seasonal Allergies Seasonal Allergies: No Past Medical History Surgeries: Yes (hemrroid,DNC,CERCLAGE) Abdominal, Section Respiratory: Yes COPD, Emphysema Currently Using CPAP: No Currently Using BIPAP: No Cardiac: No Neurological: No Female Reproductive Disorders: Denies Genitourinary: No Gastrointestinal: Yes Colitis, Obstructive Bowel, Hiatal Hernia Musculoskeletal: No Endocrine: No HEENT: No Loss of Vision: Denies Hearing Impairment: Denies Cancer: No Psychosocial: No Integumentary: No Blood Disorders: No Family Medical History Cardiovascular disease 20 FATHER Heart Disease Physical Exam Vital Signs Vital Signs - First Documented 12/26/19 17:34 Temp 36.6 Pulse 75 Resp 18 B/P (MAP) 145/85 (105) Pulse Ox 96 Capillary Refill : Height, Weight, BMI Height: 5'1.00" Weight: 144lbs. 3.0oz. 65.454184tn; 27.2 BMI Method:Stated General Appearance: WD/WN, no apparent distress Respiratory: no respiratory distress, no accessory muscle use Shoulder: normal inspection, non-tender Elbow/Forearm: normal inspection, non-tender Wrist: Yes normal inspection, Yes non-tender Hand: Left, laceration Neurologic/Psychiatric: alert, normal mood/affect, oriented x 3 Skin: normal color, warm/dry (1cm to pad of left pointer finger. ) Procedures/Interventions Wound Location: Upper Extremities Wound Length (cm): 1 Wound's Depth, Shape: linear Irrigated w/ Saline (ccs): 20 Anesthesia: 1% Lidocaine Volume Anesthetic (ccs): 1 Suture: Prolene Suture Size: 5-0 Number of Sutures: 5 Layer Closure?: 1 Number Deep Layer Sutures: 0 Progress/Results/Core Measures Results/Orders My Orders Orders - SHANICE AGUIAR APRN Lidocaine 1% Inj 20 Ml (Xylocaine 1% Inj (12/26/19 17:45) Vital Signs/I&O 12/26/19 17:34 Temp 36.6 Pulse 75 Resp 18 B/P (MAP) 145/85 (105) Pulse Ox 96 Departure Impression Primary Impression: Finger laceration Qualified Codes: S61.218A - Laceration without foreign body of other finger without damage to nail, initial encounter Disposition: 01 HOME, SELF-CARE Condition: Stable Departure-Patient Inst. Decision time for Depature: 17:59 Referrals: JULIO CESAR HAJI MD (PCP/Family) Primary Care Physician Patient Instructions: Laceration Repair With Stitches (DC) Add. Discharge Instructions: 1. You can shower leg water and over the starting tomorrow. Return to ER for any signs of infection such as redness or swelling. Otherwise return to the emergency room in about 10 days to have the stitches removed. SHANICE AGUIAR APRN Dec 26, 2019 17:38
[2019-12-26] MEDS ORDERED: LIDOCAINE 1% INJ 20 ML 20 ML VIAL INJ ONE (17:45)
[2019-12-26 18:12] VITALS: BP 145/85
--- NOTE | 2019-12-26 18:14 | NUR ---
PATIENT VOICED UNDERSTANDING OF CARE OF DRESSING.
--- OUTSIDE RECORDS SUMMARY | 2019-12-26 20:42 | XMS REPORT | Continuity of Care Document ---
Author Organization Unknown Address Unknown Phone Unavailable Allergies Active Description Code Type Severity Reaction Onset Reported/Identified Relationship to Patient Clinical Status Yes atropine [id number] Drug Allergy Unknown N/A 07/11/2017 Yes codeine [id number] Drug Allergy Unknown N/A 07/11/2017 Yes diphenoxylate [id number] Kirit g Allergy Unknown N/A 07/11/2017 Yes meperidine [id number] Drug Allerg y Unknown N/A 07/11/2017 Medications There is no data. Problems Date Dx Coded Attending Type Code Diagnosis Diagnosed By 07/11/2017 DOUG KAUR MD Ot F17.210 NICOTINE DEPENDENCE, CIGARETTES, UNCOMPL 07/11/2017 DOUG KAUR MD Ot J43. 9 EMPHYSEMA, UNSPECIFIED 07/11/2017 DOUG KAUR MD Ot N39. 0 URINARY TRACT INFECTION, SITE NOT SPECIF 07/11/2017 DOUG KAUR MD Ot R10. 11 RIGHT UPPER QUADRANT PAIN 07/11/2017 DOUG KAUR MD Ot Z87. 19 PERSONAL HISTORY OF OTHER DISEASES OF 07/11/2017 DOUG KAUR MD Ot Z87. 59 PERSONAL HISTORY OF COMP OF PREG, CHLDBR 07/14/2017 SHANICE AGUIAR APRN Ot J43 .9 EMPHYSEMA, UNSPECIFIED 07/14/2017 SHANICE AGUIAR APRN Ot N39 .0 URINARY TRACT INFECTION, SITE NOT SPECIF 07/14/2017 SHANICE AGUIAR APRN Ot R11 .2 NAUSEA WITH VOMITING, UNSPECIFIED 07/14/2017 SHANICE AGUIAR APRN Ot Z87.19 PERSONAL HISTORY OF OTHER DISEASES OF 07/14/2017 SHANICE AGUIAR APRN Ot Z87.59 PERSONAL HISTORY OF COMP OF PREG, CHLDBR 07/16/2017 SHANICE AGUIAR APRN Ot J43 .9 EMPHYSEMA, UNSPECIFIED 07/16/2017 SHANICE AGUIAR APRN Ot N39 .0 URINARY TRACT INFECTION, SITE NOT SPECIF 07/16/2017 SHANICE AGUIAR ABLE BODIED WATCHMAN Ot R11 .2 NAUSEA WITH VOMITING, UNSPECIFIED 07/16/2017 SHANICE AGUIAR ABLE BODIED WATCHMAN Ot Z87.19 PERSONAL HISTORY OF OTHER DISEASES OF 07/16/2017 SHANICE AGUIAR ABLE BODIED WATCHMAN Ot Z87.59 PERSONAL HISTORY OF COMP OF PREG, CHLDBR 07/22/2017 VINCENT [place], DOUG Carter Ot F17.210 NICOTINE DEPENDENCE, CIGARETTES, UNCOMPL 07/22/2017 VINCENT [place], DOUG Carter Ot J43. 9 EMPHYSEMA, UNSPECIFIED 07/22/2017 VINCENT [place], DOUG J Ot N39. 0 URINARY TRACT INFECTION, SITE NOT SPECIF 07/22/2017 DOUG KAUR MD Ot R10. 11 RIGHT UPPER QUADRANT PAIN 07/22/2017 DOUG KAUR MD Ot Z87. 19 PERSONAL HISTORY OF OTHER DISEASES OF 07/22/2017 DOUG KAUR MD Ot Z87. 59 PERSONAL HISTORY OF COMP OF PREG, CHLDBR 01/31/2018 TOÑO MARTINS MD Ot R10.1 1 RIGHT UPPER QUADRANT PAIN 01/31/2018 TOÑO MARTINS MD Ot R10.1 2 LEFT UPPER QUADRANT PAIN 01/31/2018 TOÑO MARTINS MD Ot R10.3 1 RIGHT LOWER QUADRANT PAIN 01/31/2018 TOÑO MARTINS MD Ot R10.3 2 LEFT LOWER QUADRANT PAIN 02/02/2018 TOÑO MARTINS MD Ot K44.9 DIAPHRAGMATIC HERNIA WITHOUT OBSTRUCTION 02/02/2018 TOÑO MARTINS MD Ot R19.7 DIARRHEA, UNSPECIFIED 02/04/2018 TOÑO MRATINS MD Ot K44.9 DIAPHRAGMATIC HERNIA WITHOUT OBSTRUCTION 02/04/2018 TOÑO MARTINS MD Ot R19.7 DIARRHEA, UNSPECIFIED 03/25/2018 TOÑO MARTINS MD Ot K44.9 DIAPHRAGMATIC HERNIA WITHOUT OBSTRUCTION 03/25/2018 TOÑO MARTINS MD Ot R19.7 DIARRHEA, UNSPECIFIED 03/25/2018 TOÑO MARTINS MD Ot R10.1 1 RIGHT UPPER QUADRANT PAIN 03/25/2018 TOÑO MARTINS MD Ot R10.1 2 LEFT UPPER QUADRANT PAIN 03/25/2018 TOÑO MARTINS MD Ot R10.3 1 RIGHT LOWER QUADRANT PAIN 03/25/2018 TOÑO MARTINS MD Ot R10.3 2 LEFT LOWER QUADRANT PAIN 03/25/2018 TOÑO MARTINS MD Ot K44.9 DIAPHRAGMATIC HERNIA WITHOUT OBSTRUCTION 03/25/2018 TOÑO MARTINS MD Ot R19.7 DIARRHEA, UNSPECIFIED 03/25/2018 TOÑO MARTINS MD Ot R10.1 1 RIGHT UPPER QUADRANT PAIN 03/25/2018 TOÑO MARTINS MD Ot R10.1 2 LEFT UPPER QUADRANT PAIN 03/25/2018 TOÑO MARTINS MD Ot R10.3 1 RIGHT LOWER QUADRANT PAIN 03/25/2018 TOÑO MARTINS MD Ot R10.3 2 LEFT LOWER QUADRANT PAIN 03/28/2018 RAISSA [place], JULIO CESAR Hernadez Ot F17.210 NICOTINE DEPENDENCE, CIGARETTES, UNCOMPL 03/28/2018 RAISSA [place], JULIO CESAR Hernadez Ot J43. 9 EMPHYSEMA, UNSPECIFIED 03/28/2018 RAISSA [place], JULIO CESAR Hernadez Ot K21. 9 GASTRO-ESOPHAGEAL REFLUX DISEASE WITHOUT 03/28/2018 JULIO CESAR HAJI MD Ot K44. 9 DIAPHRAGMATIC HERNIA WITHOUT OBSTRUCTION 03/28/2018 RAISSA [place], JULIO CESAR Hernadez Ot K56.600 PARTIAL INTESTINAL OBSTRUCTION, UNSPECIF 03/28/2018 RAISSA [place], JULIO CESAR Hernadez Ot N39. 0 URINARY TRACT INFECTION, SITE NOT SPECIF 05/25/2018 TOÑO MARTINS MD Ot K44.9 DIAPHRAGMATIC HERNIA WITHOUT OBSTRUCTION 05/25/2018 TOÑO MARTINS MD Ot R19.7 DIARRHEA, UNSPECIFIED 05/25/2018 TOÑO MARTINS MD Ot R10.1 1 RIGHT UPPER QUADRANT PAIN 05/25/2018 TOÑO MARTINS MD Ot R10.1 2 LEFT UPPER QUADRANT PAIN 05/25/2018 TOÑO MARTINS MD Ot R10.3 1 RIGHT LOWER QUADRANT PAIN 05/25/2018 TOÑO MARTINS MD Ot R10.3 2 LEFT LOWER QUADRANT PAIN 05/30/2018 TRUONG BOSS DO Ot F17.2 10 NICOTINE DEPENDENCE, CIGARETTES, UNCOMPL 05/30/2018 TRUONG BOSS DO Ot I82.6 11 ACUTE EMBOLISM AND THOMBOS OF SUPERFIC V 05/30/2018 TRUONG BOSS DO Ot J43.9 EMPHYSEMA, UNSPECIFIED 05/30/2018 TRUONG BOSS DO Ot J98.1 1 ATELECTASIS 05/30/2018 GERA DO, TRUONG B Ot K21.9 GASTRO-ESOPHAGEAL REFLUX DISEASE WITHOUT 05/30/2018 DELMAN DO, TRUONG B Ot K44.9 DIAPHRAGMATIC HERNIA WITHOUT OBSTRUCTION 05/30/2018 GERA DO, RTUONG B Ot K56.6 90 OTHER PARTIAL INTESTINAL OBSTRUCTION 05/30/2018 GERA DO, TRUONG B Ot Z87.1 9 PERSONAL HISTORY OF OTHER DISEASES OF 05/31/2018 GERA DO, TRUONG B Ot F17.2 10 NICOTINE DEPENDENCE, CIGARETTES, UNCOMPL 05/31/2018 GERA DO, TRUONG B Ot J43.9 EMPHYSEMA, UNSPECIFIED 05/31/2018 GERA DO, TRUONG B Ot K21.9 GASTRO-ESOPHAGEAL REFLUX DISEASE WITHOUT 05/31/2018 DELMAN DO, TRUONG B Ot K44.9 DIAPHRAGMATIC HERNIA WITHOUT OBSTRUCTION 05/31/2018 GERA DO, TRUONG B Ot K56.6 90 OTHER PARTIAL INTESTINAL OBSTRUCTION 05/31/2018 GERA DO, TRUONG B Ot Z87.1 9 PERSONAL HISTORY OF OTHER DISEASES OF 05/31/2018 GERA DO, TRUONG B Ot F17.2 10 NICOTINE DEPENDENCE, CIGARETTES, UNCOMPL 05/31/2018 GERA DO, TRUONG B Ot J43.9 EMPHYSEMA, UNSPECIFIED 05/31/2018 GERA DO, TRUONG B Ot K21.9 GASTRO-ESOPHAGEAL REFLUX DISEASE WITHOUT 05/31/2018 GERA DO, TRUONG B Ot K44.9 DIAPHRAGMATIC HERNIA WITHOUT OBSTRUCTION 05/31/2018 GERA DO, TRUONG B Ot K56.6 90 OTHER PARTIAL INTESTINAL OBSTRUCTION 05/31/2018 GERA DO, TRUONG B Ot Z87.1 9 PERSONAL HISTORY OF OTHER DISEASES OF 05/31/2018 GERA DO, TRUONG B Ot F17.2 10 NICOTINE DEPENDENCE, CIGARETTES, UNCOMPL 05/31/2018 GERA DO, TRUONG B Ot J43.9 EMPHYSEMA, UNSPECIFIED 05/31/2018 GERA DO, TRUONG B Ot K21.9 GASTRO-ESOPHAGEAL REFLUX DISEASE WITHOUT 05/31/2018 DELMAN DO, TRUONG B Ot K44.9 DIAPHRAGMATIC HERNIA WITHOUT OBSTRUCTION 05/31/2018 DELJOELLE DO, TRUONG B Ot K56.6 90 OTHER PARTIAL INTESTINAL OBSTRUCTION 05/31/2018 GERA DO, TRUONG B Ot Z87.1 9 PERSONAL HISTORY OF OTHER DISEASES OF 05/31/2018 TRUONG BOSS DO Ot F17.2 10 NICOTINE DEPENDENCE, CIGARETTES, UNCOMPL 05/31/2018 TRUONG BOSS DO Ot J43.9 EMPHYSEMA, UNSPECIFIED 05/31/2018 TRUONG BOSS DO Ot K21.9 GASTRO-ESOPHAGEAL REFLUX DISEASE WITHOUT 05/31/2018 TRUONG BOSS DO Ot K44.9 DIAPHRAGMATIC HERNIA WITHOUT OBSTRUCTION 05/31/2018 TRUONG BOSS DO Ot K56.6 90 OTHER PARTIAL INTESTINAL OBSTRUCTION 05/31/2018 TRUONG BOSS DO Ot Z87.1 9 PERSONAL HISTORY OF OTHER DISEASES OF 06/30/2018 LAKSHMI [place], TOÑO Howe Ot K44.9 DIAPHRAGMATIC HERNIA WITHOUT OBSTRUCTION Procedures Code Description Performed By Per formed On [id number] DR GODINEZ OF STOMACH WITH DRAINAGE DEVICE 05/26/2018 Results Test Result Range Complete blood count (CBC) with automate d white blood cell (WBC) differential - 07/11/17 11:54 Blood leukocytes automated count (number/volume) 11.1 10*3/uL 4.3-11.0 Blood erythrocytes automated count (number/volume) 5.99 10*6/uL 4.35-5.85 Venous blood hemoglobin measurement (mass/volume) 14.9 g/dL 11.5-16.0 Blood hematocrit (volume fraction) 46 % 35-52 Automated erythrocyte mean corpuscular volume 77 [ foz_us] 80-99 Automated erythrocyte mean corpuscular h emoglobin (mass per erythrocyte) 25 pg 25-34 Automated erythrocyte mean corpuscular h emoglobin concentration measurement (mass/volume) 33 g/dL 32-36 Automated erythrocyte distribution width ratio 20. 1 % 10.0- 14.5 Automated blood platelet count (count/volume) 732 10*3/uL 130-400 Automated blood platelet mean volume measurement 10.9 [foz_us] 7.4-10.4 Automated blood neutrophils/100 leukocytes 52 % 42-75 Automated blood lymphocytes/100 leukocytes 34 % 12-44 Blood monocytes/100 leukocytes 12 % 0-12 Automated blood eosinophils/100 leukocytes 2 % 0-10 Automated blood basophils/100 leukocytes 1 % 0-10 Blood neutrophils automated count (number/volume) 5.7 10*3 1.8-7.8 Blood lymphocytes automated count (number/volume) 3.7 10*3 1.0-4.0 Blood monocytes automated count (number/volume) 1. 3 10*3 0.0-1.0 Automated eosinophil count 0.2 10*3/uL 0 .0-0.3 Automated blood basophil count (count/volume) 0.1 10*3/uL 0.0-0.1 Comprehensive metabolic panel - 07/11/17 11:54 Serum or plasma sodium measurement (moles/volume) 140 mmol/L 135-145 Serum or plasma potassium measurement (moles/volume) 3.9 mmol/L 3.6-5.0 Serum or plasma chloride measurement (moles/volume) 104 mmol/L 98-107 Carbon dioxide 21 mmol/L 21-32 Serum or plasma anion gap determination (moles/volume) 15 mmol/L 5-14 Serum or plasma urea nitrogen measurement (mass/volume ) 15 mg/dL 7-18 Serum or plasma creatinine measurement (mass/volume) 0.75 mg/dL 0.60-1.30 Serum or plasma urea nitrogen/creatinine mass ratio 20 NRG Serum or plasma creatinine measurement w ith calculation of estimated glomerular filtration rate > NRG Serum or plasma glucose measurement (mass/volume) 102 mg/dL 70-105 Serum or plasma calcium measurement (mass/volume) 9.7 mg/dL 8.5-10.1 Serum or plasma total bilirubin measurement (mass/volu me) 1.7 mg/dL 0.1-1.0 Serum or plasma alkaline phosphatase marvin surement (enzymatic activity/volume) 66 U/L 40-136 Serum or plasma aspartate aminotransfera se measurement (enzymatic activity/volume) 19 U/L 5-34 Serum or plasma alanine aminotransferase measurement (enzymatic activity/volume) 15 U/L 0-55 Serum or plasma protein measurement (mass/volume) 7.5 g/dL 6.4-8.2 Serum or plasma albumin measurement (mass/volume) 4.3 g/dL 3.2-4.5 Magnesium - 07/11/17 11:54 Magnesium 2.0 mg/dL 1.8-2.4 Serum or plasma troponin i.cardiac measu rement (mass/volume) - 07/11/17 11:54 Serum or plasma troponin i.cardiac measurement (mass/v olume) < ng/mL <0.30 Lipase - 07/11/17 11:54 Lipase 29 U/L 8-78 Serum or plasma C reactive protein measu rement (mass/volume) - 07/11/17 11:54 Serum or plasma C reactive protein measurement (mass/v olume) 0.12 mg/dL 0.00-0.50 Complete urinalysis with reflex to cultu re - 07/11/17 13:58 Urine color determination YELLOW NRG Urine clarity determination CLEAR NR G Urine pH measurement by test strip 6.5 5-9 Specific gravity of urine by test strip 1.010 1.016-1.022 Urine protein assay by test strip, semi-quantitative 1+ NEGATIVE Urine glucose detection by automated test strip NE GATIVE NEGATIVE Erythrocytes detection in urine sediment by light micr oscopy NEGATIVE NEGATIVE Urine ketones detection by automated test strip 3+ NEGATIVE Urine nitrite detection by test strip NEGATIVE NEGATIVE Urine total bilirubin detection by test strip NEGA TIVE NEGATIVE Urine urobilinogen measurement by automated test strip (mass/volume) NORMAL NORMAL Urine leukocyte esterase detection by dipstick 1+ NEGATIVE Automated urine sediment erythrocyte cou nt by microscopy (number/high power field) NONE NRG Automated urine sediment leukocyte count by microscopy (number/high power field) [HPF] NRG Bacteria detection in urine sediment by light microsco py TRACE NRG Squamous epithelial cells detection in u rine sediment by light microscopy 10-25 NRG Crystals detection in urine sediment by light microsco py NONE NRG Casts detection in urine sediment by light microscopy NONE NRG Mucus detection in urine sediment by light microscopy NEGATIVE NRG Complete urinalysis with reflex to culture NO NRG Complete blood count (CBC) with automate d white blood cell (WBC) differential - 07/14/17 11:12 Blood leukocytes automated count (number/volume) 10.7 10*3/uL 4.3-11.0 Blood erythrocytes automated count (number/volume) 6.75 10*6/uL 4.35-5.85 Venous blood hemoglobin measurement (mass/volume) 16.6 g/dL 11.5-16.0 Blood hematocrit (volume fraction) 51 % 35-52 Automated erythrocyte mean corpuscular volume 75 [ foz_us] 80-99 Automated erythrocyte mean corpuscular h emoglobin (mass per erythrocyte) 25 pg 25-34 Automated erythrocyte mean corpuscular h emoglobin concentration measurement (mass/volume) 33 g/dL 32-36 Automated erythrocyte distribution width ratio 21. 1 % 10.0- 14.5 Automated blood platelet count (count/volume) 722 10*3/uL 130-400 Automated blood platelet mean volume measurement 11.1 [foz_us] 7.4-10.4 Automated blood neutrophils/100 leukocytes 66 % 42-75 Automated blood lymphocytes/100 leukocytes 12 % 12-44 Blood monocytes/100 leukocytes 21 % 0-12 Automated blood eosinophils/100 leukocytes 1 % 0-10 Automated blood basophils/100 leukocytes 0 % 0-10 Blood neutrophils automated count (number/volume) 7.0 10*3 1.8-7.8 Blood lymphocytes automated count (number/volume) 1.3 10*3 1.0-4.0 Blood monocytes automated count (number/volume) 2. 3 10*3 0.0-1.0 Automated eosinophil count 0.1 10*3/uL 0 .0-0.3 Automated blood basophil count (count/volume) 0.0 10*3/uL 0.0-0.1 Comprehensive metabolic panel - 07/14/17 11:12 Serum or plasma sodium measurement (moles/volume) 137 mmol/L 135-145 Serum or plasma potassium measurement (moles/volume) 4.5 mmol/L 3.6-5.0 Serum or plasma chloride measurement (moles/volume) 100 mmol/L 98-107 Carbon dioxide 22 mmol/L 21-32 Serum or plasma anion gap determination (moles/volume) 15 mmol/L 5-14 Serum or plasma urea nitrogen measurement (mass/volume ) 36 mg/dL 7-18 Serum or plasma creatinine measurement (mass/volume) 1.04 mg/dL 0.60-1.30 Serum or plasma urea nitrogen/creatinine mass ratio 35 NRG Serum or plasma creatinine measurement w ith calculation of estimated glomerular filtration rate 52 NRG Serum or plasma glucose measurement (mass/volume) 126 mg/dL 70-105 Serum or plasma calcium measurement (mass/volume) 10.3 mg/dL 8.5-10.1 Serum or plasma total bilirubin measurement (mass/volu me) 1.4 mg/dL 0.1-1.0 Serum or plasma alkaline phosphatase marvin surement (enzymatic activity/volume) 57 U/L 40-136 Serum or plasma aspartate aminotransfera se measurement (enzymatic activity/volume) 15 U/L 5-34 Serum or plasma alanine aminotransferase measurement (enzymatic activity/volume) 11 U/L 0-55 Serum or plasma protein measurement (mass/volume) 7.9 g/dL 6.4-8.2 Serum or plasma albumin measurement (mass/volume) 4.0 g/dL 3.2-4.5 Blood manual differential performed dete ction - 07/14/17 11:12 Blood monocytes/100 leukocytes 19 % NRG Manual blood segmented neutrophils/100 leukocytes 52 % NRG Blood band neutrophils/100 leukocytes 14 % NRG Manual blood lymphocytes/100 leukocytes 15 % NRG Manual eosinophils/100 leukocytes in nose 0 % NRG Manual blood basophils/100 leukocytes 0 % NRG Blood anisocytosis detection by light microscopy S LIGHT NRG Blood microcytes detection by light microscopy SLI GHT NRG Complete urinalysis with reflex to cultu re - 07/14/17 11:19 Urine color determination YELLOW NRG Urine clarity determination SLIGHTLY CLOUDY NRG Urine pH measurement by test strip 5 5-9 Specific gravity of urine by test strip 1.025 1.016-1.022 Urine protein assay by test strip, semi-quantitative 2+ NEGATIVE Urine glucose detection by automated test strip NE GATIVE NEGATIVE Erythrocytes detection in urine sediment by light micr oscopy NEGATIVE NEGATIVE Urine ketones detection by automated test strip 3+ NEGATIVE Urine nitrite detection by test strip NEGATIVE NEGATIVE Urine total bilirubin detection by test strip 2+ NEGATIVE Urine urobilinogen measurement by automated test strip (mass/volume) 1 mg/dL NORMAL Urine leukocyte esterase detection by dipstick 2+ NEGATIVE Automated urine sediment erythrocyte cou nt by microscopy (number/high power field) RARE NRG Automated urine sediment leukocyte count by microscopy (number/high power field) [HPF] NRG Bacteria detection in urine sediment by light microsco py MODERATE NRG Squamous epithelial cells detection in u rine sediment by light microscopy 25-50 NRG Crystals detection in urine sediment by light microsco py NONE NRG Casts detection in urine sediment by light microscopy PRESENT NRG Mucus detection in urine sediment by light microscopy NEGATIVE NRG Complete urinalysis with reflex to culture YES NRG Hyaline casts detection in urine sediment by light dayami roscopy 5-10 NRG Bacterial urine culture - 07/14/17 11:19 URINE CULTURE RESULTS <10,000/ML NRG [id number] - 01/26/18 12:58 Serum or plasma urea nitrogen measurement (mass/volume ) 15 mg/dL 7-18 Serum or plasma creatinine measurement (mass/volume) 1.26 mg/dL 0.60-1.30 Serum or plasma urea nitrogen/creatinine mass ratio 12 NRG Serum or plasma creatinine measurement w ith calculation of estimated glomerular filtration rate 42 NRG Complete blood count (CBC) with automate d white blood cell (WBC) differential - 03/24/18 23:58 Blood leukocytes automated count (number/volume) 13.6 10*3/uL 4.3-11.0 Blood erythrocytes automated count (number/volume) 6.52 10*6/uL 4.35-5.85 Venous blood hemoglobin measurement (mass/volume) 17.0 g/dL 11.5-16.0 Blood hematocrit (volume fraction) 52 % 35-52 Automated erythrocyte mean corpuscular volume 79 [ foz_us] 80-99 Automated erythrocyte mean corpuscular h emoglobin (mass per erythrocyte) 26 pg 25-34 Automated erythrocyte mean corpuscular h emoglobin concentration measurement (mass/volume) 33 g/dL 32-36 Automated erythrocyte distribution width ratio 19. 9 % 10.0- 14.5 Automated blood platelet count (count/volume) 710 10*3/uL 130-400 Automated blood platelet mean volume measurement 11.1 [foz_us] 7.4-10.4 Automated blood neutrophils/100 leukocytes 76 % 42-75 Automated blood lymphocytes/100 leukocytes 15 % 12-44 Blood monocytes/100 leukocytes 7 % 0-12 Automated blood eosinophils/100 leukocytes 2 % 0-10 Automated blood basophils/100 leukocytes 1 % 0-10 Blood neutrophils automated count (number/volume) 10.4 10*3 1.8-7.8 Blood lymphocytes automated count (number/volume) 2.0 10*3 1.0-4.0 Blood monocytes automated count (number/volume) 0. 9 10*3 0.0-1.0 Automated eosinophil count 0.2 10*3/uL 0 .0-0.3 Automated blood basophil count (count/volume) 0.1 10*3/uL 0.0-0.1 Comprehensive metabolic panel - 03/24/18 23:58 Serum or plasma sodium measurement (moles/volume) 139 mmol/L 135-145 Serum or plasma potassium measurement (moles/volume) 3.8 mmol/L 3.6-5.0 Serum or plasma chloride measurement (moles/volume) 104 mmol/L 98-107 Carbon dioxide 22 mmol/L 21-32 Serum or plasma anion gap determination (moles/volume) 13 mmol/L 5-14 Serum or plasma urea nitrogen measurement (mass/volume ) 15 mg/dL 7-18 Serum or plasma creatinine measurement (mass/volume) 1.02 mg/dL 0.60-1.30 Serum or plasma urea nitrogen/creatinine mass ratio 15 NRG Serum or plasma creatinine measurement w ith calculation of estimated glomerular filtration rate 53 NRG Serum or plasma glucose measurement (mass/volume) 137 mg/dL 70-105 Serum or plasma calcium measurement (mass/volume) 10.3 mg/dL 8.5-10.1 Serum or plasma total bilirubin measurement (mass/volu me) 0.9 mg/dL 0.1-1.0 Serum or plasma alkaline phosphatase marvin surement (enzymatic activity/volume) 71 U/L 40-136 Serum or plasma aspartate aminotransfera se measurement (enzymatic activity/volume) 19 U/L 5-34 Serum or plasma alanine aminotransferase measurement (enzymatic activity/volume) 17 U/L 0-55 Serum or plasma protein measurement (mass/volume) 7.5 g/dL 6.4-8.2 Serum or plasma albumin measurement (mass/volume) 4.3 g/dL 3.2-4.5 CALCIUM CORRECTED 10.1 mg/dL 8.5-10.1 Magnesium - 03/24/18 23:58 Magnesium 2.3 mg/dL 1.8-2.4 Lipase - 03/24/18 23:58 Lipase 29 U/L 8-78 Complete urinalysis with reflex to cultu re - 03/25/18 00:44 Urine color determination YELLOW NRG Urine clarity determination CLEAR NR G Urine pH measurement by test strip 5 5-9 Specific gravity of urine by test strip 1.030 1.016-1.022 Urine protein assay by test strip, semi-quantitative 2+ NEGATIVE Urine glucose detection by automated test strip NE GATIVE NEGATIVE Erythrocytes detection in urine sediment by light micr oscopy 1+ NEGATIVE Urine ketones detection by automated test strip 1+ NEGATIVE Urine nitrite detection by test strip NEGATIVE NEGATIVE Urine total bilirubin detection by test strip 1+ NEGATIVE Urine urobilinogen measurement by automated test strip (mass/volume) 1 mg/dL NORMAL Urine leukocyte esterase detection by dipstick 2+ NEGATIVE Automated urine sediment erythrocyte cou nt by microscopy (number/high power field) NONE NRG Automated urine sediment leukocyte count by microscopy (number/high power field) [HPF] NRG Bacteria detection in urine sediment by light microsco py MODERATE NRG Squamous epithelial cells detection in u rine sediment by light microscopy 0-2 NRG Crystals detection in urine sediment by light microsco py NONE NRG Casts detection in urine sediment by light microscopy NONE NRG Mucus detection in urine sediment by light microscopy NEGATIVE NRG Complete urinalysis with reflex to culture YES NRG Bacterial urine culture - 03/25/18 00:44 Bacterial urine culture SEE COMMEN NRG COLONY COUNT . NRG Complete blood count (CBC) with automate d white blood cell (WBC) differential - 03/28/18 05:48 Blood leukocytes automated count (number/volume) 7.4 10*3/uL 4.3-11.0 Blood erythrocytes automated count (number/volume) 5.41 10*6/uL 4.35-5.85 Venous blood hemoglobin measurement (mass/volume) 14.0 g/dL 11.5-16.0 Blood hematocrit (volume fraction) 44 % 35-52 Automated erythrocyte mean corpuscular volume 80 [ foz_us] 80-99 Automated erythrocyte mean corpuscular h emoglobin (mass per erythrocyte) 26 pg 25-34 Automated erythrocyte mean corpuscular h emoglobin concentration measurement (mass/volume) 32 g/dL 32-36 Automated erythrocyte distribution width ratio 18. 3 % 10.0- 14.5 Automated blood platelet count (count/volume) 457 10*3/uL 130-400 Automated blood platelet mean volume measurement 11.0 [foz_us] 7.4-10.4 Automated blood neutrophils/100 leukocytes 53 % 42-75 Automated blood lymphocytes/100 leukocytes 29 % 12-44 Blood monocytes/100 leukocytes 13 % 0-12 Automated blood eosinophils/100 leukocytes 4 % 0-10 Automated blood basophils/100 leukocytes 0 % 0-10 Blood neutrophils automated count (number/volume) 3.9 10*3 1.8-7.8 Blood lymphocytes automated count (number/volume) 2.2 10*3 1.0-4.0 Blood monocytes automated count (number/volume) 1. 0 10*3 0.0-1.0 Automated eosinophil count 0.3 10*3/uL 0 .0-0.3 Automated blood basophil count (count/volume) 0.0 10*3/uL 0.0-0.1 Serum or plasma renal function panel (Na , K, Cl, CO2, BUN, Cr, glucose,Ca, phos, alb) - 03/28/18 05:48 Serum or plasma sodium measurement (moles/volume) 139 mmol/L 135-145 Serum or plasma potassium measurement (moles/volume) 4.1 mmol/L 3.6-5.0 Serum or plasma chloride measurement (moles/volume) 108 mmol/L 98-107 Carbon dioxide 23 mmol/L 21-32 Serum or plasma anion gap determination (moles/volume) 8 mmol/L 5-14 Serum or plasma urea nitrogen measurement (mass/volume ) 6 mg/dL 7-18 Serum or plasma creatinine measurement (mass/volume) 0.75 mg/dL 0.60-1.30 Serum or plasma urea nitrogen/creatinine mass ratio 8 NRG Serum or plasma creatinine measurement w ith calculation of estimated glomerular filtration rate > NRG Serum or plasma glucose measurement (mass/volume) 87 mg/dL 70-105 Serum or plasma calcium measurement (mass/volume) 9.3 mg/dL 8.5-10.1 Serum or plasma albumin measurement (mass/volume) 3.3 g/dL 3.2-4.5 Serum or plasma phosphate measurement (mass/volume) 4.1 mg/dL 2.3-4.7 Complete blood count (CBC) with automate d white blood cell (WBC) differential - 05/25/18 16:02 Blood leukocytes automated count (number/volume) 13.1 10*3/uL 4.3-11.0 Blood erythrocytes automated count (number/volume) 6.39 10*6/uL 4.35-5.85 Venous blood hemoglobin measurement (mass/volume) 17.0 g/dL 11.5-16.0 Blood hematocrit (volume fraction) 51 % 35-52 Automated erythrocyte mean corpuscular volume 80 [ foz_us] 80-99 Automated erythrocyte mean corpuscular h emoglobin (mass per erythrocyte) 27 pg 25-34 Automated erythrocyte mean corpuscular h emoglobin concentration measurement (mass/volume) 33 g/dL 32-36 Automated erythrocyte distribution width ratio 20. 0 % 10.0- 14.5 Automated blood platelet count (count/volume) 689 10*3/uL 130-400 Automated blood platelet mean volume measurement 10.6 [foz_us] 7.4-10.4 Automated blood neutrophils/100 leukocytes 72 % 42-75 Automated blood lymphocytes/100 leukocytes 16 % 12-44 Blood monocytes/100 leukocytes 10 % 0-12 Automated blood eosinophils/100 leukocytes 2 % 0-10 Automated blood basophils/100 leukocytes 1 % 0-10 Blood neutrophils automated count (number/volume) 9.5 10*3 1.8-7.8 Blood lymphocytes automated count (number/volume) 2.0 10*3 1.0-4.0 Blood monocytes automated count (number/volume) 1. 2 10*3 0.0-1.0 Automated eosinophil count 0.3 10*3/uL 0 .0-0.3 Automated blood basophil count (count/volume) 0.1 10*3/uL 0.0-0.1 Comprehensive metabolic panel - 05/25/18 16:02 Serum or plasma sodium measurement (moles/volume) 141 mmol/L 135-145 Serum or plasma potassium measurement (moles/volume) 4.2 mmol/L 3.6-5.0 Serum or plasma chloride measurement (moles/volume) 106 mmol/L 98-107 Carbon dioxide 25 mmol/L 21-32 Serum or plasma anion gap determination (moles/volume) 10 mmol/L 5-14 Serum or plasma urea nitrogen measurement (mass/volume ) 16 mg/dL 7-18 Serum or plasma creatinine measurement (mass/volume) 0.87 mg/dL 0.60-1.30 Serum or plasma urea nitrogen/creatinine mass ratio 18 NRG Serum or plasma creatinine measurement w ith calculation of estimated glomerular filtration rate > NRG Serum or plasma glucose measurement (mass/volume) 94 mg/dL 70-105 Serum or plasma calcium measurement (mass/volume) 10.6 mg/dL 8.5-10.1 Serum or plasma total bilirubin measurement (mass/volu me) 1.4 mg/dL 0.1-1.0 Serum or plasma alkaline phosphatase marvin surement (enzymatic activity/volume) 72 U/L 40-136 Serum or plasma aspartate aminotransfera se measurement (enzymatic activity/volume) 22 U/L 5-34 Serum or plasma alanine aminotransferase measurement (enzymatic activity/volume) 19 U/L 0-55 Serum or plasma protein measurement (mass/volume) 8.3 g/dL 6.4-8.2 Serum or plasma albumin measurement (mass/volume) 4.7 g/dL 3.2-4.5 Serum or plasma amylase measurement (enz ymatic activity/volume) - 05/25/18 16:02 Serum or plasma amylase measurement (enzymatic activit y/volume) 46 U/L 25-125 Lipase - 05/25/18 16:02 Lipase 38 U/L 8-78 Complete urinalysis with reflex to cultu re - 05/25/18 17:22 Urine color determination YELLOW NRG Urine clarity determination CLEAR NR G Urine pH measurement by test strip 5 5-9 Specific gravity of urine by test strip 1.020 1.016-1.022 Urine protein assay by test strip, semi-quantitative NEGATIVE NEGATIVE Urine glucose detection by automated test strip NE GATIVE NEGATIVE Erythrocytes detection in urine sediment by light micr oscopy NEGATIVE NEGATIVE Urine ketones detection by automated test strip NE GATIVE NEGATIVE Urine nitrite detection by test strip NEGATIVE NEGATIVE Urine total bilirubin detection by test strip NEGA TIVE NEGATIVE Urine urobilinogen measurement by automated test strip (mass/volume) NORMAL NORMAL Urine leukocyte esterase detection by dipstick 2+ NEGATIVE Automated urine sediment erythrocyte cou nt by microscopy (number/high power field) NONE NRG Automated urine sediment leukocyte count by microscopy (number/high power field) [HPF] NRG Bacteria detection in urine sediment by light microsco py FEW NRG Squamous epithelial cells detection in u rine sediment by light microscopy 5-10 NRG Crystals detection in urine sediment by light microsco py NONE NRG Casts detection in urine sediment by light microscopy NONE NRG Mucus detection in urine sediment by light microscopy NEGATIVE NRG Complete urinalysis with reflex to culture YES NRG Bacterial urine culture - 05/25/18 17:22 Bacterial urine culture NG NRG Complete blood count (CBC) with automate d white blood cell (WBC) differential - 05/26/18 07:47 Blood leukocytes automated count (number/volume) 15.4 10*3/uL 4.3-11.0 Blood erythrocytes automated count (number/volume) 6.31 10*6/uL 4.35-5.85 Venous blood hemoglobin measurement (mass/volume) 16.7 g/dL 11.5-16.0 Blood hematocrit (volume fraction) 51 % 35-52 Automated erythrocyte mean corpuscular volume 81 [ foz_us] 80-99 Automated erythrocyte mean corpuscular h emoglobin (mass per erythrocyte) 26 pg 25-34 Automated erythrocyte mean corpuscular h emoglobin concentration measurement (mass/volume) 33 g/dL 32-36 Automated erythrocyte distribution width ratio 20. 0 % 10.0- 14.5 Automated blood platelet count (count/volume) 603 10*3/uL 130-400 Automated blood platelet mean volume measurement 10.5 [foz_us] 7.4-10.4 Automated blood neutrophils/100 leukocytes 81 % 42-75 Automated blood lymphocytes/100 leukocytes 7 % 12-44 Blood monocytes/100 leukocytes 11 % 0-12 Automated blood eosinophils/100 leukocytes 1 % 0-10 Automated blood basophils/100 leukocytes 0 % 0-10 Blood neutrophils automated count (number/volume) 12.5 10*3 1.8-7.8 Blood lymphocytes automated count (number/volume) 1.1 10*3 1.0-4.0 Blood monocytes automated count (number/volume) 1. 7 10*3 0.0-1.0 Automated eosinophil count 0.1 10*3/uL 0 .0-0.3 Automated blood basophil count (count/volume) 0.0 10*3/uL 0.0-0.1 Comprehensive metabolic panel - 05/26/18 07:47 Serum or plasma sodium measurement (moles/volume) 141 mmol/L 135-145 Serum or plasma potassium measurement (moles/volume) 4.0 mmol/L 3.6-5.0 Serum or plasma chloride measurement (moles/volume) 108 mmol/L 98-107 Carbon dioxide 19 mmol/L 21-32 Serum or plasma anion gap determination (moles/volume) 14 mmol/L 5-14 Serum or plasma urea nitrogen measurement (mass/volume ) 12 mg/dL 7-18 Serum or plasma creatinine measurement (mass/volume) 0.77 mg/dL 0.60-1.30 Serum or plasma urea nitrogen/creatinine mass ratio 16 NRG Serum or plasma creatinine measurement w ith calculation of estimated glomerular filtration rate > NRG Serum or plasma glucose measurement (mass/volume) 110 mg/dL 70-105 Serum or plasma calcium measurement (mass/volume) 9.7 mg/dL 8.5-10.1 Serum or plasma total bilirubin measurement (mass/volu me) 1.8 mg/dL 0.1-1.0 Serum or plasma alkaline phosphatase marvin surement (enzymatic activity/volume) 59 U/L 40-136 Serum or plasma aspartate aminotransfera se measurement (enzymatic activity/volume) 20 U/L 5-34 Serum or plasma alanine aminotransferase measurement (enzymatic activity/volume) 18 U/L 0-55 Serum or plasma protein measurement (mass/volume) 6.8 g/dL 6.4-8.2 Serum or plasma albumin measurement (mass/volume) 3.9 g/dL 3.2-4.5 CALCIUM CORRECTED 9.8 mg/dL 8.5-10.1 Blood manual differential performed dete ction - 05/26/18 07:47 Blood monocytes/100 leukocytes 9 % NRG Manual blood segmented neutrophils/100 leukocytes 61 % NRG Blood band neutrophils/100 leukocytes 17 % NRG Manual blood lymphocytes/100 leukocytes 3 % NRG Manual eosinophils/100 leukocytes in nose 1 % NRG Manual blood basophils/100 leukocytes 0 % NRG Blood lymphocytes variant/100 leukocytes 9 % NRG Blood anisocytosis detection by light microscopy S LIGHT NRG Blood ovalocytes detection by light microscopy SLI GHT NRG Blood toxic granules detection by light microscopy 1+ NRG Blood poikilocytosis detection by light microscopy MODERATE NRG Blood microcytes detection by light microscopy SLI GHT NRG Blood target cells detection by light microscopy S LIGHT NRG Blood stomatocytes detection by light microscopy S LIGHT NRG Complete blood count (CBC) with automate d white blood cell (WBC) differential - 05/27/18 07:55 Blood leukocytes automated count (number/volume) 10.5 10*3/uL 4.3-11.0 Blood erythrocytes automated count (number/volume) 5.55 10*6/uL 4.35-5.85 Venous blood hemoglobin measurement (mass/volume) 14.7 g/dL 11.5-16.0 Blood hematocrit (volume fraction) 47 % 35-52 Automated erythrocyte mean corpuscular volume 85 [ foz_us] 80-99 Automated erythrocyte mean corpuscular h emoglobin (mass per erythrocyte) 27 pg 25-34 Automated erythrocyte mean corpuscular h emoglobin concentration measurement (mass/volume) 31 g/dL 32-36 Automated erythrocyte distribution width ratio 19. 4 % 10.0- 14.5 Automated blood platelet count (count/volume) 464 10*3/uL 130-400 Automated blood platelet mean volume measurement 10.5 [foz_us] 7.4-10.4 Automated blood neutrophils/100 leukocytes 67 % 42-75 Automated blood lymphocytes/100 leukocytes 17 % 12-44 Blood monocytes/100 leukocytes 13 % 0-12 Automated blood eosinophils/100 leukocytes 2 % 0-10 Automated blood basophils/100 leukocytes 1 % 0-10 Blood neutrophils automated count (number/volume) 7.0 10*3 1.8-7.8 Blood lymphocytes automated count (number/volume) 1.8 10*3 1.0-4.0 Blood monocytes automated count (number/volume) 1. 4 10*3 0.0-1.0 Automated eosinophil count 0.2 10*3/uL 0 .0-0.3 Automated blood basophil count (count/volume) 0.1 10*3/uL 0.0-0.1 Comprehensive metabolic panel - 05/27/18 07:55 Serum or plasma sodium measurement (moles/volume) 141 mmol/L 135-145 Serum or plasma potassium measurement (moles/volume) 4.0 mmol/L 3.6-5.0 Serum or plasma chloride measurement (moles/volume) 111 mmol/L 98-107 Carbon dioxide 22 mmol/L 21-32 Serum or plasma anion gap determination (moles/volume) 8 mmol/L 5-14 Serum or plasma urea nitrogen measurement (mass/volume ) 9 mg/dL 7-18 Serum or plasma creatinine measurement (mass/volume) 0.70 mg/dL 0.60-1.30 Serum or plasma urea nitrogen/creatinine mass ratio 13 NRG Serum or plasma creatinine measurement w ith calculation of estimated glomerular filtration rate > NRG Serum or plasma glucose measurement (mass/volume) 88 mg/dL 70-105 Serum or plasma calcium measurement (mass/volume) 8.9 mg/dL 8.5-10.1 Serum or plasma total bilirubin measurement (mass/volu me) 1.6 mg/dL 0.1-1.0 Serum or plasma alkaline phosphatase marvin surement (enzymatic activity/volume) 47 U/L 40-136 Serum or plasma aspartate aminotransfera se measurement (enzymatic activity/volume) 14 U/L 5-34 Serum or plasma alanine aminotransferase measurement (enzymatic activity/volume) 12 U/L 0-55 Serum or plasma protein measurement (mass/volume) 5.8 g/dL 6.4-8.2 Serum or plasma albumin measurement (mass/volume) 3.4 g/dL 3.2-4.5 CALCIUM CORRECTED 9.4 mg/dL 8.5-10.1 Comprehensive metabolic panel - 05/29/18 02:45 Serum or plasma sodium measurement (moles/volume) 139 mmol/L 135-145 Serum or plasma potassium measurement (moles/volume) 3.5 mmol/L 3.6-5.0 Serum or plasma chloride measurement (moles/volume) 109 mmol/L 98-107 Carbon dioxide 18 mmol/L 21-32 Serum or plasma anion gap determination (moles/volume) 12 mmol/L 5-14 Serum or plasma urea nitrogen measurement (mass/volume ) 9 mg/dL 7-18 Serum or plasma creatinine measurement (mass/volume) 0.65 mg/dL 0.60-1.30 Serum or plasma urea nitrogen/creatinine mass ratio 14 NRG Serum or plasma creatinine measurement w ith calculation of estimated glomerular filtration rate > NRG Serum or plasma glucose measurement (mass/volume) 155 mg/dL 70-105 Serum or plasma calcium measurement (mass/volume) 9.5 mg/dL 8.5-10.1 Serum or plasma total bilirubin measurement (mass/volu me) 0.9 mg/dL 0.1-1.0 Serum or plasma alkaline phosphatase marvin surement (enzymatic activity/volume) 52 U/L 40-136 Serum or plasma aspartate aminotransfera se measurement (enzymatic activity/volume) 32 U/L 5-34 Serum or plasma alanine aminotransferase measurement (enzymatic activity/volume) 22 U/L 0-55 Serum or plasma protein measurement (mass/volume) 6.3 g/dL 6.4-8.2 Serum or plasma albumin measurement (mass/volume) 3.6 g/dL 3.2-4.5 CALCIUM CORRECTED 9.8 mg/dL 8.5-10.1 Complete blood count (CBC) with automate d white blood cell (WBC) differential - 05/29/18 03:40 Blood leukocytes automated count (number/volume) 8.9 10*3/uL 4.3-11.0 Blood erythrocytes automated count (number/volume) 5.11 10*6/uL 4.35-5.85 Venous blood hemoglobin measurement (mass/volume) 13.5 g/dL 11.5-16.0 Blood hematocrit (volume fraction) 42 % 35-52 Automated erythrocyte mean corpuscular volume 83 [ foz_us] 80-99 Automated erythrocyte mean corpuscular h emoglobin (mass per erythrocyte) 26 pg 25-34 Automated erythrocyte mean corpuscular h emoglobin concentration measurement (mass/volume) 32 g/dL 32-36 Automated erythrocyte distribution width ratio 18. 0 % 10.0- 14.5 Automated blood platelet count (count/volume) 412 10*3/uL 130-400 Automated blood platelet mean volume measurement 11.1 [foz_us] 7.4-10.4 Automated blood neutrophils/100 leukocytes 89 % 42-75 Automated blood lymphocytes/100 leukocytes 7 % 12-44 Blood monocytes/100 leukocytes 4 % 0-12 Automated blood eosinophils/100 leukocytes 0 % 0-10 Automated blood basophils/100 leukocytes 0 % 0-10 Blood neutrophils automated count (number/volume) 7.9 10*3 1.8-7.8 Blood lymphocytes automated count (number/volume) 0.6 10*3 1.0-4.0 Blood monocytes automated count (number/volume) 0. 4 10*3 0.0-1.0 Automated eosinophil count 0.0 10*3/uL 0 .0-0.3 Automated blood basophil count (count/volume) 0.0 10*3/uL 0.0-0.1 Blood blood smear finding identification by light micr oscopy YES NRG Complete blood count (CBC) with automate d white blood cell (WBC) differential - 05/30/18 05:25 Blood leukocytes automated count (number/volume) 15.1 10*3/uL 4.3-11.0 Blood erythrocytes automated count (number/volume) 5.15 10*6/uL 4.35-5.85 Venous blood hemoglobin measurement (mass/volume) 13.9 g/dL 11.5-16.0 Blood hematocrit (volume fraction) 42 % 35-52 Automated erythrocyte mean corpuscular volume 82 [ foz_us] 80-99 Automated erythrocyte mean corpuscular h emoglobin (mass per erythrocyte) 27 pg 25-34 Automated erythrocyte mean corpuscular h emoglobin concentration measurement (mass/volume) 33 g/dL 32-36 Automated erythrocyte distribution width ratio 19. 0 % 10.0- 14.5 Automated blood platelet count (count/volume) 440 10*3/uL 130-400 Automated blood platelet mean volume measurement 11.1 [foz_us] 7.4-10.4 Automated blood neutrophils/100 leukocytes 85 % 42-75 Automated blood lymphocytes/100 leukocytes 6 % 12-44 Blood monocytes/100 leukocytes 9 % 0-12 Automated blood eosinophils/100 leukocytes 0 % 0-10 Automated blood basophils/100 leukocytes 0 % 0-10 Blood neutrophils automated count (number/volume) 12.9 10*3 1.8-7.8 Blood lymphocytes automated count (number/volume) 0.9 10*3 1.0-4.0 Blood monocytes automated count (number/volume) 1. 4 10*3 0.0-1.0 Automated eosinophil count 0.0 10*3/uL 0 .0-0.3 Automated blood basophil count (count/volume) 0.0 10*3/uL 0.0-0.1 Comprehensive metabolic panel - 05/30/18 05:25 Serum or plasma sodium measurement (moles/volume) 139 mmol/L 135-145 Serum or plasma potassium measurement (moles/volume) 3.8 mmol/L 3.6-5.0 Serum or plasma chloride measurement (moles/volume) 108 mmol/L 98-107 Carbon dioxide 21 mmol/L 21-32 Serum or plasma anion gap determination (moles/volume) 10 mmol/L 5-14 Serum or plasma urea nitrogen measurement (mass/volume ) 12 mg/dL 7-18 Serum or plasma creatinine measurement (mass/volume) 0.70 mg/dL 0.60-1.30 Serum or plasma urea nitrogen/creatinine mass ratio 17 NRG Serum or plasma creatinine measurement w ith calculation of estimated glomerular filtration rate > NRG Serum or plasma glucose measurement (mass/volume) 128 mg/dL 70-105 Serum or plasma calcium measurement (mass/volume) 9.6 mg/dL 8.5-10.1 Serum or plasma total bilirubin measurement (mass/volu me) 0.7 mg/dL 0.1-1.0 Serum or plasma alkaline phosphatase marvin surement (enzymatic activity/volume) 60 U/L 40-136 Serum or plasma aspartate aminotransfera se measurement (enzymatic activity/volume) 46 U/L 5-34 Serum or plasma alanine aminotransferase measurement (enzymatic activity/volume) 47 U/L 0-55 Serum or plasma protein measurement (mass/volume) 6.1 g/dL 6.4-8.2 Serum or plasma albumin measurement (mass/volume) 3.6 g/dL 3.2-4.5 CALCIUM CORRECTED 9.9 mg/dL 8.5-10.1 Blood manual differential performed dete ction - 05/30/18 05:25 Blood monocytes/100 leukocytes 5 % NRG Manual blood segmented neutrophils/100 leukocytes 90 % NRG Manual blood lymphocytes/100 leukocytes 5 % NRG Encounters ACCT No. Visit Date/Time Discharge Status Pt. Type Provider Facility Loc./Unit Complaint [id number] 12/26/2019 17:31:00 020 18:11:00 DIS Emergency SHANICE AGIUAR APRN [facility] ER FINGER LACERATION [id number] 06/08/2018 07:52:00 018 23:59:59 CLS Outpatient TOÑO MARTINS MD [facility] RAD SMALL BOWEL OBSTRUCTION [id number] 05/26/2018 11:00:00 018 14:20:00 DIS Inpatient TRUONG BOSS DO [facility] 4TH SMALL BOWEL OBSTRUCTION [id number] 03/25/2018 03:04:00 018 12:25:00 DIS Inpatient JULIO CESAR HAJI MD [facility] 4TH SMALL BOWEL OBSTRUCTION ,UTI [id number] 01/27/2018 07:57:00 018 23:59:59 CLS Outpatient TOÑO MARTINS MD [facility] RAD ABNORMAL SM BOWEL [id number] 01/26/2018 12:45:00 018 23:59:59 CLS Outpatient TOÑO MARTINS MD [facility] LAB CT SCAN W CONTRAST [id number] 07/14/2017 10:13:00 017 12:54:00 DIS Emergency SHANICE AGUIAR APRN [facility] ER N/V/D [id number] 07/11/2017 11:42:00 15:35:00 DIS Emergency VINCENT [place], DOUG Merida [facility] ER VOMITING/STOMACH PAIN
== END 2019-12-26 18:11 | disposition home or self-care (01) ==
LOC: EDUNIT# 17:30 → ER 17:31
DX: S61.211A Laceration without foreign body of left index finger without damage to nail, initial encounter (principal); J43.9 Emphysema, unspecified; Z88.5 Allergy status to narcotic agent; Z88.8 Allergy status to other drugs, medicaments and biological substances; Z79.01 Long term (current) use of anticoagulants; Z79.52 Long term (current) use of systemic steroids; Z77.22 Contact with and (suspected) exposure to environmental tobacco smoke (acute) (chronic); Z82.49 Family history of ischemic heart disease and other diseases of the circulatory system; W26.0XXA Contact with knife, initial encounter
CPT/HCPCS: 12001

== ENCOUNTER 2020-01-03 15:44 | Emergency (ER) | payer MEDICARE, OTHER ==
[~2020-01-03] VITALS: Ht 160 cm; Wt 63.5 kg
[2020-01-03 16:01] VITALS: BP 140/78
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
== END 2020-01-03 16:01 | disposition home or self-care (01) ==
LOC: EDUNIT# 15:44 → ER 15:45
DX: S61.211D Laceration without foreign body of left index finger without damage to nail, subsequent encounter (principal); X58.XXXD Exposure to other specified factors, subsequent encounter

== ENCOUNTER 2021-09-04 18:25 | Observation (INO) | payer MEDICARE, OTHER ==
[~2021-09-04] VITALS: Ht 160 cm; Wt 72.0 kg
[~2021-09-04 18:25] MED LIST changes: -PANT40TA3 PO; +PANT40TA52 PO
[2021-09-04] MEDS ORDERED: RT-ALBUTEROL HFA 8.5 GM INHALER IH STA (18:52)
[2021-09-04 18:56] VITALS: BP_SYST 131; BP_SYST 140; BP_SYST 149; BP_DIAS 80; BP_DIAS 82; BP_DIAS 87
[2021-09-04 19:00] LABS: BASOPHILS # (AUTO) 0.1 10^3/uL (0.0-0.1); BASOPHILS % (AUTO) 1 % (0-10); EOSINOPHILS # (AUTO) 0.3 10^3/uL (0.0-0.3); EOSINOPHILS % (AUTO) 3 % (0-10); HEMATOCRIT 49 % (35-52); HEMOGLOBIN 15.1 g/dL (11.5-16.0); LYMPHOCYTES # (AUTO) 2.6 X 10^3 (1.0-4.0); LYMPHOCYTES % (AUTO) 28 % (12-44); MEAN CORPUSCULAR HEMOGLOBIN 23 pg (25-34); MEAN CORPUSCULAR HGB CONC 31 g/dL (32-36); MEAN CORPUSCULAR VOLUME 74 fL (80-99); MEAN PLATELET VOLUME 10.8 fL (9.0-12.2); MONOCYTES # (AUTO) 1.3 X 10^3 (0.0-1.0); MONOCYTES % (AUTO) 14 % (0-12); NEUTROPHILS # (AUTO) 4.8 X 10^3 (1.8-7.8); NEUTROPHILS % (AUTO) 52 % (42-75); PLATELET COUNT 707 10^3/uL (130-400); WHITE BLOOD COUNT 9.2 10^3/uL (4.3-11.0)
[2021-09-04 19:11] LABS: FIBRIN DEGRADATION PRODUCTS 0.59 UG/ML (0.00-0.49); PROTHROMBIN TIME PATIENT 13.6 SEC (12.2-14.7)
[2021-09-04 19:14] LABS: CALCIUM 9.3 MG/DL (8.5-10.1); CREATININE SERUM 0.82 MG/DL (0.60-1.30); POTASSIUM 4.1 MMOL/L (3.6-5.0); TOTAL PROTEIN 7.5 GM/DL (6.4-8.2)
--- NOTE | 2021-09-04 19:21 | Diagnostic Imaging Report ---
Chest 1 view, AP/PA only. Indication: Chest pain. Comparison: 05/25/2018. Findings: Stable asymmetric elevation of the right hemidiaphragm. Visualized lungs are clear. Posterior lower lobes are poorly evaluated by portable radiography. No pleural effusion or pneumothorax. Stable cardiac silhouette. Impression: No acute cardiopulmonary process by portable radiography. Dictated by: Dictated on workstation # [id number]
--- NOTE | 2021-09-04 19:28 | ED Chest Pain ---
General Chief Complaint: Chest Pain Stated Complaint: CHEST PAIN, SOB, DIZZINESS Nursing Triage Note: PT AMBULATORY TO ROOM. PT STATES SHE IS HAVING OFF AND ON CHEST PAIN FOR 6 WEEKS WITH SOB AND DIZZINESS. PT SENT TO ER BY MENTAL HEALTH AIDE AFTER HAVING CHEST XR AND EKG DONE AT [facility] YESTERDAY Source: patient, old records Exam Limitations: no limitations History of Present Illness Date Seen by Provider: Sep 04, 2021 Time Seen by Provider: 18:35 Initial Comments This is 76-year-old woman presents to the emergency room with complaints of intermittent mild left-sided chest pain and dyspnea on exertion present for at least 6 weeks. She also has lightheadedness upon standing and exertion. She was visiting with Dr. Patel for her annual checkup and was communicating the symptoms to him. He expressed concern and obtained an EKG. He then directed her to the emergency room for further evaluation. She had been working with Dr. Chris Haji on a cardiology referral and has an appointment with Dr. Aponte on October 10. She is not having chest pain at present but is short of breath and wheezing. She does have COPD and takes maintenance inhaled medications. She also presents today with tenderness, erythema, and swelling around a varicose vein on the right anterior pierre. This just popped up today. 19:50 - Patient later elaborates that she would be afraid to return home tonight because of some more severe episodes she has had recently. She describes 1 episode in which she was sweeping the porch. She became extremely short of breath and had to go inside and rest. There was another episode that occurred while doing dishes. She became very lightheaded with near syncope and experienced extreme diaphoresis. She was almost unable to walk about 5 feet to a chair to sit. The episode lasted a few minutes. She also had back pain in the lower thoracic spine region during the episode. Patient is a smoker and also drinks the equivalent of 1 to 2 glasses of wine most days. She has not had any formal cardiac evaluation. It was noted in her chart that she has chronic thrombocytosis. She states her doctor in [place] told her her blood was "too thick" and that she should donate blood about once a month. She has never been evaluated by [facility]. Allergies and Home Medications Allergies Coded Allergies: atropine (Verified Allergy, Unknown, 07/11/17) codeine (Verified Allergy, Unknown, 07/11/17) diphenoxylate (Verified Allergy, Unknown, 07/11/17) meperidine (Verified Allergy, Unknown, 07/11/17) Patient Home Medication List Home Medication List Reviewed: Yes Apixaban (Eliquis) 5 Mg Tablet, 5 MG PO BID Prescribed by: CHRIS HAJI on 05/30/18 1255 Budesonide/Formoterol Fumarate (Symbicort 160-4.5 Mcg Inhaler) 10.2 Gm Hfa.aer.ad, 2 PUFF IH BID, (Reported) Entered as Reported by: LADONNA MAIER on 07/11/17 1209 Dexamethasone (Dexamethasone) 4 Mg Tablet, 8 MG PO DAILY Prescribed by: CHRIS HAJI on 05/30/18 1255 Nitrofurantoin Macrocrystal (Nitrofurantoin) 100 Mg Capsule, 100 MG PO BID Prescribed by: CHRIS HAJI on 05/30/18 1255 Pantoprazole Sodium (Pantoprazole Sodium) 40 Mg Tablet.dr, 40 MG PO DAILY, (Reported) Entered as Reported by: ANGELIQUE ARCHER on 03/25/18 0929 Review of Systems Review of Systems Constitutional: no symptoms reported EENTM: No Symptoms Reported Respiratory: See HPI Cardiovascular: See HPI Gastrointestinal: Other (Chronic problems with hiatal hernia) Genitourinary: No Symptoms Reported Musculoskeletal: no symptoms reported Skin: no symptoms reported Psychiatric/Neurological: No Symptoms Reported Endocrine: No Symptoms Reported Hematologic/Lymphatic: No Symptoms Reported Past Qrcwigk-Czqrrn-Kfchtg Hx Patient Social History Tobacco Use?: Yes Tobacco type used: Cigarettes Smoking Status: Current Everyday Smoker Substance use?: No Alcohol Use?: Yes Alcohol type: Wine Alcohol Frequency: Daily Pt feels they are or have been: No Immunizations Up To Date Tetanus Booster (TDap): Unknown Influenza Vaccine Up-to-Date: No; Not Current First/Initial COVID19 Vaccinat: 09/05/20 Second COVID19 Vaccination Braden: 10/03/20 Third COVID19 Vaccination Date: 05/19/21 Seasonal Allergies Seasonal Allergies: No Past Medical History Surgeries: Yes (hemrroid,DNC,CERCLAGE) Abdominal (Dilation of esophageal stricture), Section Respiratory: Yes COPD, Emphysema Currently Using CPAP: No Currently Using BIPAP: No Cardiac: No Neurological: No Female Reproductive Disorders: Denies Genitourinary: No Gastrointestinal: Yes (Esophageal stricture) Colitis, Obstructive Bowel, Hiatal Hernia Musculoskeletal: No Endocrine: No HEENT: No Loss of Vision: Denies Hearing Impairment: Denies Cancer: No Psychosocial: No Integumentary: No Blood Disorders: Yes (Chronic thrombocytosis) Family Medical History Reviewed Nursing Family Hx Cardiovascular disease 19 FATHER Heart Disease Physical Exam Vital Signs Vital Signs - First Documented 09/04/21 18:30 Temp 36.4 Pulse 73 Resp 25 B/P (MAP) 154/102 (119) Pulse Ox 96 O2 Delivery Room Air Capillary Refill : Less Than 3 Seconds Height, Weight, BMI Height: 5'1.00" Weight: 144lbs. 3.0oz. 65.744657zw; 24.00 BMI Method:Actual General Appearance: No Apparent Distress, WD/WN HEENT: PERRL/EOMI, Normal ENT Inspection Neck: Normal Inspection; No Carotid Bruit, No JVD Respiratory: No Accessory Muscle Use, No Respiratory Distress, Wheezing, Other (Prolonged expiratory phase with wheezing) Cardiovascular: Regular Rate, Rhythm, No Edema, No Murmur, Other (Varicosity with surrounding edema, erythema and tenderness on the right pierre) Gastrointestinal: Non Tender, Soft Extremity: Normal Inspection, No Pedal Edema, Other (See cardiovascular above) Neurologic/Psychiatric: Alert, Oriented x3, No Motor/Sensory Deficits, Normal Mood/Affect, 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 Norm as Tested Skin: Normal Color, Warm/Dry, Other (See above) Procedures/Interventions Suture Size: 5-0 Progress/Results/Core Measures Results/Orders Lab Results Laboratory Tests Test 09/04/21 18:34 Range/Units White Blood Count 9.2 4.3-11.0 10^3/uL Red Blood Count 6.62 H 3.80-5.11 10^6/uL Hemoglobin 15.1 11.5-16.0 g/dL Hematocrit 49 35-52 % Mean Corpuscular Volume 74 L 80-99 fL Mean Corpuscular Hemoglobin 23 L 25-34 pg Mean Corpuscular Hemoglobin Concent 31 L 32-36 g/dL Red Cell Distribution Width 21.1 H 10.0-14.5 % Platelet Count 707 H 130-400 10^3/uL Mean Platelet Volume 10.8 9.0-12.2 fL Immature Granulocyte % (Auto) 1 % Neutrophils (%) (Auto) 52 42-75 % Lymphocytes (%) (Auto) 28 12-44 % Monocytes (%) (Auto) 14 H 0-12 % Eosinophils (%) (Auto) 3 0-10 % Basophils (%) (Auto) 1 0-10 % Neutrophils # (Auto) 4.8 1.8-7.8 X 10^3 Lymphocytes # (Auto) 2.6 1.0-4.0 X 10^3 Monocytes # (Auto) 1.3 H 0.0-1.0 X 10^3 Eosinophils # (Auto) 0.3 0.0-0.3 10^3/uL Basophils # (Auto) 0.1 0.0-0.1 10^3/uL Immature Granulocyte # (Auto) 0.1 0.0-0.1 10^3/uL Prothrombin Time 13.6 12.2-14.7 SEC INR Comment 1.0 0.8-1.4 Activated Partial Thromboplast Time 31 24-35 SEC D-Dimer 0.59 H 0.00-0.49 UG/ML Sodium Level 136 135-145 MMOL/L Potassium Level 4.1 3.6-5.0 MMOL/L Chloride Level 104 98-107 MMOL/L Carbon Dioxide Level 19 L 21-32 MMOL/L Anion Gap 13 5-14 MMOL/L Blood Urea Nitrogen 11 7-18 MG/DL Creatinine 0.82 0.60-1.30 MG/DL Estimat Glomerular Filtration Rate 75 BUN/Creatinine Ratio 13 Glucose Level 85 70-105 MG/DL Calcium Level 9.3 8.5-10.1 MG/DL Corrected Calcium 9.3 8.5-10.1 MG/DL Magnesium Level 2.0 1.6-2.4 MG/DL Total Bilirubin 1.0 0.1-1.0 MG/DL Aspartate Amino Transf (AST/SGOT) 26 5-34 U/L Alanine Aminotransferase (ALT/SGPT) 19 0-55 U/L Alkaline Phosphatase 78 40-136 U/L Myoglobin 69.8 10.0-92.0 NG/ML Troponin I < 0.028 <0.028 NG/ML C-Reactive Protein High Sensitivity 1.25 H 0.00-0.50 MG/DL B-Type Natriuretic Peptide 48.2 <100.0 PG/ML Total Protein 7.5 6.4-8.2 GM/DL Albumin 4.0 3.2-4.5 GM/DL My Orders Orders - HELLEN ANDERSON MD Cbc With Automated Diff (09/04/21 18:52) Magnesium (09/04/21 18:52) Chest 1 View, Ap/Pa Only (09/04/21 18:52) Ekg Tracing (09/04/21 18:52) Comprehensive Metabolic Panel (09/04/21 18:52) Myoglobin Serum (09/04/21 18:52) Protime With Inr (09/04/21 18:52) Partial Thromboplastin Time (09/04/21 18:52) O2 (09/04/21 18:52) Monitor-Rhythm Ecg Trace Only (09/04/21 18:52) Lipid Panel (09/05/21 06:00) Ed Iv/Invasive Line Start (09/04/21 18:52) Bnp Pedro (09/04/21 18:52) Troponin I Pedro (09/04/21 18:52) Albuterol Inhaler (Albuterol) (09/04/21 18:52) Orthostatic Vital Signs (Adult (09/04/21 18:52) Fibrin Degradation Products (09/04/21 18:34) Ct Angio Chest W (09/04/21 19:38) Iohexol Injection (Omnipaque 350 Mg/Ml 1 (09/04/21 20:00) Received Contrast (Hold Metformin- Contr (09/04/21 20:00) Ns (Ivpb) (Sodium Chloride 0.9% Ivpb Bag (09/04/21 20:00) Hs C Reactive Protein (09/04/21 19:55) Pantoprazole Injection (Protonix Injecti (09/04/21 20:45) Aspirin Enteric Coated Tablet (Ecotrin T (09/04/21 20:45) Methylprednisolone Sod Succ (Solu-Medrol (09/04/21 20:45) Ceftriaxone 1 Gm Pre-Mix (Rocephin 1 Gm (09/04/21 20:44) Enoxaparin Injection (Lovenox Injectio (09/04/21 21:00) Smear For Path Review (09/04/21 20:56) Medications Given in ED Current Medications Medications Dose Ordered Sig/Aubrie Route Start Time Stop Time Status Last Admin Dose Admin Iohexol 100 ml ONCE ONCE IV 09/04/21 20:00 09/04/21 20:01 DC 09/04/21 20:04 63 ML Methylprednisolone Sodium Succinate 125 mg ONCE ONCE IVP 09/04/21 20:45 09/04/21 20:46 DC 09/04/21 20:55 125 MG Pantoprazole 40 mg ONCE ONCE IV 09/04/21 20:45 09/04/21 20:46 DC 09/04/21 20:55 40 MG Sodium Chloride 100 ml ONCE ONCE IV 09/04/21 20:00 09/04/21 20:01 DC 09/04/21 20:04 80 ML Vital Signs/I&O 09/04/21 09/04/21 09/04/21 09/04/21 18:30 18:56 19:13 20:43 Temp 36.4 Pulse 73 63 77 70 71 Resp 25 23 B/P (MAP) 154/102 (119) 131/80 (97) 142/69 140/82 (101) 149/87 (107) Pulse Ox 96 94 93 O2 Delivery Room Air Room Air Room Air Blood Pressure Mean: 107 Progress Progress Note #1: Time: 19:28 Progress Note Patient is undergoing thorough evaluation. She was not given aspirin because she states she does not tolerate it well with her hiatal hernia. Albuterol inhaler with spacer was administered. Nitroglycerin was not administered as she is not presently having chest pain. Progress Note #2: Time: 19:55 Progress Note D-dimer was mildly elevated. CT angiogram of the chest is being obtained. Patient had a brief episode of right-sided chest pain during my reexamination. Patient did feel some modest improvement in shortness of breath with the albuterol. Patient states she would be scared to return home at this point given the severity of her symptoms. Progress Note #3: Time: 21:03 Progress Note Case was reviewed with Dr. Lucero and Dr. Rader. All are in agreement patient should be admitted due to her persistent concerning symptoms and her significant risk factors. Additional treatments in the ER will include a dose of Solu- Medrol for her COPD, a dose of Rocephin for possible cellulitis of the right lower extremity versus superficial venous thrombosis, Lovenox for potential DVT of the right lower extremity and also for cardiac therapy, and Protonix for GI prophylaxis. Peripheral smear was ordered to further evaluate her thrombocytosis. Further studies to be obtained tomorrow include right lower extremity venous Doppler, bilateral carotid Dopplers, and Lexiscan stress test. A repeat troponin and basic labs will be obtained in the morning. Patient will be kept n.p.o. after midnight. We discussed CODE STATUS, and patient elects a full CODE STATUS. Patient is in agreement with this plan and feels much more comfortable with being admitted. She declined a nicotine patch stating she only smokes 2 or 3 cigarettes a day. She does not think her alcohol consumption is extensive enough to warrant a withdrawal protocol. She is not exhibiting any features of withdrawal at this time. Initial ECG Impression Date: Sep 04, 2021 Initial ECG Impression Time: 18:31 Initial ECG Rate: 71 Initial ECG Rhythm: Normal Sinus Comment Sinus rhythm with no ST elevation or depression. Right bundle branch block. No axis deviation. Diagnostic Imaging Diagonstic Imaging: Xray Plain Films/CT/US/NM/MRI: chest Comments Chest x-ray viewed by me and report reviewed. See report below: NAME: ANTONYKACEY MED REC#: [id number] PT STATUS: REG ER : 1945 PHYSICIAN: HELLEN ANDERSON MD ADMIT DATE: 09/04/21/ER Draft Date of Exam:09/04/21 CHEST 1 VIEW, AP/PA ONLY Chest 1 view, AP/PA only. Indication: Chest pain. Comparison: 05/25/2018. Findings: Stable asymmetric elevation of the right hemidiaphragm. Visualized lungs are clear. Posterior lower lobes are poorly evaluated by portable radiography. No pleural effusion or pneumothorax. Stable cardiac silhouette. Impression: No acute cardiopulmonary process by portable radiography. Dictated on workstation # [id number] Dict: 09/04/211913 Trans: 09/04/211919 [facility] [id number] Interpreted by: CHANTAL YUN MD Diagonstic Imaging: CT Plain Films/CT/US/NM/MRI: chest Comments CT chest reviewed by me and report reviewed. See report below: NAME: KACEY ANTONY MED REC#: [id number] PT STATUS: REG ER : 1945 PHYSICIAN: HELLEN ANDERSON MD ADMIT DATE: 09/04/21/ER Signed Date of Exam:09/04/21 CT ANGIO CHEST W EXAMINATION: CT angiography of the chest. TECHNIQUE: Contrast enhanced thin section helical images were obtained through the chest with intravenous contrast timed for the optimal opacification of the arterial structures per CTA protocol. Post-processing, reconstructions and interpretation of angiographic images of the vessels was performed. 3D MIP reconstructions were performed and reviewed. All CT scans use one or more of the following dose optimizing techniques: automated exposure control, MA and/or KvP adjustment based on patient size and exam type or iterative reconstruction. HISTORY: Chest pain, SHEN COMPARISON: None available. FINDINGS: Vascular: No filling defects within the pulmonary arteries. Thoracic aorta is normal in caliber. Calcification of the aorta and coronary vessels. Thyroid: The thyroid is normal. Mediastinum: Heart size is normal without significant pericardial effusion. No suspicious lymphadenopathy. Lungs and airways: The lungs are clear without consolidation, pleural effusion or pneumothorax. There is atelectasis within the dependent lungs. There is elevation of the right hemidiaphragm. The airways are normal. Upper abdomen: There is a moderate hiatal hernia. Musculoskeletal: Degenerative changes of the spine without suspicious osseous lesion or compression fracture. IMPRESSION: No findings of pulmonary embolus or other acute abnormality in the chest. Dictated by: Dictated on workstation # [id number] Dict: 09/04/212009 Trans: 09/04/212013 [id number] Interpreted by: TEN MCARTHUR DO Electronically signed by: TEN MCARTHUR DO 09/04/212013 Departure Communication (Admissions) Time/Spoke to Admitting Phy: 20:40 Dr. Lucero Time/Spoke to Consulting Phy: 20:35 Dr. Rader Impression Primary Impression: Chest pain Qualified Codes: R07.9 - Chest pain, unspecified Additional Impressions: Dyspnea on exertion Lightheadedness COPD exacerbation Thrombocytosis Edema of right lower extremity Disposition: ADMITTED INPATIENT Condition: Improved Admissions Decision to Admit Reason: Admit from ER (General) Decision to Admit/Date: Sep 04, 2021 Time/Decision to Admit Time: 20:40 Departure-Patient Inst. Referrals: CHRIS HAJI MD (PCP/Family) Primary Care Physician Copy Copies To 1: CHRIS HAJI MD, JOSHUA T MD Sep 04, 2021 19:28
[2021-09-04] MEDS ORDERED: HOLD METFORMIN - RECEIVED CONTRAST 20 ML VIAL IV SCH (20:00)
[2021-09-04] MEDS ORDERED: NS 100 ML (IVPB) BAG IV ONE (20:00)
[2021-09-04] MEDS ORDERED: IOHEXOL 350 MG/ML 100 ML (OMNIPAQUE 350) VIAL IV ONE (20:00)
--- NOTE | 2021-09-04 20:14 | Diagnostic Imaging Report ---
EXAMINATION: CT angiography of the chest. TECHNIQUE: Contrast enhanced thin section helical images were obtained through the chest with intravenous contrast timed for the optimal opacification of the arterial structures per CTA protocol. Post-processing, reconstructions and interpretation of angiographic images of the vessels was performed. 3D MIP reconstructions were performed and reviewed. All CT scans use one or more of the following dose optimizing techniques: automated exposure control, MA and/or KvP adjustment based on patient size and exam type or iterative reconstruction. HISTORY: Chest pain, SHEN COMPARISON: None available. FINDINGS: Vascular: No filling defects within the pulmonary arteries. Thoracic aorta is normal in caliber. Calcification of the aorta and coronary vessels. Thyroid: The thyroid is normal. Mediastinum: Heart size is normal without significant pericardial effusion. No suspicious lymphadenopathy. Lungs and airways: The lungs are clear without consolidation, pleural effusion or pneumothorax. There is atelectasis within the dependent lungs. There is elevation of the right hemidiaphragm. The airways are normal. Upper abdomen: There is a moderate hiatal hernia. Musculoskeletal: Degenerative changes of the spine without suspicious osseous lesion or compression fracture. IMPRESSION: No findings of pulmonary embolus or other acute abnormality in the chest. Dictated by: Dictated on workstation # [id number]
[2021-09-04] MEDS ORDERED: cefTRIAXone 1 GM PRE-MIX 50 ML IV STA (20:44)
[2021-09-04] MEDS ORDERED: methylPREDNISolone 125 MG (Solu-MEDROL) VIAL IVP ONE (20:45)
[2021-09-04] MEDS ORDERED: PANTOPRAZOLE 40 MG (PROTONIX) VIAL IV ONE (20:45)
[2021-09-04] MEDS ORDERED: ASPIRIN E.C. 325 MG (ECOTRIN) TABLET PO ONE (20:45)
[2021-09-04] MEDS ORDERED: ENOXAPARIN 80 MG/0.8 ML (LOVENOX) SYR SC ONE (21:00)
[2021-09-04 21:20] LABS: ABSOLUTE RETIC # 129 10e9/uL (24-90); BASOPHILS # (AUTO) 0.1 10^3/uL (0.0-0.1); BASOPHILS % (AUTO) 1 % (0-10); EOSINOPHILS # (AUTO) 0.3 10^3/uL (0.0-0.3); EOSINOPHILS % (AUTO) 3 % (0-10); HEMATOCRIT 49 % (35-52); HEMOGLOBIN 14.5 g/dL (11.5-16.0); LYMPHOCYTES # (AUTO) 2.6 10^3/uL (1.0-4.0); LYMPHOCYTES % (AUTO) 27 % (12-44); MEAN CORPUSCULAR HEMOGLOBIN 23 pg (25-34); MEAN CORPUSCULAR HGB CONC 30 g/dL (32-36); MEAN CORPUSCULAR VOLUME 77 fL (80-99); MEAN PLATELET VOLUME 10.5 fL (9.0-12.2); MONOCYTES # (AUTO) 1.4 10^3/uL (0.0-1.0); MONOCYTES % (AUTO) 14 % (0-12); NEUTROPHILS # (AUTO) 5.4 10^3/uL (1.8-7.8); NEUTROPHILS % (AUTO) 55 % (42-75); PLATELET COUNT 640 10^3/uL (130-400); RETICULOCYTE % 2.03 % (0.50-2.40); WHITE BLOOD COUNT 9.8 10^3/uL (4.3-11.0)
[2021-09-04 21:42] VITALS: BP 137/79
[2021-09-04] MEDS ORDERED: morphine INJ 4 MG/ML 1 ML (VIAL/SYRINGE) IV PRN (22:00)
[2021-09-04] MEDS ORDERED: RT-ALBUTEROL HFA 8.5 GM INHALER IH PRN (22:00)
[2021-09-04] MEDS ORDERED: ONDANSETRON 4 MG/2 ML (SDV) Z0FRAN IVP PRN (22:00)
[2021-09-04] MEDS ORDERED: NITROGLYCERIN 0.4 MG SL TABS BTL 25'S SL PRN (22:00)
[2021-09-04 22:04] LABS: BASOPHILS % (MANUAL) 1 %; EOSINOPHILS % (MANUAL) 3 %; LYMPHOCYTES % (MANUAL) 25 %; MONOCYTES % (MANUAL) 6 %; NEUTROPHILS % (MANUAL) 65 %
[2021-09-04 22:05] LABS: HYPOCHROMASIA SLIGHT
[2021-09-04 23:41] VITALS: BP 130/79
[2021-09-05 04:00] VITALS: BP 114/66
[2021-09-05 06:35] LABS: BASOPHILS % (AUTO) 1 % (0-10); EOSINOPHILS % (AUTO) 0 % (0-10); HEMATOCRIT 50 % (35-52); HEMOGLOBIN 15.1 g/dL (11.5-16.0); LYMPHOCYTES % (AUTO) 13 % (12-44); MEAN CORPUSCULAR HEMOGLOBIN 23 pg (25-34); MEAN CORPUSCULAR HGB CONC 30 g/dL (32-36); MEAN CORPUSCULAR VOLUME 75 fL (80-99); MEAN PLATELET VOLUME 10.7 fL (9.0-12.2); MONOCYTES # (AUTO) 0.1 10^3/uL (0.0-1.0); MONOCYTES % (AUTO) 1 % (0-12); NEUTROPHILS # (AUTO) 6.8 10^3/uL (1.8-7.8); NEUTROPHILS % (AUTO) 85 % (42-75); PLATELET COUNT 625 10^3/uL (130-400); SMEAR SCAN COMMENT YES
[2021-09-05 06:42] LABS: CHLORIDE 106 MMOL/L (98-107); POTASSIUM 4.2 MMOL/L (3.6-5.0); SODIUM 138 MMOL/L (135-145)
[2021-09-05 06:43] LABS: CALCIUM 9.6 MG/DL (8.5-10.1)
[2021-09-05 06:44] LABS: GLUCOSE 149 MG/DL (70-105); TRIGLYCERIDES 75 MG/DL (<150); VLDL CHOLESTEROL 15 MG/DL (5-40)
[2021-09-05 06:45] LABS: CARBON DIOXIDE 20 MMOL/L (21-32)
[2021-09-05 06:48] LABS: CREATININE SERUM 0.77 MG/DL (0.60-1.30); GFR ESTIMATED 80
[2021-09-05 06:49] LABS: BUN/CREATININE RATIO 13; CHOLESTEROL 172 MG/DL (< 200)
[2021-09-05 06:50] LABS: HDL CHOLESTEROL 45 MG/DL (40-60)
[2021-09-05] MEDS: CATHETER FLUSH 10 ML SYR IV PRN (07:44)
[2021-09-05 08:05] VITALS: BP 146/80
[2021-09-05] MEDS ORDERED: REGADENOSON 0.4 MG/5 ML SYR (LEXISCAN) IV ONE ×2 (08:05→08:15)
--- NOTE | 2021-09-05 09:13 | Cardiology Stress Test Report ---
Stress Test Report Date of Procedure/Referring: Date of Procedure: Sep 05, 2021 PCP Christo Lucero MD Admitting Physician No,Local Physician Indications: Chest Pain Baseline Heart Rate: 78 Baseline Blood Pressure: Blood Pressure Systolic: 146 Blood Pressure Diastolic: 80 Baseline Vitals Vital Signs Date Time Temp Pulse Resp B/P (MAP) Pulse Ox O2 Delivery O2 Flow Rate FiO2 09/04/21 18:30 36.4 73 25 154/102 (119) 96 Room Air Baseline EKG: Baseline EKG: RBBB Summary After explaining the procedure to the patient, she signed a consent and then brought to the stress nuclear laboratory. Patient received 0.4 mg Lexiscan for stress test, ECG, heart rate and blood pressure were monitored continuously. Resting and stress dose of radio tracer were injected, imaging was acquired and reviewed in short axis, horizontal long axis and vertical long axis views. TID: 0.81 SSS: 0 SDS: 0 EF: 50 1. Patient tolerated Lexiscan well, had some dyspnea during Lexiscan injection 2. Baseline right bundle branch block persisted during test 3. No significant ischemia or infarction on SPECT images 4. Normal left ventricular size, EF 50% SHERRIE TOHMAS MD Sep 05, 2021 09:13
--- NOTE | 2021-09-05 09:53 | Diagnostic Imaging Report ---
PROCEDURE: US carotid duplex, bilateral. INDICATION: 76-year-old female, chest pain, dyspnea on exertion. History of tobacco use. Bilateral weakness along with left-sided numbness. Dizziness and headache. Speech difficulty, confusion, memory loss. TECHNIQUE: Multiple real-time grayscale images were obtained over the carotid arteries in various projections bilaterally. Additional spectral analysis and color Doppler and Duplex images were also obtained. CORRELATION: None FINDINGS: Color images demonstrate mild scattered atherosclerotic change to be present. Most pronounced at the carotid bifurcations. Right carotid circulation: The right common carotid artery is normal in course and caliber. The right internal carotid artery is patent. No hemodynamically significant stenosis is present at this time. Right external carotid artery is patent. Left carotid circulation: The left common carotid artery is normal in course and caliber. The left internal carotid artery is patent. No hemodynamically significant stenosis is present at this time. Left external carotid artery is patent. Antegrade flow in the bilateral vertebral arteries. There is incidental note of what appears be likely multiple thyroid nodules. Largest on the right 1.3 x 1.1 x 1.3 cm. This is incompletely assessed but has a somewhat complex appearance suggested. DOPPLER (peak systolic velocity M/S Right Left CCA .88 .68 ICA Proximal .46 .53 ICA Mid .69 .59 ICA Distal .62 1.16 RATIO .78 1.69 ECA 1.06 1.22 VERT .96 .48 IMPRESSION: 1. Mild atherosclerosis involving bilateral carotid arteries, particularly at the carotid bifurcations. 2. No sonographic evidence to suggest a hemodynamically significant stenosis of the internal carotid arteries at this time. 3. Incidental findings of thyroid nodules. At least one on the right has a somewhat complex appearance. Dedicated thyroid ultrasound imaging recommended. Parameters based on the consensus panel Osorio-Scale and Doppler ultrasound criteria published May 2003, Radiology, Volume 229. Dictated by: Dictated on workstation # [id number]
--- NOTE | 2021-09-05 10:22 | Diagnostic Imaging Report ---
INDICATION: Chest pain, dyspnea on exertion TECHNIQUE: Multiple real-time grayscale images were obtained over the right lower extremity in various projections, bilaterally. Additional duplex Doppler and color Doppler images were also obtained. CORRELATION STUDY: None FINDINGS: Color and grayscale sonographic images demonstrate no intraluminal defect within the visualized portion of the common femoral, superficial femoral and/or popliteal veins to suggest thrombus formation. These vessels demonstrate normal response to compression and augmentation. No soft tissue fluid collection. IMPRESSION: 1. Negative for deep venous thrombosis of the right leg. Dictated by: Dictated on workstation # [id number]
[2021-09-05] MEDS: PANTOPRAZOLE 40 MG (PROTONIX) VIAL IV SCH (10:29)
[2021-09-05] MEDS: ASPIRIN E.C. 81 MG (ECOTRIN) TAB PO SCH (10:29)
--- NOTE | 2021-09-05 10:57 | Consultation-Cardiology ---
HPI-Cardiology Cardiology Consultation Date of Consultation 09/05/21 Date of Admission Time Seen by Provider: 08:00 Indication: Shortness of breath, dizziness HPI 76-year-old lady with history of tobaccoism, patient has been having abdominal discomfort, occasional chest pressure, reporting episodes of dizziness on standing up and increasing shortness of breath and wheezing on exertion which has been worsening recently. Patient was seen by Dr. Ford and she was referred for evaluation for chest pain. Reporting some discomfort and heaviness occasionally, worsening dyspnea on exertion over the past few months. Patient has history of chronic thrombocytosis. No previous cardiology work-up was done, she was scheduled for evaluation with Dr. Aponte on October 10, 2021 Home Medications & Allergies Allergies: Coded Allergies: atropine (Verified Allergy, Unknown, 07/11/17) codeine (Verified Allergy, Unknown, 07/11/17) diphenoxylate (Verified Allergy, Unknown, 07/11/17) meperidine (Verified Allergy, Unknown, 07/11/17) Home Medication List Reviewed: Yes EBI-Vlftli-Yvldya Hx Patient Social History Marital Status: Employed/Student: retired Smoking Status: Current Someday Smoker Type Used: Cigarettes 2nd Hand Smoke Exposure: Yes Recent Hopitalizations: No Have you traveled recently?: No Alcohol Use?: Yes Immunizations Up To Date Tetanus Booster (TDap): Unknown Date of Influenza Vaccine: Jun 04, 2021 Past Medical History Discussed below Family Medical History Significant Family History: Heart Disease Family History: Cardiovascular disease 19 FATHER Review of Systems-General Review of Systems Constitutional: see HPI, malaise, weakness EENTM: see HPI, no symptoms reported Respiratory: see HPI, cough, dyspnea on exertion; No hemoptysis, No orthopnea, No phlegm; short of breath; No stridor; wheezing; No other Cardiovascular: see HPI, chest pain, edema; No Hx of Intervention, No palpitations, No syncope, No vascular heart diseas, No other Gastrointestinal: no symptoms reported, see HPI Genitourinary: no symptoms reported, see HPI Musculoskeletal: no symptoms reported, see HPI Skin: no symptoms reported, see HPI Psychiatric/Neurological: No Symptoms Reported, See HPI Reviewed Test Results Reviewed Test Results Lab Laboratory Tests Test 09/04/21 18:34 09/04/21 21:08 09/05/21 00:40 09/05/21 05:40 Range/Units White Blood Count 9.2 9.8 8.0 4.3-11.0 10^3/uL Red Blood Count 6.62 H 6.34 H 6.62 H 3.80-5.11 10^6/uL Hemoglobin 15.1 14.5 15.1 11.5-16.0 g/dL Hematocrit 49 49 50 35-52 % Mean Corpuscular Volume 74 L 77 L 75 L 80-99 fL Mean Corpuscular Hemoglobin 23 L 23 L 23 L 25-34 pg Mean Corpuscular Hemoglobin Concent 31 L 30 L 30 L 32-36 g/dL Red Cell Distribution Width 21.1 H 20.4 H 20.4 H 10.0-14.5 % Platelet Count 707 H 640 H 625 H 130-400 10^3/uL Mean Platelet Volume 10.8 10.5 10.7 9.0-12.2 fL Immature Granulocyte % (Auto) 1 1 1 % Neutrophils (%) (Auto) 52 55 85 H 42-75 % Lymphocytes (%) (Auto) 28 27 13 12-44 % Monocytes (%) (Auto) 14 H 14 H 1 0-12 % Eosinophils (%) (Auto) 3 3 0 0-10 % Basophils (%) (Auto) 1 1 1 0-10 % Neutrophils # (Auto) 4.8 5.4 6.8 1.8-7.8 10^3/uL Lymphocytes # (Auto) 2.6 2.6 1.0 1.0-4.0 10^3/uL Monocytes # (Auto) 1.3 H 1.4 H 0.1 0.0-1.0 10^3/uL Eosinophils # (Auto) 0.3 0.3 0.0 0.0-0.3 10^3/uL Basophils # (Auto) 0.1 0.1 0.0 0.0-0.1 10^3/uL Immature Granulocyte # (Auto) 0.1 0.1 0.1 0.0-0.1 10^3/uL Prothrombin Time 13.6 12.2-14.7 SEC INR Comment 1.0 0.8-1.4 Activated Partial Thromboplast Time 31 24-35 SEC D-Dimer 0.59 H 0.00-0.49 UG/ML Sodium Level 136 138 135-145 MMOL/L Potassium Level 4.1 4.2 3.6-5.0 MMOL/L Chloride Level 104 106 98-107 MMOL/L Carbon Dioxide Level 19 L 20 L 21-32 MMOL/L Anion Gap 13 12 5-14 MMOL/L Blood Urea Nitrogen 11 10 7-18 MG/DL Creatinine 0.82 0.77 0.60-1.30 MG/DL Estimat Glomerular Filtration Rate 75 80 BUN/Creatinine Ratio 13 13 Glucose Level 85 149 H 70-105 MG/DL Calcium Level 9.3 9.6 8.5-10.1 MG/DL Corrected Calcium 9.3 8.5-10.1 MG/DL Magnesium Level 2.0 1.6-2.4 MG/DL Total Bilirubin 1.0 0.1-1.0 MG/DL Aspartate Amino Transf (AST/SGOT) 26 5-34 U/L Alanine Aminotransferase (ALT/SGPT) 19 0-55 U/L Alkaline Phosphatase 78 40-136 U/L Myoglobin 69.8 10.0-92.0 NG/ML Troponin I < 0.028 < 0.028 <0.028 NG/ML C-Reactive Protein High Sensitivity 1.25 H 0.00-0.50 MG/DL B-Type Natriuretic Peptide 48.2 <100.0 PG/ML Total Protein 7.5 6.4-8.2 GM/DL Albumin 4.0 3.2-4.5 GM/DL Neutrophils % (Manual) 65 % Lymphocytes % (Manual) 25 % Monocytes % (Manual) 6 % Eosinophils % (Manual) 3 % Basophils % (Manual) 1 % Percent Immature Platelet Fraction 9.9 H 0.0-7.6 % Hypochromasia SLIGHT Absolute Reticulocyte Count 129 H 24-90 10e9/uL Percent Reticulocyte Count 2.03 0.50-2.40 % Triglycerides Level 75 <150 MG/DL Cholesterol Level 172 < 200 MG/DL LDL Cholesterol Direct 118 1-129 MG/DL VLDL Cholesterol 15 5-40 MG/DL HDL Cholesterol 45 40-60 MG/DL Smear Scan YES Physical Exam Physical Exam Vital Signs Vital Signs - First Documented 09/04/21 18:30 Temp 36.4 Pulse 73 Resp 25 B/P (MAP) 154/102 (119) Pulse Ox 96 O2 Delivery Room Air Capillary Refill : Less Than 3 Seconds Height, Weight, BMI Height: 5'1.00" Weight: 144lbs. 3.0oz. 65.324689zd; 28.20 BMI Method:Actual General Appearance: No Apparent Distress, WD/WN HEENT: PERRL/EOMI, Normal ENT Inspection Neck: Normal Inspection; No Carotid Bruit, No JVD Respiratory: No Accessory Muscle Use, No Respiratory Distress, Wheezing, Other (Prolonged expiratory phase with wheezing) Cardiovascular: Regular Rate, Rhythm, No Edema, No Murmur, Other (Varicosity with surrounding edema, erythema and tenderness on the right pierre) Gastrointestinal: Non Tender, Soft Extremity: Normal Inspection, No Pedal Edema, Other (See cardiovascular above) Neurologic/Psychiatric: Alert, Oriented x3, No Motor/Sensory Deficits, Normal 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 No significant ischemia or infarction on SPECT images with ejection fraction 50%. Dyspnea on exertion, worsening recently, probably underlying exacerbation of COPD. Plan to evaluate 2D echo Orthostatic lightheadedness and dizziness, no full syncope was reported. Probably vasovagal, had a carotid ultrasound done which was negative. Patient underwent CT angiogram of the chest and venous Doppler of the lower extremity which both were negative. Carotid ultrasound showed mild bilateral disease nonobstructive disease. Incidental finding of thyroid nodule History of thrombocytosis, chronic, followed and managed by primary care physician History of adhesions in the abdomen. Followed by primary care physician Tobaccoism, educated and instructed on smoking cessation Clinical Quality Measures AMI/AHF: ASA po Prior to arrival: SHERRIE Ren MD Sep 05, 2021 10:57
[2021-09-05 12:00] VITALS: BP 164/77
[2021-09-05] MEDS ORDERED: BUDE10.7 INH (14:51)
[2021-09-05 16:59] VITALS: BP 142/67
[2021-09-05 20:10] VITALS: BP 142/67
--- NOTE | 2021-09-05 20:23 | History & Physical-Hospitalist ---
History of Present Illness HPI/Chief Complaint Vanna Chaney is a 76 year old female with PMH COPD, tobacco abuse, GERD, who presented with chest pain. She has also had shortness of breath, worse with exertion. She also has a chronic cough which has worsened recently. She reports lightheadeness and dizziness. She denies fevers and chills. She denies nausea and vomiting. She denies diarrhea. She has had some abdominal discomfort. She denies dysuria. She reports leg swelling. Source: patient Exam Limitations: no limitations Date Seen 09/05/21 Time Seen by a Provider: 11:35 Attending Physician Christo Lucero MD PCP No,Local Physician Referring Physician Date of Admission Sep 04, 2021 at 20:40 Home Medications & Allergies Home Medications Reviewed patient Home Medication Reconciliation performed by pharmacy medication reconciliations optical lab technician and/or nursing. Patients Allergies have been reviewed. Allergies Allergies Coded Allergies atropine (Verified Allergy, Unknown, 07/11/17) codeine (Verified Allergy, Unknown, 07/11/17) diphenoxylate (Verified Allergy, Unknown, 07/11/17) meperidine (Verified Allergy, Unknown, 07/11/17) Past Satsgfs-[id number]-Xdjbkp Hx Patient Social History Marrital Status: Employed/Student: retired Tobacco Use?: Yes Tobacco type used: Cigarettes Smoking Status: Current Someday Smoker Substance use?: No Alcohol Use?: Yes Alcohol type: Wine Additional alcohol type: Occasional Alcohol Frequency: Once in a while Pt feels they are or have been: No Immunizations Up To Date Date of Influenza Vaccine: Jun 04, 2021 First/Initial COVID19 Vaccinat: 2020 Second COVID19 Vaccination Braden: 2020 Tetanus Booster (TDap): Less Than 5 Years Seasonal Allergies Seasonal Allergies: No Current Status status: No Advance Directives: No Communicates: Verbally Primary Language: Italian Preferred Spoken Language: Italian Is interpretation needed?: No Sensory deficits: Vision impairment Past Medical History Surgeries: Abdominal (Dilation of esophageal stricture), Section COPD, Emphysema Currently Using CPAP: No Currently Using BIPAP: No Colitis, Obstructive Bowel, Hiatal Hernia Loss of Vision: Denies Hearing Impairment: Denies Blood Disorders: Yes (Chronic thrombocytosis) Family Medical History Reviewed Nursing Family Hx Cardiovascular disease 19 FATHER Heart Disease Review of Systems Constitutional: no symptoms reported EENTM: no symptoms reported Respiratory: cough, dyspnea on exertion, short of breath Cardiovascular: chest pain, edema Gastrointestinal: no symptoms reported Genitourinary: no symptoms reported Musculoskeletal: no symptoms reported Skin: no symptoms reported Psychiatric/Neurological: No Symptoms Reported Physical Exam Physical Exam Vital Signs Vital Signs - First Documented 09/04/21 18:30 Temp 36.4 Pulse 73 Resp 25 B/P (MAP) 154/102 (119) Pulse Ox 96 O2 Delivery Room Air Capillary Refill : Less Than 3 Seconds Height, Weight, BMI Height: 5'1.00" Weight: 144lbs. 3.0oz. 65.379095an; 28.20 BMI Method:Actual General Appearance: No Apparent Distress, WD/WN HEENT: PERRL/EOMI, Pharynx Normal Neck: Normal Inspection, Supple Respiratory: No Respiratory Distress, Wheezing Cardiovascular: Regular Rate, Rhythm, No Murmur Gastrointestinal: Normal Bowel Sounds, Soft Extremity: Normal Inspection, Pedal Edema Neurologic/Psychiatric: Alert, No Motor/Sensory Deficits, Normal Mood/Affect Skin: Normal Color, Warm/Dry Results Results/Procedures Labs Laboratory Tests 09/04/21 18:34 09/04/21 21:08 09/05/21 05:40 Patient resulted labs reviewed. Imaging: Reviewed Imaging Report Assessment/Plan Admission Diagnosis Chest pain Admission Status: Observation Assessment and Plan Chest pain Troponin remains normal Echo with normal EF, slightly elevated PASP Stress test this morning Cardiology following COPD with acute exacerbation Flu and COVID negative Chest imaging with no evidence of acute abnormalities, no infiltrates Steroids MAT protocol Tobacco abuse Nicotine patch DVT prophylaxis: Lovenox Diagnosis/Problems Diagnosis/Problems (1) Chest pain Status: Acute Qualifiers: Chest pain type: unspecified Qualified Codes: R07.9 - Chest pain, unspecified (2) COPD exacerbation Status: Acute (3) Smoker Status: Chronic Clinical Quality Measures AMI/AHF: ASA po Prior to arrival: DOROTHEA Mccarty MD Sep 05, 2021 20:23
[2021-09-05 20:40] VITALS: BP 145/66
[2021-09-05] MEDS ORDERED: NICOTINE 14 MG (NICODERM) PATCH TD PRN (20:45)
[2021-09-06] VITALS: BP 146/68
[2021-09-06 04:00] VITALS: BP 140/75
[2021-09-06] MEDS ORDERED: predniSONE 20 MG TAB PO SCH (07:00)
[2021-09-06 07:58] VITALS: BP 168/90
[2021-09-06] MEDS: ASPIRIN E.C. 81 MG (ECOTRIN) TAB PO SCH (08:49)
[2021-09-06] MEDS: PANTOPRAZOLE 40 MG (PROTONIX) VIAL IV SCH (08:50)
[2021-09-06] MEDS: CATHETER FLUSH 10 ML SYR IV PRN (08:50)
[2021-09-06] MEDS ORDERED: IPRA3AMP31 IH (10:44)
[2021-09-06] MEDS ORDERED: PRED10TA22 PO (10:44)
[2021-09-06 11:43] VITALS: BP 161/80
--- NOTE | 2021-09-06 12:19 | Cardiology Progress Note ---
Subjective Date Seen by Provider: Sep 06, 2021 Time Seen by Provider: 12:16 Subjective/Events-last exam Patient is laying down in bed, complaining of orthostatic dizziness, cough and shortness of breath. Review of Systems General: No Chills, No Night Sweats, No Fatigue, No Malaise, No Appetite, No Other HEENT: No Head Aches, No Visual Changes, No Eye Pain, No Ear Pain, No Dysph nuria, No Sinus Congestion, No Post Nasal Drip, No Sore Throat, No Other Pulmonary: Dyspnea, Cough; No Pleuritic Chest Pain, No Other Cardiovascular: No: Chest Pain, Palpitations, Orthopnea, Paroxysmal Noc. Dyspne a, Edema, Lt Headedness, Other Objective-Cardiology Exam Last Set of Vital Signs Vital Signs 09/06/21 11:43 Temp 35.7 Pulse 66 Resp 20 B/P (MAP) 161/80 (107) Pulse Ox 94 O2 Delivery Room Air I&O Intake and Output 09/06/21 00:00 Intake Total 700 ml Output Total 1600 ml Balance -900 ml Intake Oral 700 ml Output Urine Total 1600 ml # Voids 3 General: Alert, Oriented X3, Cooperative HEENT: Atraumatic, PERRLA Neck: Supple, No JVD, No Thyromegaly Lungs: Normal Air Movement, Other (RAQUEL RHONCHI) Heart: Regular Rate, Normal S1, Normal S2, No Murmurs Abdomen: Normal Bowel Sounds, Soft, No Tenderness, No Hepatosplenomegaly, No Masses Extremities: No Clubbing, No Cyanosis, No Edema, Normal Pulses, No Tenderness/Swelling Skin: No Rashes, No Breakdown, No Significant Lesion Neuro: Normal Gait, Normal Speech, Strength at 5/5 X4 Ext, Normal Tone, Sensation Intact Psych/Mental Status: Mental Status NL, Mood NL A/P-Cardiology Admission Diagnosis Chest pain Shortness of breath COPD Dizziness Assessment/Plan Chest pain, nonspecific etiology, resembling angina, patient underwent Lexiscan stress test, had some chest pain or shortness of breath during Lexiscan injection. No significant ischemia or infarction on SPECT images with ejection fraction 50%. Dyspnea on exertion, worsening recently, probably underlying exacerbation of COPD. Bilateral rhonchi, CT scan did not show infiltrate, probably has underlying bronchitis. Managed by medical team. 2D echo was done on September 05, 2021 showing normal LV size and systolic function, ejection fraction 60 to 65%, PA pressure 20 mmHg. Orthostatic lightheadedness and dizziness, no full syncope was reported. Probably vasovagal, had a carotid ultrasound done which was negative. Patient underwent CT angiogram of the chest and venous Doppler of the lower extremity which both were negative. Carotid ultrasound showed mild bilateral disease nonobstructive disease. Incidental finding of thyroid nodule History of thrombocytosis, chronic, followed and managed by primary care physician History of adhesions in the abdomen. Followed by primary care physician Tobaccoism, educated and instructed on smoking cessation SHERRIE THOMAS MD Sep 06, 2021 12:19
[2021-09-06 13:35] VITALS: BP 161/80
[2021-09-06] MEDS ORDERED: ENOXAPARIN 40 MG/0.4 ML (LOVENOX) SYR SC SCH (21:00)
--- NOTE | 2021-09-10 14:07 | Physician Query-Final Dx ---
09/10/21 1407: Final Diagnosis Give Final Diagnosis Please give Final Diagnosis DOROTHEA KNIGHT MD 09/11/21 0018: Final Diagnosis Give Final Diagnosis Chest pain, COPD exacerbation JESSICAJulSep 10, 2021 14:07 DOROTHEA KNIGHT MD Sep 11, 2021 00:18
== END 2021-09-06 13:35 | disposition home or self-care (01) ==
LOC: EDUNIT# 18:25 → ER 18:27 → 4TH 20:40
PROVIDERS: ADMIT Internal Medicine; ATTEND Internal Medicine
DX: R07.9 Chest pain, unspecified (principal); R42 Dizziness and giddiness; R06.02 Shortness of breath; R06.00 Dyspnea, unspecified; I77.9 Disorder of arteries and arterioles, unspecified; J44.1 Chronic obstructive pulmonary disease with (acute) exacerbation; K21.9 Gastro-esophageal reflux disease without esophagitis; F17.210 Nicotine dependence, cigarettes, uncomplicated; Z79.899 Other long term (current) drug therapy; Z79.01 Long term (current) use of anticoagulants; Z82.49 Family history of ischemic heart disease and other diseases of the circulatory system
CPT/HCPCS: 71045; 71275; 78452; 80048; 80053; 80061; 82728; 83540; 83550; 83735; 83874; 83880; 84484 ×2; 85007; 85025 ×2; 85027; 85045; 85055; 85379; 85610; 85730; 86141; 87081; 87636; 93005 ×3; 93017; 93041; 93306; 93880; 93971; 94640 ×2; 94664; 94760; 99284; A9502; 36415; 96372; 96374; 96375; G0378

== ENCOUNTER → 2021-09-11 | Outpatient (CLI) | payer MEDICARE, OTHER ==
[~2021-09-11] MED LIST changes: +BUDE10.7 INH; +IPRA3AMP31 IH; +PRED10TA22 PO
[2021-09-11 12:40] LABS: FREE T4 (FREE THYROXINE) 0.95 NG/DL (0.70-1.48)
== END ==
LOC: LAB 11:08
PROVIDERS: ATTEND Family Medicine
DX: D50.9 Iron deficiency anemia, unspecified (principal); E04.1 Nontoxic single thyroid nodule; D47.3 Essential (hemorrhagic) thrombocythemia; R79.89 Other specified abnormal findings of blood chemistry
CPT/HCPCS: 36415; 81206; 81270; 84439; 84443

== ENCOUNTER → 2021-09-18 | Outpatient (CLI) | payer MEDICARE, OTHER ==
--- NOTE | 2021-09-18 11:44 | Diagnostic Imaging Report ---
PROCEDURE: US Thyroid. TECHNIQUE: Multiple Real-time grayscale images were obtained of the thyroid in various projections. INDICATION: Multiple thyroid nodules. COMPARISON: None. FINDINGS: The right thyroid lobe measures 5.6 x 1.6 x 1.7 cm. Background echotexture is homogenous and appears normal. Vascularity is normal. Multiple nodules are present: 1. There is a 1.4 x 1.5 x 1.2 cm nodule with macrocalcification in the right mid thyroid which is solid and hypoechoic with lobulated borders (TI-RADS 5). 2. There is a mostly cystic nodule in the inferior right thyroid which measures up to 9 mm in diameter. The isthmus measures 2 mm and appears normal. The left thyroid lobe measures 4.7 x 1.6 x 1.9 cm. Echogenicity and vascularity are normal. There are 2 nodules seen: 1. There is a 6 mm hypoechoic mixed solid and cystic nodule in the superior left thyroid. 2. There is a circumscribed hypoechoic solid nodule in the inferior left thyroid which measures up to 5 mm. IMPRESSION: 1. TI-RADS 5 nodule in the mid right thyroid qualifies for FNA. 2. No other nodules qualify for followup. Dictated by: Dictated on workstation # [id number]
== END ==
LOC: RAD 11:15
PROVIDERS: ATTEND Family Medicine
DX: E04.2 Nontoxic multinodular goiter (principal)
CPT/HCPCS: 76536

== ENCOUNTER → 2021-10-02 | Outpatient (CLI) | payer MEDICARE, OTHER ==
[~2021-10-02] VITALS: Ht 157 cm; Wt 68.0 kg
[~2021-10-02] MED LIST changes: +LIDOCAINE 1% INJ 20 ML VIAL INJ ONE; +LIDOCAINE 1% INJ 20 ML VIAL ONE
--- NOTE | 2021-10-02 15:20 | Diagnostic Imaging Report ---
INDICATION: Right thyroid nodule. Patient presents for ultrasound-guided fine needle aspiration. Patient was brought to the procedure room and placed on the table in the supine position. Ultrasound imaging of the right neck was performed to evaluate appropriate entry site. The right neck was then prepped and draped in the usual sterile fashion. A small amount of 1% lidocaine was utilized for local anesthesia. A single pass was made into the nodule in the right lobe of the thyroid utilizing 25-gauge needle and fine-needle aspiration technique. After the first pass, patient began experiencing significant coughing. She states that she has COPD. A second pass was attempted, but patient experienced uncontrollable coughing. Therefore, the procedure was terminated. Two passes will be sent to lab for testing. IMPRESSION: Limited ultrasound-guided fine-needle aspiration of right lobe thyroid nodule. Patient experienced significant coughing, and therefore the procedure had to be terminated. We will wait to see the results of the FNA. If this is indeterminate, we could attempt to repeat the ultrasound-guided fine-needle aspiration at a later date. Dictated by: Dictated on workstation # [id number]
== END ==
LOC: RAD 13:57
PROVIDERS: ATTEND Family Medicine
DX: E04.1 Nontoxic single thyroid nodule (principal)
CPT/HCPCS: 10005

== ENCOUNTER 2021-10-08 11:07 | Day surgery (SDC) | payer MEDICARE, OTHER ==
[2021-10-08] VITALS (12 sets, daily range): BP systolic 105–137; BP diastolic 58–87
[~2021-10-08] VITALS: Ht 157 cm; Wt 68.0 kg
[~2021-10-08 11:07] MED LIST changes: -LIDOCAINE 1% INJ 20 ML VIAL ONE; +MIDAZOLAM 2 MG/2 ML (VERSED) VIAL INJ ONE; +NS IV 1000 ML 1,000 ML IV SCH; +fentaNYL INJ 100 MCG/2 ML AMP INJ ONE
[2021-10-08 11:44] LABS: ABSOLUTE RETIC # 129 10e9/uL (24-90); BASOPHILS # (AUTO) 0.1 10^3/uL (0.0-0.1); BASOPHILS % (AUTO) 1 % (0-10); EOSINOPHILS # (AUTO) 0.3 10^3/uL (0.0-0.3); EOSINOPHILS % (AUTO) 3 % (0-10); HEMATOCRIT 50 % (35-52); HEMOGLOBIN 15.3 g/dL (11.5-16.0); LYMPHOCYTES % (AUTO) 25 % (12-44); MEAN CORPUSCULAR HEMOGLOBIN 24 pg (25-34); MEAN CORPUSCULAR HGB CONC 31 g/dL (32-36); MEAN CORPUSCULAR VOLUME 77 fL (80-99); MEAN PLATELET VOLUME 10.5 fL (9.0-12.2); MONOCYTES # (AUTO) 0.9 10^3/uL (0.0-1.0); MONOCYTES % (AUTO) 11 % (0-12); NEUTROPHILS # (AUTO) 4.9 10^3/uL (1.8-7.8); NEUTROPHILS % (AUTO) 60 % (42-75); PLATELET COUNT 760 10^3/uL (130-400); RETICULOCYTE % 2.01 % (0.50-2.40); WHITE BLOOD COUNT 8.1 10^3/uL (4.3-11.0)
[2021-10-08 12:08] LABS: PROTHROMBIN TIME PATIENT 13.6 SEC (12.2-14.7)
[2021-10-08 12:23] LABS: EOSINOPHILS % (MANUAL) 3 %; HYPOCHROMASIA SLIGHT; LYMPHOCYTES % (MANUAL) 31 %; MICROCYTOSIS SLIGHT; MONOCYTES % (MANUAL) 7 %; NEUTROPHILS % (MANUAL) 59 %; POIKILOCYTOSIS MARKED
--- NOTE | 2021-10-08 13:27 | Pre-Op Note & Conscious Sedat ---
Pre-Operative Progress Note H&P Reviewed The H&P was reviewed, patient examined and no changes noted. Date H&P Reviewed: Oct 08, 2021 Time H&P Reviewed: 12:00 Pre-Op Diagnosis: leukocytosis Conscious Sedation Pre-Proced Time 12:00 ASA Score 2 For ASA 3 and 4: Consider anesthesia and medical clearance. Also, for patients with a history of failed moderate sedation consider anesthesia. Airway Lungs Heart ASA score ASA 1: a normal healthy patient ASA 2: a patient with a mild systemic disease (mid diabetes, controlled hypertension, obesity ASA 3: a patient with a severe systemic disease that limits activity (angina, COPD, prior Myocardial infarction) ASA 4: a patient with an incapacitating disease that is a constant threat to life (CHF, renal failure) ASA 5: a moribund patient not expected to survive 24 hrs. (ruptured aneurysm) ASA 6: a declared brain- patient whose organs are being harvested. For emergent operations, add the letter E after the classification Mallampati Classification Grade 2 Sedation Plan Analgesia, Amnesia, Plan communicated to team members, Discussed options with patient/fam, Discussed risks with patient/fam The patient is an appropriate candidate to undergo the planned procedure, sedation, and anesthesia. The patient immediately re-assessed prior to indication. KASSIE CASEY MD Oct 08, 2021 13:27
--- NOTE | 2021-10-08 13:57 | Diagnostic Imaging Report ---
INDICATION: Leukocytosis. PROCEDURE: The patient presents for CT-guided bone marrow aspiration and core biopsy. The patient was brought to this CT suite, placed on the table in the prone position. Axial imaging through the pelvis was performed to evaluate appropriate entry site. Low back was prepped and draped in the usual sterile fashion. Small amount 1% lidocaine was utilized for local anesthesia. The procedure was performed utilizing conscious sedation with radiology nursing and constant patient monitoring. The patient was given a total of 75 mcg of fentanyl intravenously and 1 mg of Versed intravenously. Total procedure time was approximately 10 minutes. Bone marrow biopsy needle was advanced and placed with its tip along the posterior cortex of the right iliac bone. The needle was advanced through the cortex utilizing the bone marrow drill. Two bone marrow aspirates were then obtained. Next, the bone marrow drill was utilized to obtain a bone marrow core biopsy. Needle was removed and hemostasis was obtained using manual compression. The patient tolerated the procedure well and left the department in stable condition. IMPRESSION: Successful CT-guided bone marrow aspiration and core biopsy, utilizing conscious sedation. The pathology results are currently pending. Dictated by: Dictated on workstation # [id number]
[2021-10-08] MEDS ORDERED: HYDROcodone/APAP 5 MG/325 MG (LORTAB) TAB PO PRN (14:00)
== END 2021-10-08 15:45 | disposition home or self-care (01) ==
LOC: RAD 11:07
PROVIDERS: ATTEND Nurse Practitioner Adult Health
DX: D47.3 Essential (hemorrhagic) thrombocythemia (principal); D72.829 Elevated white blood cell count, unspecified; J44.9 Chronic obstructive pulmonary disease, unspecified; F17.210 Nicotine dependence, cigarettes, uncomplicated; Z79.52 Long term (current) use of systemic steroids
CPT/HCPCS: 36415; 38222; 77012; 85007; 85027; 85045; 85055; 85610; 85730; 88237; 88264; 99156

== ENCOUNTER 2022-09-10 13:18 | Day surgery (SDC) | payer MEDICARE, OTHER ==
[~2022-09-10] VITALS: Ht 154.9 cm; Wt 65.8 kg
[2022-09-10] VITALS (7 sets, daily range): BP systolic 97–116; BP diastolic 40–60
[~2022-09-10 13:18] MED LIST changes: -LIDOCAINE 1% INJ 20 ML VIAL INJ ONE; -MIDAZOLAM 2 MG/2 ML (VERSED) VIAL INJ ONE; -NS IV 1000 ML 1,000 ML IV SCH; -fentaNYL INJ 100 MCG/2 ML AMP INJ ONE
--- NOTE | 2022-09-10 13:35 | ED Abdominal Pain ---
General Stated Complaint: PAINFUL TO BREATHE Source of Information: Patient Exam Limitations: No Limitations History of Present Illness Date Seen by Provider: Sep 10, 2022 Time Seen by Provider: 13:32 Initial Comments Patient is a 77-year-old female with a history of small bowel obstruction, C- section who presents ED with abdominal pain. Pain is generalized but worse in her lower abdomen. This pain started on Wednesday described as sharp with constant crampy pain. Patient states she had surgery on her left wrist a week ago from this past Wednesday. Was placed on Vicodin and stopped this past Wednesday. Starte d having pain on Wednesday. She took laxatives around Wednesday had bowel movements last night but continue having pain. She reports nausea without vomiting. Reports mucousy stool. Denies of any hematemesis, hematochezia. she states this pain feels very similar to when she had a small bowel obstruction with a history of adhesions. She reports adhesion removal from Dr. Guy at [facility]. She started having chills and body aches last night. Denies any urinary symptoms, chest pain, shortness of breath, cough, headache, dizziness. Patient refusing anything for pain at this time. Allergies and Home Medications Allergies Coded Allergies: atropine (Verified Allergy, Unknown, 07/11/17) codeine (Verified Allergy, Unknown, 07/11/17) diphenoxylate (Verified Allergy, Unknown, 07/11/17) meperidine (Verified Allergy, Unknown, 07/11/17) Patient Home Medication List Home Medication List Reviewed: Yes Budesonide/Glycopyr/Formoterol (Breztri Aerosphere Inhaler) 10.7 Gm Hfa.aer.ad, 2 PUFF INH BID, (Reported) Entered as Reported by: YARIEL SAHU on 09/05/21 1451 Ipratropium/Albuterol Sulfate (Iprat-Albut 0.5-3(2.5) mg/3 ml) 3 Ml Ampul.neb, 3 ML IH Q6H PRN for SHORTNESS OF BREATH Prescribed by: DOROTHEA KNIGHT on 09/06/21 1044 Pantoprazole Sodium (Pantoprazole Sodium) 40 Mg Tablet.dr, 40 MG PO DAILY, (Reported) Entered as Reported by: ANGELIQUE ARCHER on 03/25/18 0929 Prednisone (Prednisone) 10 Mg Tab.ds.pk, 10 MG PO DAILY Prescribed by: DOROTHEA KNIGHT on 09/06/21 1044 Review of Systems Review of Systems Constitutional: chills, malaise, weakness EENTM: No Double Vision Respiratory: Denies Cough, Denies Shortness of Air Cardiovascular: Denies Chest Pain, Denies Edema Gastrointestinal: Abdominal Pain; Denies Diarrhea; Nausea; Denies Vomiting Genitourinary: Denies Burning, Denies Discharge, Denies Frequency, Denies Flank Pain Musculoskeletal: No back pain, No joint pain Skin: No change in color, No change in hair/nails All Other Systems Reviewed Negative Unless Noted: Yes Past Htbdcot-Joqhzq-Donneb Hx Immunizations Up To Date Tetanus Booster (TDap): Unknown First/Initial COVID19 Vaccinat: 2020 Second COVID19 Vaccination Braden: 2020 Third COVID19 Vaccination Date: Booster Seasonal Allergies Seasonal Allergies: No Past Medical History Surgeries: Yes (hemrroid,DNC,CERCLAGE) Abdominal, Section Respiratory: Yes COPD, Emphysema Currently Using CPAP: No Currently Using BIPAP: No Cardiac: No Neurological: No Female Reproductive Disorders: Denies Genitourinary: No Gastrointestinal: Yes (Esophageal stricture) Colitis, Obstructive Bowel, Hiatal Hernia Musculoskeletal: No Endocrine: No HEENT: No Loss of Vision: Denies Hearing Impairment: Denies Cancer: No Psychosocial: No Integumentary: No Blood Disorders: Yes (Chronic thrombocytosis) Family Medical History Cardiovascular disease 19 FATHER Heart Disease Physical Exam Vital Signs Vital Signs - First Documented 09/10/22 13:19 Temp 36.6 Pulse 97 Resp 18 B/P (MAP) 121/74 (90) O2 Delivery Room Air Capillary Refill : Height/Weight/BMI Height: 5'1.00" Weight: 144lbs. 3.0oz. [id number]; 27.58 BMI Method:Actual General Appearance: WD/WN, no apparent distress HEENT: PERRL/EOMI, normal ENT inspection, TMs normal, pharynx normal Neck: non-tender, full range of motion, supple Respiratory: chest non-tender, normal breath sounds, no respiratory distress, no accessory muscle use, wheezing Cardiovascular: no edema, no gallop, no JVD, tachycardia Gastrointestinal: soft, no organomegaly, no pulsatile mass, tenderness (Generalized abdominal tenderness. No rigidity or guarding) Extremities: normal range of motion, non-tender, normal inspection, no pedal edema Back: normal inspection, no CVA tenderness Neurologic/Psychiatric: licensed staff mft II-XII nml as tested, no motor/sensory deficits, alert, normal mood/affect, oriented x 3 Skin: normal color Procedures/Interventions Suture Size: 5-0 Progress/Results/Core Measures Results/Orders Lab Results Laboratory Tests Test 09/10/22 13:20 Range/Units White Blood Count 22.3 H 4.3-11.0 10^3/uL Red Blood Count 4.16 3.80-5.11 10^6/uL Hemoglobin 15.2 11.5-16.0 g/dL Hematocrit 44 35-52 % Mean Corpuscular Volume 106 H 80-99 fL Mean Corpuscular Hemoglobin 37 H 25-34 pg Mean Corpuscular Hemoglobin Concent 35 32-36 g/dL Red Cell Distribution Width 12.3 10.0-14.5 % Platelet Count 347 130-400 10^3/uL Mean Platelet Volume 10.3 9.0-12.2 fL Immature Granulocyte % (Auto) 1 % Neutrophils (%) (Auto) 92 H 42-75 % Lymphocytes (%) (Auto) 3 L 12-44 % Monocytes (%) (Auto) 4 0-12 % Eosinophils (%) (Auto) 0 0-10 % Basophils (%) (Auto) 0 0-10 % Neutrophils # (Auto) 20.5 H 1.8-7.8 10^3/uL Lymphocytes # (Auto) 0.6 L 1.0-4.0 10^3/uL Monocytes # (Auto) 0.9 0.0-1.0 10^3/uL Eosinophils # (Auto) 0.0 0.0-0.3 10^3/uL Basophils # (Auto) 0.1 0.0-0.1 10^3/uL Immature Granulocyte # (Auto) 0.2 H 0.0-0.1 10^3/uL Neutrophils % (Manual) 89 % Lymphocytes % (Manual) 2 % Monocytes % (Manual) 4 % Toxic Granulation 2+ Platelet Estimate ADEQUATE Macrocytosis MODERATE Sodium Level 137 135-145 MMOL/L Potassium Level 4.5 3.6-5.0 MMOL/L Chloride Level 106 98-107 MMOL/L Carbon Dioxide Level 18 L 21-32 MMOL/L Anion Gap 13 5-14 MMOL/L Blood Urea Nitrogen 29 H 7-18 MG/DL Creatinine 1.23 0.60-1.30 MG/DL Estimat Glomerular Filtration Rate 46 BUN/Creatinine Ratio 24 Glucose Level 125 H 70-105 MG/DL Calcium Level 9.9 8.5-10.1 MG/DL Corrected Calcium 10.1 8.5-10.1 MG/DL Total Bilirubin 1.0 0.1-1.0 MG/DL Aspartate Amino Transf (AST/SGOT) 29 5-34 U/L Alanine Aminotransferase (ALT/SGPT) 28 0-55 U/L Alkaline Phosphatase 152 H 40-136 U/L Total Protein 7.4 6.4-8.2 GM/DL Albumin 3.8 3.2-4.5 GM/DL Lipase 13 8-78 U/L My Orders Orders - EMELIA DAVID Cbc With Automated Diff (09/10/22 13:30) Comprehensive Metabolic Panel (09/10/22 13:30) Lipase (09/10/22 13:30) Ct Abdomen/Pelvis W (09/10/22 13:30) Iv/Invasive Line Insertion .IV INSERT (09/10/22 13:30) Ondansetron Injection (Zofran Injectio (09/10/22 13:45) Ua Culture If Indicated (09/10/22 13:32) Manual Differential (09/10/22 13:20) Iohexol Injection (Omnipaque 350 Mg/Ml 1 (09/10/22 14:15) Ns (Ivpb) (Sodium Chloride 0.9% Ivpb Bag (09/10/22 14:15) Piperacillin Sodium/Tazobactam (Zosyn Vi (09/10/22 15:15) Nothing By Mouth (09/10/22 Dinner) Ed Admission (Communication) (09/10/22 15:15) Piperacillin Sodium/Tazobactam (Zosyn Vi (09/10/22 15:17) Ns (Ivpb) (Sodium Chloride 0.9% Ivpb Bag (09/10/22 15:17) Medications Given in ED Current Medications Medications Dose Ordered Sig/Aubrie Route Start Time Stop Time Status Last Admin Dose Admin Iohexol 100 ml ONCE ONCE IV 09/10/22 14:15 09/10/22 14:16 DC 09/10/22 14:29 75 ML Ondansetron HCl 4 mg ONCE ONCE IVP 09/10/22 13:45 09/10/22 13:46 DC 09/10/22 14:04 4 MG Piperacillin Sod/ Tazobactam Sod 4.5 gm/Sodium Chloride 100 ml @ 200 mls/hr ONCE ONCE IV 09/10/22 15:15 09/10/22 15:44 UNV 09/10/22 15:19 200 MLS/HR Sodium Chloride 100 ml ONCE ONCE IV 09/10/22 14:15 09/10/22 14:16 DC 09/10/22 14:29 80 ML Vital Signs/I&O 09/10/22 13:19 Temp 36.6 Pulse 97 Resp 18 B/P (MAP) 121/74 (90) O2 Delivery Room Air Departure Communication (Admissions) Time/Spoke to Admitting Phy: 15:14 Patient was discussed with Dr. Luis general surgeon. Patient will be taken to the OR for lap appendectomy. Patient was started on Zosyn. Currently NPO. Last ate ice chips right before arrival. She reports eating last night around 8. Not currently on blood thinners Communication (PCP) Patient white blood count 22,000. CT of the pelvis shows an large appendix 1.1 cm in diameter. No perforation. Concerning for diverticulitis without perforation or abscess. She has tenderness that is generalized worse in the right and left lower quadrant with guarding. Ileus noted as well. No vomiting. History of small bowel obstruction. Patient is currently n.p.o. at this time. She refused pain medication. She is not currently on blood thinners. She does have a history of COPD and smoking. Oxygen between 93 to 95%. Patient is resting comfortably at this time. Patient was discussed with Dr. Luis who recommended laparoscopy appendectomy and admission for observation. Patient was started on Zosyn. Consent was signed Impression Primary Impression: Appendicitis Additional Impression: Diverticulitis Disposition: ADMITTED INPATIENT Condition: Stable Admissions Decision to Admit Reason: Admit from ER (General) Decision to Admit/Date: Sep 10, 2022 Time/Decision to Admit Time: 15:14 Departure-Patient Inst. Referrals: PREETI RANKIN MD (PCP/Family) Primary Care Physician EMELIA DAVID Sep 10, 2022 13:35
[2022-09-10 13:37] LABS: BASOPHILS # (AUTO) 0.1 10^3/uL (0.0-0.1); BASOPHILS % (AUTO) 0 % (0-10); EOSINOPHILS % (AUTO) 0 % (0-10); HEMATOCRIT 44 % (35-52); HEMOGLOBIN 15.2 g/dL (11.5-16.0); LYMPHOCYTES # (AUTO) 0.6 10^3/uL (1.0-4.0); LYMPHOCYTES % (AUTO) 3 % (12-44); MEAN CORPUSCULAR HEMOGLOBIN 37 pg (25-34); MEAN CORPUSCULAR HGB CONC 35 g/dL (32-36); MEAN CORPUSCULAR VOLUME 106 fL (80-99); MEAN PLATELET VOLUME 10.3 fL (9.0-12.2); MONOCYTES # (AUTO) 0.9 10^3/uL (0.0-1.0); MONOCYTES % (AUTO) 4 % (0-12); NEUTROPHILS # (AUTO) 20.5 10^3/uL (1.8-7.8); NEUTROPHILS % (AUTO) 92 % (42-75); PLATELET COUNT 347 10^3/uL (130-400); WHITE BLOOD COUNT 22.3 10^3/uL (4.3-11.0)
[2022-09-10] MEDS ORDERED: ONDANSETRON 4 MG/2 ML (SDV) Z0FRAN IVP ONE (13:45)
[2022-09-10 13:51] LABS: LYMPHOCYTES % (MANUAL) 2 %; MONOCYTES % (MANUAL) 4 %; NEUTROPHILS % (MANUAL) 89 %
[2022-09-10 13:52] LABS: ALBUMIN 3.8 GM/DL (3.2-4.5); PLATELET ESTIMATE ADEQUATE; POTASSIUM 4.5 MMOL/L (3.6-5.0); TOXIC GRANULATION/VACUOLAZATIO 2+
[2022-09-10 13:53] LABS: CALCIUM 9.9 MG/DL (8.5-10.1)
[2022-09-10 13:55] LABS: TOTAL PROTEIN 7.4 GM/DL (6.4-8.2)
[2022-09-10 13:58] LABS: CREATININE SERUM 1.23 MG/DL (0.60-1.30)
[2022-09-10] MEDS ORDERED: IOHEXOL 350 MG/ML 100 ML (OMNIPAQUE 350) VIAL IV ONE (14:15)
[2022-09-10] MEDS ORDERED: NS 100 ML (IVPB) BAG IV ONE (14:15)
--- NOTE | 2022-09-10 14:58 | Diagnostic Imaging Report ---
PROCEDURE: CT abdomen and pelvis with contrast. TECHNIQUE: Multiple contiguous axial images were obtained through the abdomen and pelvis after administration of intravenous contrast. Auto Exposure Controls were utilized during the CT exam to meet ALARA standards for radiation dose reduction. All CT scans use one or more of the following dose optimizing techniques: Automated exposure control, MA and/or KvP adjustment based on patient size and exam type or iterative reconstruction. INDICATION: Generalized abdominal pain. COMPARISON: 05/25/2018. FINDINGS: There is airspace consolidation in the right lower lobe. There is elevation of the right hemidiaphragm. The heart is normal in size. There is a large hiatal hernia containing about half of the stomach. The liver demonstrates no focal lesions. The spleen appears normal. The pancreas is normal. The adrenal glands appear normal. The kidneys demonstrate no hydronephrosis. No enhancing lesions are seen. There are multiple distended loops of small bowel. No definitive transition point is seen. Wall thickening of the colon is thought to be due to nondistention. There is an enlarged appendix measuring up to 1.1 cm in diameter, concerning for appendicitis (image 114, series 2). No adjacent fluid collections are seen. There is also marked diverticulosis of the descending and sigmoid colon. There is focal wall thickening, and a portion of the sigmoid colon concerning for diverticulitis (image 149, series 2). There is trace free fluid in the pelvis. No free air is seen. The aorta is normal in caliber. There is mild atherosclerosis. There is grade 2 anterolisthesis at L4-L5. There are degenerative changes in the spine. IMPRESSION: 1. Enlarged appendix concerning for acute appendicitis without findings of perforation. 2. Diverticulosis with focal wall thickening in the sigmoid colon concerning for acute diverticulitis. If the clinical findings are not compatible with diverticulitis, consider follow-up colonoscopy. 3. Multiple prominent loops of small bowel throughout the abdomen. No definite transition point is seen. This may represent ileus, with low-grade small bowel obstruction not excluded. 4. Airspace consolidation in the right lower lobe, most likely atelectasis, possibly pneumonia. 5. Large hiatal hernia. Dictated by: Dictated on workstation # [id number]
[2022-09-10] MEDS ORDERED: PIPERACILLIN SODIUM/TAZOBACTAM 4.5 GM in NS (IVPB) 100 ML IV ONE (15:15)
[2022-09-10] MEDS ORDERED: NS (IVPB) 100 ML ONE (15:17)
[2022-09-10] MEDS ORDERED: PIPERACILLIN/TAZO 4.5 GM VIAL (ZOSYN) IV ONE (15:17)
[2022-09-10] MEDS ORDERED: LACTATED RINGERS 1,000 ML IV SCH (16:00)
[2022-09-10] MEDS ORDERED: LIDOCAINE/EPI 1%-1:100,000 (XYLOCAINE) 20ML ONE (16:07)
[2022-09-10] MEDS ORDERED: ALBU18HF2 INH (16:11)
[2022-09-10] MEDS ORDERED: VALS80TA31 PO (16:11)
[2022-09-10] MEDS ORDERED: HYDR500C2 PO ×2 (16:11)
[2022-09-10] MEDS ORDERED: FLUT1DIS27 INH (16:11)
[2022-09-10] MEDS ORDERED: ROCURONIUM 50 MG/5 ML (ZEMURON) VIAL IV ONE (16:17)
[2022-09-10] MEDS ORDERED: proPOfol 200 MG/20 ML (DIPRIVAN) VIAL IV ONE (16:17)
[2022-09-10] MEDS ORDERED: ONDANSETRON 4 MG/2 ML (SDV) Z0FRAN ONE (16:17)
[2022-09-10] MEDS ORDERED: MIDAZOLAM 2 MG/2 ML (VERSED) VIAL ONE (16:17)
[2022-09-10] MEDS ORDERED: LIDOCAINE PF 2% 5 ML (XYLOCAINE) VIAL ONE (16:17)
[2022-09-10] MEDS ORDERED: fentaNYL INJ 100 MCG/2 ML AMP ONE (16:17)
--- NOTE | 2022-09-10 16:30 | Consultation - Surgery ---
History of Present Illness History of Present Illness Patient Consulted On(alden/time) 09/10/22 16:22 Time Seen by Provider: 16:01 History of Present Illness Surgery asked to consult regarding appendicitis. HPI per ED: Patient is a 77-year-old female with a history of small bowel obstruction, who presents ED with abdominal pain. Pain is generalized but worse in her lower abdomen. This pain started on Wednesday described as sharp with constant crampy pain. Patient states she had surgery on her left wrist a week ago from this past Wednesday. Was placed on Vicodin and stopped this past Wednesday. Started having pain on Wednesday. She took laxatives around Wednesday had bowel movements last night but continue having pain. She reports nausea without vomiting. Reports mucousy stool. Denies of any hematemesis, hematochezia. she states this pain feels very similar to when she had a small bowel obstruction with a history of adhesions. She reports adhesion removal from Dr. Guy at [facility]. She started having chills and body aches last night. Denies any urinary symptoms, chest pain, shortness of breath, cough, headache, dizziness. Patient refusing anything for pain at this time. Pt is well known to me, I saw her twice in 2018 for SBO. She had surgery for SBO at [place] and has not had any problems since 2018. When I spoke to pt she stated pains started Wednesday, but may have been masked by the pain medications she is taking. She thought pain was just constipation. She tried laxatives; which made her have BMs but did not help the pain. Pain got worse and worse until yesterday when it "sort of went away", she ate soup and salad and then pain became severe. Pain at its worst was 7 out of 10; it was only 2 on Wednesday. RLQ she describes sharp intense pain. Nothing helped the pain, movements did not make worse. She states this pain is not like the pain she had in 2018. Allergies and Home Medications Allergies Coded Allergies: atropine (Verified Allergy, Unknown, 07/11/17) codeine (Verified Allergy, Unknown, 07/11/17) diphenoxylate (Verified Allergy, Unknown, 07/11/17) meperidine (Verified Allergy, Unknown, 07/11/17) Patient Home Medication List Home Medication List Reviewed: Yes Albuterol Sulfate (Ventolin Hfa) 90 Mcg Hfa.aer.ad, 1 PUFF INH BID, (Reported) Entered as Reported by: YARIEL SAHU on 09/10/221610 Last Action: Reviewed Fluticasone/Salmeterol (Advair 500-50 Diskus) 500 Mcg-50 Mcg/Dose Blst.w.dev, 1 PUFF INH BID, (Reported) Entered as Reported by: YARIEL SAHU on 09/10/221610 Last Action: Reviewed Hydroxyurea (Hydroxyurea) 500 Mg Capsule, 500 MG PO DRAPER,TU,WE,FR,SA, (Reported) Entered as Reported by: YARIEL SAHU on 09/10/221610 Last Action: Reviewed Hydroxyurea (Hydroxyurea) 500 Mg Capsule, 500 MG PO BID-, (Reported) Entered as Reported by: YARIEL SAHU on 09/10/221610 Last Action: Reviewed Pantoprazole Sodium (Pantoprazole Sodium) 40 Mg Tablet.dr, 40 MG PO DAILY, (Reported) Entered as Reported by: ANGELIQUE ARCHER on 03/25/18 0929 Last Action: Reviewed Valsartan (Valsartan) 80 Mg Tablet, 80 MG PO HS, (Reported) Entered as Reported by: YARIEL SAHU on 09/10/221610 Last Action: Reviewed Discontinued Medications Budesonide/Glycopyr/Formoterol (Breztri Aerosphere Inhaler) 10.7 Gm Hfa.aer.ad, 2 PUFF INH BID, (Reported) Discontinued Reason: Duplicate Order Entered as Reported by: YARIEL SAHU on 09/05/21 2481 Last Action: Discontinued Ipratropium/Albuterol Sulfate (Iprat-Albut 0.5-3(2.5) mg/3 ml) 3 Ml Ampul.neb, 3 ML IH Q6H PRN for SHORTNESS OF BREATH Discontinued Reason: Duplicate Order Prescribed by: DOROTHEA KNIGHT on 09/06/21 104 Last Action: Discontinued Prednisone (Prednisone) 10 Mg Tab.ds.pk, 10 MG PO DAILY Discontinued Reason: Duplicate Order Prescribed by: DOROTHEA KNIGHT on 09/06/21 104 Last Action: Discontinued Past Flocncx-Dxxoqo-Lpgcxr Hx Patient Social History Smoking Status: Heavy Tobacco Smoker Type Used: Cigarettes 2nd Hand Smoke Exposure: Yes Recent Hopitalizations: No Alcohol Use?: Yes Have you traveled recently?: No Immunizations Up To Date Tetanus Booster (TDap): Unknown Date of Influenza Vaccine: Jun 04, 2021 Seasonal Allergies Seasonal Allergies: No Surgeries History of Surgeries: Yes (hemrroid,DNC,CERCLAGE) Surgeries: Abdominal, Section Respiratory History of Respiratory Disorde: Yes Respiratory Disorders: COPD, Emphysema Cardiovascular History of Cardiac Disorders: No Neurological History of Neurological Disord: No Reproductive System Female Reproductive Disorders: Denies Genitourinary History of Genitourinary Disor: No Gastrointestinal History of Gastrointestinal Di: Yes (Esophageal stricture) Gastrointestinal Disorders: Colitis, Obstructive Bowel, Hiatal Hernia Musculoskeletal History of Musculoskeletal Dis: No Endocrine History of Endocrine Disorders: No HEENT History of HEENT Disorders: No Loss of Vision: Denies Hearing Impairment: Denies Cancer History of Cancer: No Psychosocial History of Psychiatric Problem: No Integumentary History of Skin or Integumenta: No Blood Transfusions History of Blood Disorders: Yes (Chronic thrombocytosis) Family Medical History Significant Family History: Heart Disease Family Medial History: Cardiovascular disease 19 FATHER Review of Systems-General Constitutional: No chills, No diaphoresis, No fever EENTM: No blurred vision, No mouth swelling, No epistaxis Respiratory: No cough, No short of breath Cardiovascular: No chest pain, No palpitations Gastrointestinal: abdominal pain, nausea; No vomiting Genitourinary: No dysuria, No frequency, No hematuria Musculoskeletal: back pain, joint pain, joint swelling Skin: No change in color, No change in hair/nails Psychiatric/Neurological: Denies Anxiety, Denies Depressed, Denies Headache, Denies Tremors Physical Exam-General Problems Physical Exam Vital Signs Vital Signs - First Documented 09/10/22 13:19 Temp 36.6 Pulse 97 Resp 18 B/P (MAP) 121/74 (90) O2 Delivery Room Air Capillary Refill : Less Than 3 Seconds General Appearance: WD/WN, moderate distress (secondary to pain) Eyes: Bilateral Eye PERRL, Bilateral Eye EOMI HEENT: pharynx normal; No scleral icterus (R), No scleral icterus (L) Neck: non-tender Respiratory: lungs clear, no respiratory distress, no accessory muscle use, decreased breath sounds (right base) Cardiovascular: regular rate, rhythm, no murmur Gastrointestinal: soft, no organomegaly, tenderness (RLQ) Rectal: deferred Back: no CVA tenderness, no vertebral tenderness Extremities: no pedal edema, no calf tenderness, normal capillary refill Neurologic/Psychiatric: no motor/sensory deficits, alert, normal mood/affect, oriented x 3 Skin: normal color, warm/dry Lymphatic: no adenopathy (neck, axilla or groin) Data Review Labs Laboratory Tests 09/10/22 13:20: White Blood Count 22.3H, Red Blood Count 4.16, Hemoglobin 15.2, Hematocrit 44, Mean Corpuscular Volume 106H, Mean Corpuscular Hemoglobin 37H, Mean Corpuscular Hemoglobin Concent 35, Red Cell Distribution Width 12.3, Platelet Count 347, Mean Platelet Volume 10.3, Immature Granulocyte % (Auto) 1, Neutrophils (%) (Auto) 92H, Lymphocytes (%) (Auto) 3L, Monocytes (%) (Auto) 4, Eosinophils (%) (Auto) 0, Basophils (%) (Auto) 0, Neutrophils # (Auto) 20.5H, Lymphocytes # (Auto) 0.6L, Monocytes # (Auto) 0.9, Eosinophils # (Auto) 0.0, Basophils # (A uto) 0.1, Immature Granulocyte # (Auto) 0.2H, Neutrophils % (Manual) 89, Lymphocytes % (Manual) 2, Monocytes % (Manual) 4, Toxic Granulation 2+, Platelet Estimate ADEQUATE, Macrocytosis MODERATE, Sodium Level 137, Potassium Level 4.5, Chloride Level 106, Carbon Dioxide Level 18L, Anion Gap 13, Blood Urea Nitrogen 29H, Creatinine 1.23, Estimat Glomerular Filtration Rate 46, BUN/Creatinine Ratio 24, Glucose Level 125H, Calcium Level 9.9, Corrected Calcium 10.1, Total Bilirubin 1.0, Aspartate Amino Transf (AST/SGOT) 29, Alanine Aminotransferase (ALT/SGPT) 28, Alkaline Phosphatase 152H, Total Protein 7.4, Albumin 3.8, Lipase 13 Radiology Date of Exam:09/10/22 CT ABDOMEN/PELVIS W PROCEDURE: CT abdomen and pelvis with contrast. TECHNIQUE: Multiple contiguous axial images were obtained through the abdomen and pelvis after administration of intravenous contrast. Auto Exposure Controls were utilized during the CT exam to meet ALARA standards for radiation dose reduction. All CT scans use one or more of the following dose optimizing techniques: Automated exposure control, MA and/or KvP adjustment based on patient size and exam type or iterative reconstruction. INDICATION: Generalized abdominal pain. COMPARISON: 05/25/2018. FINDINGS: There is airspace consolidation in the right lower lobe. There is elevation of the right hemidiaphragm. The heart is normal in size. There is a large hiatal hernia containing about half of the stomach. The liver demonstrates no focal lesions. The spleen appears normal. The pancreas is normal. The adrenal glands appear normal. The kidneys demonstrate no hydronephrosis. No enhancing lesions are seen. There are multiple distended loops of small bowel. No definitive transition point is seen. Wall thickening of the colon is thought to be due to nondistention. There is an enlarged appendix measuring up to 1.1 cm in diameter, concerning for appendicitis (image 114, series 2). No adjacent fluid collections are seen. There is also marked diverticulosis of the descending and sigmoid colon. There is focal wall thickening, and a portion of the sigmoid colon concerning for diverticulitis (image 149, series 2). There is trace free fluid in the pelvis. No free air is seen. The aorta is normal in caliber. There is mild atherosclerosis. There is grade 2 anterolisthesis at L4-L5. There are degenerative changes in the spine. IMPRESSION: 1. Enlarged appendix concerning for acute appendicitis without findings of perforation. 2. Diverticulosis with focal wall thickening in the sigmoid colon concerning for acute diverticulitis. If the clinical findings are not compatible with diverticulitis, consider follow-up colonoscopy. 3. Multiple prominent loops of small bowel throughout the abdomen. No definite transition point is seen. This may represent ileus, with low-grade small bowel obstruction not excluded. 4. Airspace consolidation in the right lower lobe, most likely atelectasis, possibly pneumonia. 5. Large hiatal hernia. Dictated on workstation # [id number] Dict: 09/10/22 1434 Trans: 09/10/22 1458 [id number] Interpreted by: JI CERNA MD Assessment/Plan Assessment/Plan Assessment/Plan Acute appendicitis Right Lower lobe consolidation Hx of COPD, Emphysema Leukocytosis I reviewed the CT myself (went over her old CT's and the SBFT); I can see the dilated appendix, there is not much inflammation around it. I also discussed her case with the ED provider. She does have elevated WBC at 22K and I believe this is most likely an acute appendicitis. She is NPO, IV fluids, IV ABX and will get consent for Laparoscopic appendectomy and all other indicated procedures. I did talk to her about the increased risks of surgery because of adhesions from her previous surgeries. We also discussed complications not limited to pain, bleeding, infection, scar, damage to bowel and need for further procedure. All questions answered to her satisfaction. TRUONG BOSS DO Sep 10, 2022 16:30
[2022-09-10] MEDS: LACTATED RINGERS 1,000 ML IV PRN ×2 (16:40→17:30)
[2022-09-10] MEDS ORDERED: PHENYLEPHRINE 100 MCG/ML 10 ML (ANESTHESIA) SYR ONE (16:57)
[2022-09-10] MEDS ORDERED: NEOSTIGMINE (BLOXIVERZ ) 1 MG/1ML 10 ML VIAL ONE (17:36)
[2022-09-10] MEDS ORDERED: GLYCOPYRROLATE 0.2 MG/ML (ROBINUL) 2 ML VIAL ONE (17:36)
[2022-09-10] MEDS ORDERED: SUGAMMADEX 500 MG/5 ML VIAL (BRIDION) IV ONE (18:04)
[2022-09-10] MEDS ORDERED: SEVOFLURANE (ULTANE) 15 ML INHAL SOLN ONE (18:10)
[2022-09-10] MEDS ORDERED: morphine INJ 10 MG/ML 1ML (SYR OR VIAL) IVP ONE (18:15)
[2022-09-10] MEDS ORDERED: ONDANSETRON 4 MG/2 ML (SDV) Z0FRAN IVP PRN ×2 (18:15)
--- NOTE | 2022-09-10 18:19 | Progress Note-Post Operative ---
Post-Operative Progess Note Surgeon (s)/Jig Filler (s) Surgeon TRUONG BOSS DO Jig Filler: ASIF Manrique Pre-Operative Diagnosis Acute appendicitis Post-Operative Diagnosis same Procedure & Operative Findings Date of Procedure 09/10/22 Procedure Performed/Findings PROCEDURE: Laparoscopic appendectomy. COMPLICATIONS: None. INDICATIONS: The patient is a 77 year old female who has been having right lower quadrant abdominal pain. Patient's exam consistent with appendicitis. I discussed risk and benefits of laparoscopic appendectomy and all indicated procedures with the possibility being a normal appendix. The patient understands the risks and benefits and wishes to proceed. Consent was signed on the chart. DESCRIPTION OF PROCEDURE: The patient was taken to the operating suite, prepped and draped in a sterile fashion. Timeout was performed. Local anesthetic was infiltrated just abovethe umbilicus and 11- blade scalpel was used to make a skin incision. Cautery was used to dissect down to the fascia and scored. Kochers were used to grasp and elevate it and the abdomen was then entered. A 0 Vicryl was placed in a [id number] fashion for closure at the end of the case. The balloon trocar was inserted into the abdomen and pneumoperitoneum was achieved. Under direct visualization of the laparoscope, a 5 mm trocar was placed in the suprapubic region and a 5 mm trocar was placed in the left lower quadrant. Appendix was located, there was fibrinous material on the small bowel and some small bowel was adhered to the appendix. There was also some purulent fluid in the pelvis and around the right paracolic gutter. Pictures were taken. Carefully freed the small bowel off the appendix, it peeled away relatively easily. Used the Ligasure to come across the mesoappendix, coming across the appendiceal artery and getting down to the base of the appendix. Once at the base an Endo-MAIDHA 2.5 stapler was then fired across the base of the appendix. It was then placed in an Endobag and removed through the 12 mm trocar site. The abdomen was then copioulsy irrigated and suctioned. There was some adhesions and inflammation around the sigmoid colon and it felt thickened. I also found more purulent f luid down around the rectum and under the uterus. I elected to place a 19 Burmese xuan drain in the pelvis and brought it out through the left lower quadrant port site. Sutured in place with 3-0 Nylon. The abdomen was then desufflated and the trocars were removed. The 0 Vicryl placed at the beginning of the case was then tied closing the 12 mm fascial defect. The skin was then closed using 4-0 Monocryl in a subcuticular fashion. The abdomen was then washed and dried and Skin Affix was placed over the incisions. The patient tolerated the procedure well without any complications and was taken to the recovery room in stable condition. Anesthesia Type GET Estimated Blood Loss Estimated blood loss (mL): scant Specimens/Packing Specimens Removed appendix purulent/fibrinous material sent for culture TRUONG BOSS DO Sep 10, 2022 18:19
[2022-09-10] MEDS: LACTATED RINGERS 1,000 ML IV SCH (19:34)
[2022-09-10] MEDS: PIPERACILLIN SODIUM/TAZOBACTAM 4.5 GM in NS (IVPB) 100 ML IV SCH (22:14)
[2022-09-11] MEDS: LACTATED RINGERS 1,000 ML IV SCH ×2 (02:03→03:13)
[2022-09-11 03:15] VITALS: BP 104/55
[2022-09-11] MEDS: PIPERACILLIN SODIUM/TAZOBACTAM 4.5 GM in NS (IVPB) 100 ML IV SCH (06:02)
--- NOTE | 2022-09-11 07:06 | Progress Note - Surgery ---
DANIEL MEDINA 09/11/22 0706: Subjective Date Seen by a Provider: Sep 11, 2022 Time Seen by a Provider: 06:53 Subjective/Events-last exam Patient is laying in her bed in no acute distress this morning, accompanied by her daughter. Patient states she is feeling "much better" this morning. She says her abdominal pain has subsided since surgery. She is hesitant to cough due to her concern of her incisions opening. She is tolerating clear liquids without pain. She is voiding without issue. She has not had a bowel movement of flatus since surgery. She denies any SOB, chest pain, headache, fever, chills, or N/V/D. She has not ambulated since surgery, says she still feels week since she was sedentary since her abdominal pain started on Wednesday and feels deconditioned. No other complaints at this time. Review of Systems General: No Chills; Fatigue; No Appetite HEENT: No Head Aches, No Sore Throat Pulmonary: No Dyspnea; Cough Cardiovascular: No: Chest Pain, Edema Gastrointestinal: No: Nausea, Vomiting, Abdominal Pain Genitourinary: No Dysuria, No Hematuria Musculoskeletal: back pain; No: neck pain Neurological: Weakness; No: Numbness Objective Exam Vital Signs Date Time Temp Pulse Resp B/P (MAP) Pulse Ox O2 Delivery O2 Flow Rate FiO2 09/11/22 03:15 36.0 72 18 104/55 (71) 98 Nasal Cannula 3.00 09/10/22 23:25 36.9 85 18 106/58 (74) 95 Nasal Cannula 3.00 09/10/22 21:20 94 4.00 09/10/22 20:32 Nasal Cannula 4.00 09/10/22 19:26 4.00 09/10/22 19:15 37.0 97 16 113/60 (77) 93 Nasal Cannula 3.00 09/10/22 18:50 High Flow N/C 4.00 09/10/22 18:50 36.4 28 110/57 (74) 92 High Flow N/C 4.00 09/10/22 18:40 28 107/56 (73) 93 OxyMask 4.00 09/10/22 18:40 OxyMask 4.00 09/10/22 18:30 34 116/53 (74) 94 OxyMask 8 09/10/22 18:25 OxyMask 8 09/10/22 18:20 30 110/54 (72) 94 OxyMask 8 09/10/22 18:11 37.2 30 97/40 (59) 93 OxyMask 8 09/10/22 18:11 OxyMask 8 09/10/22 16:00 Room Air 09/10/22 15:45 36.3 84 17 131/74 96 Room Air 09/10/22 13:19 36.6 97 18 121/74 (90) Room Air I & O 09/11/22 07:00 Intake Total 2600 ml Output Total 565 ml Balance 2035 ml Capillary Refill : Less Than 3 Seconds General Appearance: No Apparent Distress, WD/WN, Other (Slow mentation ) HEENT: PERRL/EOMI, Moist Mucous Membranes Neck: Non Tender, Supple Respiratory: Chest Non Tender, No Accessory Muscle Use, No Respiratory Distress, Wheezing (Bilateral lower lobe expritory wheeze) Cardiovascular: Regular Rate, Rhythm, No Murmur Peripheral Pulses: 2+ Radial Pulses (R), 2+ Radial Pulses (L) Gastrointestinal: soft, no organomegaly; No distended, No guarding, No rebound, No tenderness Extremity: No Calf Tenderness, No Pedal Edema Neurologic/Psychiatric: Alert, Oriented x3 Skin: Normal Color, Warm/Dry, Other (Port incision sites clean, dry and intact) Results Lab Laboratory Tests 09/10/22 13:20: White Blood Count 22.3H, Red Blood Count 4.16, Hemoglobin 15.2, Hematocrit 44, Mean Corpuscular Volume 106H, Mean Corpuscular Hemoglobin 37H, Mean Corpuscular Hemoglobin Concent 35, Red Cell Distribution Width 12.3, Platelet Count 347, Mean Platelet Volume 10.3, Immature Granulocyte % (Auto) 1, Neutrophils (%) (Auto) 92H, Lymphocytes (%) (Auto) 3L, Monocytes (%) (Auto) 4, Eosinophils (%) (Auto) 0, Basophils (%) (Auto) 0, Neutrophils # (Auto) 20.5H, Lymphocytes # (Auto) 0.6L, Monocytes # (Auto) 0.9, Eosinophils # (Auto) 0.0, Basophils # (Auto) 0.1, Immature Granulocyte # (Auto) 0.2H, Neutrophils % (Manual) 89, Lymphocytes % (Manual) 2, Monocytes % (Manual) 4, Toxic Granulation 2+, Platelet Estimate ADEQUATE, Macrocytosis MODERATE, Sodium Level 137, Potassium Level 4.5, Chloride Level 106, Carbon Dioxide Level 18L, Anion Gap 13, Blood Urea Nitrogen 29H, Creatinine 1.23, Estimat Glomerular Filtration Rate 46, BUN/Creatinine Ratio 24, Glucose Level 125H, Calcium Level 9.9, Corrected Calcium 10.1, Total Bilirubin 1.0, Aspartate Amino Transf (AST/SGOT) 29, Alanine Aminotransferase (ALT/SGPT) 28, Alkaline Phosphatase 152H, Total Protein 7.4, Albumin 3.8, Lipase 13 Assessment/Plan Assessment/Plan Assessment/Plan S/P Laparoscopic appendectomy- Day 1 Acute appendicitis- Resolved-Appendectomy Right Lower lobe consolidation History of COPD/ Emphysema Leukocytosis Plan Pain management Encourage ambulation Monitor incision sites Tolerating clear liquid diet/ advance as tolerated. JUAN RAMON CALLAWAY DO 09/11/22 1457: Subjective Time Seen by a Provider: 14:27 Subjective/Events-last exam Pt seen and examined, states she hasn't walked much and only had liquids. Pain is controlled. State she feels a little weak. Review of Systems General: No Chills; Fatigue Pulmonary: No Dyspnea; Cough Cardiovascular: No: Chest Pain Gastrointestinal: No: Nausea, Vomiting, Abdominal Pain Objective Exam General Appearance: No Apparent Distress, WD/WN Respiratory: Chest Non Tender, No Accessory Muscle Use, No Respiratory Distress, Wheezing (Bilateral lower lobe expritory wheeze) Cardiovascular: Regular Rate, Rhythm, No Murmur Gastrointestinal: soft, no organomegaly, other (Incisions c/d/i, bulb drain with serosanguinous fluid) Neurologic/Psychiatric: Oriented x3 Assessment/Plan Assessment/Plan Assessment/Plan S/P Laparoscopic appendectomy- Day 1 Acute appendicitis- Resolved-Appendectomy Right Lower lobe consolidation History of COPD/ Emphysema Leukocytosis Plan Pt told that everything we are doing for her here, she can do at home. She will go home with pain meds, oral ABX, told to ambulate every hour (at first with assist from family) and to use her IS. F/U in a week. Supervisory-Addendum Brief Verification & Attestation Participated in pt care: history, MDM, physical Personally performed: exam, history, MDM, supervision of care Care discussed with: Medical Student Procedures: n/a Verification and Attestation of Medical Student E/M Service A medical student performed and documented this service. I then reviewed and verified all information documented by the medical student and made modifications to such information, when appropriate. I personally performed a physical exam, medical decision making and then discussed any differences between the notes and made revisions as necessary to create one note. Juan Ramon Montero , 09/11/22 , 14:57 DANIEL MEDINA Sep 11, 2022 07:06 JUAN RAMON MONTERO DO Sep 11, 2022 14:57
[2022-09-11 07:38] VITALS: BP 116/67
[2022-09-11] MEDS ORDERED: PANTOPRAZOLE 40 MG (PROTONIX) VIAL IVP SCH (09:00)
[2022-09-11 11:22] VITALS: BP 120/68
--- NOTE | 2022-09-11 14:23 | Anesthesia-General Post-Op ---
General Patient Condition Mental Status/LOC: Same as Preop Cardiovascular: Satisfactory Nausea/Vomiting: Absent Respiratory: Satisfactory Pain: Controlled Complications: Absent Post Op Complications Complications None Follow Up Care/Instructions Patient Instructions None needed. Anesthesia/Patient Condition Patient Condition Patient is doing well, no complaints, stable vital signs, no apparent adverse anesthesia problems. No complications reported per nursing. TRENTON HEWITT DO Sep 11, 2022 14:23
[2022-09-11] MEDS ORDERED: AMOX-355 PO (14:59)
[2022-09-11] MEDS ORDERED: ACHYD1T PO (14:59)
--- NOTE | 2022-09-11 15:03 | Discharge Inst-Surgical ---
Discharge Inst-Surgical Depart Medication/Instructions New, Converted or Re-Newed RX: Transmitted to Pharmacy Patient Instructions Follow up Appt: Make appointment for 1 week. [phone] Instructions: No lifting greater than 20 pounds. No strenuous activity. May shower in 24 hours, no tub bath or soaking. Use incentive spirometer at home as directed. No Smoking Skin/Wound Care: May remove bandages in am. You need to leave the Dermabond on incision it will fall off on it's own. Symptoms to Report: Appetite Changes, Extremity Discoloration, Numbness/Tingling, Swelling Increased, Bleeding Excessive, Eyesight Changes, Pain Increased, Urine Color Change, Constipation(Persistent), Fever over 101 degree F, Pain/Pressure in chest, Urinating Difficulty, Cough Up/Vomit Blood, Heart Beat Irreg/Pounding, Pain/Pressure in jaw, Cramps in feet or legs, Lightheadedness, Pain/Pressure in shoulder, Diarrhea(Persistent), Memory Changes Suddenly, Questions/Concerns, Weight gain consecutive days, Dizziness/Fainting, Nausea/Vomiting, Shortness of Breath, Weight gain over 2 pounds If questions or concerns contact your physician Or seek help at emergency department. Activity Activity as Tolerated: Yes Activity Instructions: Avoid Stress to Incision Driving Instructions: No Driving/Refer to Dr. Veronica Discharge Diet: No Restrictions Diet After 24 Hours: Clear Liquid if Nauseous If Any Problems/Questions/Issu: Contact Your Physician, Go to Emergency Room Skin/Wound Care Infection Signs and Symptoms: Increased Redness, Foul Odor of Wound, Increased Drainage, Skin Itchy or Has a Rash, Increased Swelling, Temperature Above 101 F Wound Care Comment: drain care Bathing Instructions: Shower Stitches/Milly/Dermabond Dis: Dermabond Ice Pack: Ice On and Off Site TRUONG BOSS DO Sep 11, 2022 15:03
[2022-09-11 15:55] VITALS: BP 120/68
== END 2022-09-11 15:55 | disposition home or self-care (01) ==
LOC: EDUNIT# 13:18 → ER 13:20 → 4TH 15:22 → SDC 15:22 → 4TH 18:11 → UNDOADMOB 18:12 → UNDODISOB 09-11 15:55 → SDC 09-11 15:55
PROVIDERS: ATTEND Surgery
DX: K35.80 Unspecified acute appendicitis (principal); K52.9 Noninfective gastroenteritis and colitis, unspecified; J43.9 Emphysema, unspecified; D72.829 Elevated white blood cell count, unspecified; J18.1 Lobar pneumonia, unspecified organism; F17.210 Nicotine dependence, cigarettes, uncomplicated
CPT/HCPCS: 36415; 74177; 80053; 83690; 85007; 85027; 87070; 87075; 87077; 87101; 87186; 87205; 88304; 94664; 96361; 96366; 96374; 96375

== ENCOUNTER 2022-10-16 12:37 | Outpatient (CLI) | payer MEDICARE, OTHER ==
[~2022-10-16] VITALS: Ht 154.9 cm; Wt 70.8 kg
[~2022-10-16 12:37] MED LIST changes: +ACHYD1T PO; +ALBU18HF2 INH; +AMOX-355 PO; +FLUT1DIS27 INH; +HYDR500C2 PO; +VALS80TA31 PO
[2022-10-16] MEDS ORDERED: IBUP-1780 PO (13:46)
[2022-10-16] MEDS ORDERED: ASPI-1238 PO (13:46)
[2022-10-16] MEDS ORDERED: ONDA4TAB11 SL (13:46)
== END 2022-10-16 13:54 | disposition home or self-care (01) ==
LOC: PREOP 12:37
PROVIDERS: ATTEND Surgery
DX: Z01.818 Encounter for other preprocedural examination (principal)

== ENCOUNTER 2022-10-26 09:07 | Day surgery (SDC) | payer MEDICARE, OTHER ==
[~2022-10-26] VITALS: Ht 154 cm; Wt 70.8 kg
[~2022-10-26 09:07] MED LIST changes: +ASPI-1238 PO; +IBUP-1780 PO; +ONDA4TAB11 SL
[2022-10-26] MEDS ORDERED: LACTATED RINGERS 1,000 ML IV STA (09:11)
[2022-10-26 09:45] VITALS: BP 110/68
--- NOTE | 2022-10-26 09:54 | Progress Note-Pre Operative ---
Pre-Operative Progress Note Date of Available H&P: Oct 15, 2022 Date H&P Reviewed: Oct 26, 2022 Time H&P Reviewed: 09:33 History & Physical: H&P Reviewed, Patient Examed, No changes noted Pre-Operative Diagnosis: Colitis and diverticulosis TRUONG BOSS DO Oct 26, 2022 09:54
[2022-10-26] MEDS ORDERED: MIDAZOLAM 2 MG/2 ML (VERSED) VIAL ONE (10:52)
[2022-10-26] MEDS ORDERED: PROPOFOL INJECTION 50 ML IV ONE (10:52)
--- NOTE | 2022-10-26 11:22 | Endoscopy Discharge Instruct ---
Endo Procedure/Findings Findings 1.: Diverticulosis 2.: Internal Hemorrhoids Discharge Instructions - Activity: You might feel a little sleepy until tomorrow. This is due to the medicine you received to relax you. Until tomorrow, you should: NOT drive a car, operate machinery or power tools. NOT drink any alcoholic beverages. NOT make any important decisions or sign importortant papers. Do not return to work until tomorrow, unless otherwise instructed. Resume previous activities tomorrow. Diet: Start by taking liquids. If you tolerate liquids, advance to solid food. 1.: Colonscopy in 10 years Notify Physician - If you experience excessive bleeding, unusual abdominal pain, fever, or chest pain, contact your doctor immediately. Follow-Up: Other Follow up in my office in one week TRUONG BOSS DO Oct 26, 2022 11:22
--- NOTE | 2022-10-26 11:22 | Progress Note-Post Operative ---
Post-Operative Progess Note Surgeon (s)/Subsystems Engineer (s) Surgeon TRUONG BOSS DO Subsystems Engineer: ASIF Phipps Pre-Operative Diagnosis Colitis and diverticulosis Post-Operative Diagnosis Diverticula int hemorrhoids Procedure & Operative Findings Date of Procedure 10/26/22 Procedure Performed/Findings Colonoscopy PROCEDURE NOTE: After informed consent was obtained, the patient was brought to the endoscopy suite, placed in bed in left lateral decubitus position. She was administered IV sedation by the LEAVE SPECIALIST who then monitored her vitals the entire time, heart rate, blood pressure and pulse ox and the scope was inserted, pushed all the way to about [address] in I did not see any ulcerations or colitis, it was a little twisty, but able to get the scope past the sigmoid. Pushed into the cecum, took a picture of appendiceal orifice and noted the ileocecal valve. Then slowly withdrew the scope insufflating to look circumferentially at the posadas starting in the cecum, up the ascending colon to the hepatic flexure, then down the transverse colon, splenic flexure, into the descending colon down in the sigmoid and then into the rectal vault and took a picture of the internal hemorrhoids as I removed the scope. The patient tolerated the procedure. She was recovered in endoscopy suite. Recommended for repeat colonoscopy in 10 years. Anesthesia Type IV sedation by LEAVE SPECIALIST Estimated Blood Loss Estimated blood loss (mL): none Specimens/Packing Specimens Removed none TRUONG BOSS DO Oct 26, 2022 11:22
[2022-10-26 11:25] VITALS: BP 140/74
[2022-10-26 11:30] VITALS: BP 108/66
[2022-10-26] MEDS ORDERED: ONDANSETRON 4 MG/2 ML (SDV) Z0FRAN ONE (11:41)
[2022-10-26 12:20] VITALS: BP 108/66
--- NOTE | 2022-10-26 13:17 | Anesthesia-General Post-Op ---
MAC Patient Condition Mental Status/LOC: Same as Preop Cardiovascular: Satisfactory Nausea/Vomiting: Absent Respiratory: Satisfactory Pain: Controlled Complications: Absent Post Op Complications Complications None Follow Up Care/Instructions Patient Instructions None needed. Anesthesiology Discharge Order Discharge Order Patient is doing well, no complaints, stable vital signs, no apparent adverse anesthesia problems. No complications reported per nursing. SANDRA BRANCH CRNA Oct 26, 2022 13:17
== END 2022-10-26 12:35 | disposition home or self-care (01) ==
LOC: ENDO 09:07
PROVIDERS: ATTEND Surgery
DX: K57.30 Diverticulosis of large intestine without perforation or abscess without bleeding (principal); K64.8 Other hemorrhoids; R93.5 Abnormal findings on diagnostic imaging of other abdominal regions, including retroperitoneum; F17.210 Nicotine dependence, cigarettes, uncomplicated